=== PATIENT | female | born 1990 | race Caucasian/White ===

== ENCOUNTER 2020-01-03 16:03 | Inpatient (IN) ==
[2020-01-03] MEDS ORDERED: SODIUM CHLORIDE 0.9% 1000ML 2,000 ML IV SCH (16:15)
[2020-01-03] MEDS ORDERED: VANCOMYCIN HCL 1,500 MG in SODIUM CHLORIDE 0.9% 500 ML IV ONE (16:24)
[2020-01-03] MEDS ORDERED: KETOROLAC 30 MG/ML VIAL IV STA (16:24)
[2020-01-03] MEDS ORDERED: VANCOMYCIN CONSULT ACTIVE PRN ×3 (16:24→21:36)
[2020-01-03] MEDS ORDERED: ONDANSETRON INJ 2 MG/ML 2 ML VIAL IV STA (16:24)
[2020-01-03] MEDS ORDERED: CEFEPIME 2,000 MG/20 ML VIAL IV STA (16:24)
--- NOTE | 2020-01-03 16:40 | Emergency Department Note ---
Impression & Plan Atypical pneumonia, Drug abuse, IV, Thrombocytopenia, Hypocalcemia, Hypokalemia ED Provider Note NAME: ARMINDA ANGELES AGE: 29 SEX: F : 1990 ARRIVES VIA: Walk-In INFORMANT: Patient, ED PROVIDER(S): Valente Dawson MD Chief Complaint: Generalized pain, easy bruising HPI: Patient does complain of some generalized pain. The patient states that she had similar symptoms approximate 30 days prior had presented to [facility] had a negative cover test at that time. Patient does admit to IV drug abuse primarily using heroin which she injects in her arms and hands. The patient states that she was struggling today and was thinking of using again but had some over lysed body pain and did notice some easy bruising which she was concerned about. Patient only localizes this to several small areas over the huston nds and feet. The patient denies any trauma. The patient's pain is diffuse nonradiating sharp. The patient has not take anything for it at home. Palpation does make it worse. Patient does complain of some weakness and mild dyspnea. Patient does use tobacco. The patient has had nausea but no vomiting. Patient does not have menstrual periods as the patient has an implant. Patient does have a son. ROS: See HPI for pertinent positives and negatives. A total of 10 systems were reviewed and otherwise negative. Past medical history: See below Surgical history: See below Social history: See below Physical Exam: GENERAL: Ill in appearance, moderate distress. EYE EXAM: Normal conjunctiva. PERRL, no anisocoria and EOM's grossly intact w/o pain. [OROPHARYNX: Moist mucus membranes. Grossly normal dentition. [No exudate, posterior pharynx is clear, no tonsillar/uvular deviation or swelling. No cervical adenopathy, no submental, submandibular, or sublingual swelling.]] NECK: Supple, no nuchal rigidity, no adenopathy, non-tender. No signs of meningismus. LUNGS: Clear to auscultation. Normal chest wall mechanics. HEART: Tachycardic and regular, no MRG. ABDOMEN: Abdomen soft, non-tender, normo-active bowel sounds, no masses, no rebound or guarding. BACK: No CVA TTP. SKIN: No rashes and no bruising. UPPER EXTREMITIES: Small areas of bruising over the dorsal aspect of the bilateral hands, no obvious erythema or fluctuance or drainage. Possible Janeway lesions over the palm. LOWER EXTREMITIES: Grossly normal, no edema. NEURO EXAM: A&O x3, cranial nerves II-XII grossly intact, normal speech, moves all 4 extremities on command w/o issue. Differential diagnoses: Reactive airway disease, pneumonia, pneumothorax, COPD, CHF, infections, cardiac ischemia, pulmonary embolism, musculoskeletal, gastrointestinal, as well as other pathologies. Course: Patient was seen and evaluated the bedside. Full history physical exam was performed. EKG: Indication: Shortness of breath Sinus tachycardia, rate 120, normal intervals, normal axis, no ST changes or T WI. Imaging Studies: Radiology results as stated below per my review in the radiologist's interpretation: XR chest 1V portable CLINICAL HISTORY: weakness RESPIRATORY DIFFICULTY COMPARISON STUDY: No previous studies for comparison. FINDINGS: The heart is normal in size. There are patchy airspace opacities within the left lower lung zone. There is an equivocal opacity within the axillary portion of the right chest. There is no failure. There are no pleural effusions. There is no pneumothorax. IMPRESSION: Left basilar airspace opacities which may represent a pneumonia. Clinical correlation is advocated. Films subsequent to treatment are recommended in follow-up ACT 112: Negative or not required by law. Electronically signed by: Edi Elizondo M.D. 01/03/2020 5:03 PM Dictated: 01/03/201700 Transcribed: 01/03/201700 CT ANGIOGRAM OF THE CHEST CLINICAL HISTORY: Atypical chest pain, cough, shortness of breath. Possible pulmonary embolism COMPARISON STUDY: Chest x-ray dated 01/03/2020 TECHNIQUE: Following the IV administration of 118 mL of Optiray-320, CT angiogram of the thorax was performed from the thoracic inlet to the lung bases utilizing the pulmonary embolus protocol. Images are reviewed in the axial, sagittal, and coronal planes. IV contrast was administered without complication. MIP imaging was performed. A dose lowering technique was utilized adhering to the principles of ALARA. CT DOSE: 235.31 mGy.cm FINDINGS: Images to the upper abdomen reveal hepatic steatosis and probable splenomegaly. Mediastinal and hilar lymph nodes are the upper limits of normal in size, likely reactive. There was no evidence of thoracic aortic dilatation. There were no pulmonary artery filling defects to indicate acute pulmonary embolism. No pleural effusions are visualized. There are multifocal nodular peripheral airspace opacities some which demonstrate potential early cavitation. An infectious/inflammatory etiology including atypical pneumonia is favored over neoplasm. Septic emboli should be considered within the differential. IMPRESSION: 1. No evidence of acute pulmonary embolism 2. Multifocal nodular peripheral airspace opacities some of which appear to demonstrate early cavitation. An infectious/inflammatory etiology is favored over neoplasm. Septic emboli should be considered within the differential 3. Hepatic steatosis and probable splenomegaly ACT 112: Negative or not required by law. Electronically signed by: Edi Elizondo M.D. 01/03/2020 5:47 PM Dictated: 01/03/201738 Transcribed: 01/03/201738 Cardiac monitoring: An order was placed for continuous cardiac monitoring. The monitor shows a rate of 125 with sinus tachycardia rhythm. Procedures: Limited Point of Care Cardiac Ultrasound performed by me: Indication: Tachycardia, shortness of breath Findings: Limited echocardiography revealed trace pericardial fluid. No eviden ce of tamponade. Wall motion appeared grossly normal but with possible enlargement of the RV. HR 120s. Additional findings: IVC is flat with respiration, negative for B-lines bilateral lung lafleur. Impression: Tachycardia with trace pericardial effusion and possible RV enlargement. MDM: Patient does present with concern for IV drug abuse generalized pain. The patient does have some sinus tachycardia. I did perform a bedside [id number] ultrasound which showed may be trace pericardial effusion but no tamponade, and slight enlarged RV. Given this with the patient's known history of IV drug abuse while this could be withdrawal symptoms from her not using heroin the patient does have a flat IVC and is certainly volume depleted. Blood work was obtained along with blood cultures, lactate, empiric antibiotics were ordered. I did use several areas on the patient's hands they are not specifically on the fingertips. The patient may have evidence of some Janeway lesions. Patient does have a normal white count and hemoglobin. Mild thrombocytopenia noted. The patient does have some mild changes in her coagulation studies and associated hypokalemia. Patient did receive additional IV fluids and calcium. The patient does have mild changes in her LFTs and is seen to have hepatic steatosis on her CT angiography of the chest. No evidence of any PE but likely atypical pneumonia versus septic emboli. Patient was admitted to the medicine service by Dr. Henry. Past Med/Surg History Medical History Heroin use Surgical History No pertinent past surgical history Social History Smoking Status: Current every day smoker Hx Substance Use: Yes Non-Prescribed Medications: Heroin Last Used Substance Other:: 3 days prior Feels Safe at Home: Yes Allergies Allergies Allergy/AdvReac Type Severity Reaction Status Date / Time No Known Allergies Allergy Unverified 01/03/20 17:16 Home Meds Home Medications Medication Instructions Recorded Confirmed No Known Home Medications 01/03/20 01/03/20 Results & Data (ED) Vital Signs Vital Signs - 24 hr 01/03/20 16:07 01/03/20 16:11 01/03/20 16:22 Temperature 37.3 C Temperature Source Oral Pulse Rate 116 H 124 H Pulse Rate [Bilateral Apical] Pulse Rate from SpO2 Sensor Respiratory Rate 16 28 H Respiratory Depth Normal Blood Pressure 74/54 L 94/59 L Blood Pressure [Right Arm] Blood Pressure Mean 60 66 Blood Pressure Mean [Right Arm] Pulse Oximetry 99 Oxygen Delivery Method Room Air Room Air Sepsis Recent Fever Within 48 Hours No Sepsis New/Unexplained Change in Mental Status No Sepsis Action Taken by Nursing No Action Required 01/03/20 16:30 01/03/20 16:54 01/03/20 17:00 Temperature Temperature Source Pulse Rate 128 H 129 H 123 H Pulse Rate [Bilateral Apical] Pulse Rate from SpO2 Sensor 129 H 123 H Respiratory Rate 17 22 39 H Respiratory Depth Blood Pressure 90/67 L 84/55 L 86/55 L Blood Pressure [Right Arm] Blood Pressure Mean 73 61 64 Blood Pressure Mean [Right Arm] Pulse Oximetry 94 94 Oxygen Delivery Method Room Air Room Air Sepsis Recent Fever Within 48 Hours Sepsis New/Unexplained Change in Mental Status Sepsis Action Taken by Nursing 01/03/20 17:12 01/03/20 17:15 01/03/20 17:35 Temperature Temperature Source Pulse Rate 112 H 107 H Pulse Rate [Bilateral Apical] Pulse Rate from SpO2 Sensor 113 H 107 H 105 H Respiratory Rate 36 H 30 H Respiratory Depth Blood Pressure 84/52 L 88/50 L 77/40 L Blood Pressure [Right Arm] Blood Pressure Mean 58 63 52 Blood Pressure Mean [Right Arm] Pulse Oximetry 95 94 94 Oxygen Delivery Method Room Air Room Air Room Air Sepsis Recent Fever Within 48 Hours Sepsis New/Unexplained Change in Mental Status Sepsis Action Taken by Nursing 01/03/20 17:41 01/03/20 17:45 01/03/20 17:47 Temperature Temperature Source Pulse Rate 99 H 99 H 102 H Pulse Rate [Bilateral Apical] Pulse Rate from SpO2 Sensor 100 H 99 H 102 H Respiratory Rate 30 H 27 H 21 Respiratory Depth Blood Pressure 80/42 L 77/39 L 80/47 L Blood Pressure [Right Arm] Blood Pressure Mean 57 53 58 Blood Pressure Mean [Right Arm] Pulse Oximetry 94 93 95 Oxygen Delivery Method Room Air Room Air Room Air Sepsis Recent Fever Within 48 Hours Sepsis New/Unexplained Change in Mental Status Sepsis Action Taken by Nursing 01/03/20 17:53 01/03/20 18:00 01/03/20 18:15 Temperature Temperature Source Pulse Rate 107 H 100 H 103 H Pulse Rate [Bilateral Apical] Pulse Rate from SpO2 Sensor 107 H 229 H 102 H Respiratory Rate 27 H 30 H 25 H Respiratory Depth Blood Pressure 81/46 L 79/46 L 71/47 L Blood Pressure [Right Arm] Blood Pressure Mean 59 55 57 Blood Pressure Mean [Right Arm] Pulse Oximetry 98 93 96 Oxygen Delivery Method Room Air Room Air Room Air Sepsis Recent Fever Within 48 Hours Sepsis New/Unexplained Change in Mental Status Sepsis Action Taken by Nursing 01/03/20 18:19 01/03/20 18:30 01/03/20 18:59 Temperature Temperature Source Pulse Rate 102 H 92 H Pulse Rate [Bilateral Apical] 98 H Pulse Rate from SpO2 Sensor 103 H 92 H Respiratory Rate 33 H 30 H 20 Respiratory Depth Blood Pressure 75/45 L 83/53 L Blood Pressure [Right Arm] 78/55 L Blood Pressure Mean 55 58 Blood Pressure Mean [Right Arm] 62 Pulse Oximetry 93 99 97 Oxygen Delivery Method Room Air Room Air Room Air Sepsis Recent Fever Within 48 Hours Sepsis New/Unexplained Change in Mental Status Sepsis Action Taken by Nursing 01/03/20 19:39 01/03/20 19:50 01/03/20 20:17 Temperature Temperature Source Pulse Rate Pulse Rate [Bilateral Apical] 96 H 91 H 91 H Pulse Rate from SpO2 Sensor Respiratory Rate 20 20 20 Respiratory Depth Blood Pressure Blood Pressure [Right Arm] 86/57 L 93/62 L 88/58 L Blood Pressure Mean Blood Pressure Mean [Right Arm] 66 72 68 Pulse Oximetry 98 98 98 Oxygen Delivery Method Room Air Room Air Room Air Sepsis Recent Fever Within 48 Hours Sepsis New/Unexplained Change in Mental Status Sepsis Action Taken by [facility] Medications Current Medication List: was personally reviewed by me Laboratory Data Attestation: I reviewed the patient's lab results. Result diagrams: 01/03/20 16:35 01/03/20 16:35 Lab Results 01/03/20 01/03/20 01/03/20 Range/Units 16:35 16:35 16:35 WBC 8.65 (4.8-10.8) K/uL RBC 4.62 (4.2-5.4) M/uL Hgb 12.7 (12.0-16.0) g/dL Hct 36.1 L (37-47) % MCV 78.1 L (80-100) fL MCH 27.5 (25-34) pg MCHC 35.2 (32-36) g/dL RDW Std Deviation 44.8 (36.4-46.3) fL RDW Coeff of Liliya 15.7 H (11.5-14.5) % Plt Count 107 L (130-400) K/uL Immature Gran % (Auto) 0.8 % Neut % (Auto) 92.8 % Lymph % (Auto) 4.2 % Oliver % (Auto) 2.0 % Eos % (Auto) 0.1 % Baso % (Auto) 0.1 % Neut # (Auto) 8.03 H (1.4-6.5) K/uL Lymph # (Auto) 0.36 L (1.2-3.4) K/uL Oliver # (Auto) 0.17 (0.11-0.59) K/uL Eos # (Auto) 0.01 (0-0.5) K/uL Baso # (Auto) 0.01 (0-0.2) K/uL Immature Gran # (Auto) 0.07 H (0.00-0.02) K/uL Toxic Granulation 1+ Toxic Vacuolation 1+ Dohle Bodies 1+ Platelet Estimate Decreased L (Normal) Echinocytes 1+ ESR (0-21) mm/hr PT (9.0-12.0) Seconds INR (0.9-1.1) APTT (21.0-31.0) Seconds PTT Ratio Sodium 131 L (136-145) mmol/L Potassium 3.2 L (3.5-5.1) mmol/L Chloride 94 L (98-107) mmol/L Carbon Dioxide 27 (21-32) mmol/L Anion Gap 10.0 (3-11) BUN 19 H (7-18) mg/dl Creatinine 1.12 (0.6-1.2) mg/dl Est Cr Clr Drug Dosing 67.9 ml/min Est GFR ( Amer) 78.0 Est GFR (Non-Af Amer) 67.3 BUN/Creatinine Ratio 16.6 (10-20) Glucose 95 (70-99) mg/dl Lactate 3.4 H* (0.4-2.0) mmol/L Calcium 8.3 L (8.5-10.1) mg/dl Magnesium 2.0 (1.8-2.4) mg/dl Total Bilirubin 1.4 H (0.2-1) mg/dl AST 63 H (15-37) U/L ALT 58 (12-78) U/L Alkaline Phosphatase 220 H (45-117) U/L Troponin I < 0.015 (0-0.045) ng/ml C-Reactive Protein 21.30 H (0-0.29) mg/dl Total Protein 7.5 (6.4-8.2) gm/dl Albumin 2.3 L (3.4-5.0) gm/dl Globulin 5.2 H (2.5-4.0) gm/dl Albumin/Globulin Ratio 0.4 L (0.9-2) Procalcitonin (0-0.5) ng/ml TSH 1.640 (0.300-4.500) uIu/ml HCG, Qual (Negative) 01/03/20 01/03/20 01/03/20 Range/Units 16:35 16:35 16:35 WBC (4.8-10.8) K/uL RBC (4.2-5.4) M/uL Hgb (12.0-16.0) g/dL Hct (37-47) % MCV (80-100) fL MCH (25-34) pg MCHC (32-36) g/dL RDW Std Deviation (36.4-46.3) fL RDW Coeff of Liliya (11.5-14.5) % Plt Count (130-400) K/uL Immature Gran % (Auto) % Neut % (Auto) % Lymph % (Auto) % Oliver % (Auto) % Eos % (Auto) % Baso % (Auto) % Neut # (Auto) (1.4-6.5) K/uL Lymph # (Auto) (1.2-3.4) K/uL Oliver # (Auto) (0.11-0.59) K/uL Eos # (Auto) (0-0.5) K/uL Baso # (Auto) (0-0.2) K/uL Immature Gran # (Auto) (0.00-0.02) K/uL Toxic Granulation Toxic Vacuolation Dohle Bodies Platelet Estimate (Normal) Echinocytes ESR 73 H (0-21) mm/hr PT 14.6 H (9.0-12.0) Seconds INR 1.4 H (0.9-1.1) APTT 33.6 H (21.0-31.0) Seconds PTT Ratio 1.2 Sodium (136-145) mmol/L Potassium (3.5-5.1) mmol/L Chloride (98-107) mmol/L Carbon Dioxide (21-32) mmol/L Anion Gap (3-11) BUN (7-18) mg/dl Creatinine (0.6-1.2) mg/dl Est Cr Clr Drug Dosing ml/min Est GFR ( Amer) Est GFR (Non-Af Amer) BUN/Creatinine Ratio (10-20) Glucose (70-99) mg/dl Lactate (0.4-2.0) mmol/L Calcium (8.5-10.1) mg/dl Magnesium (1.8-2.4) mg/dl Total Bilirubin (0.2-1) mg/dl AST (15-37) U/L ALT (12-78) U/L Alkaline Phosphatase (45-117) U/L Troponin I (0-0.045) ng/ml C-Reactive Protein (0-0.29) mg/dl Total Protein (6.4-8.2) gm/dl Albumin (3.4-5.0) gm/dl Globulin (2.5-4.0) gm/dl Albumin/Globulin Ratio (0.9-2) Procalcitonin (0-0.5) ng/ml TSH (0.300-4.500) uIu/ml HCG, Qual Negative (Negative) 01/03/20 Range/Units 16:35 WBC (4.8-10.8) K/uL RBC (4.2-5.4) M/uL Hgb (12.0-16.0) g/dL Hct (37-47) % MCV (80-100) fL MCH (25-34) pg MCHC (32-36) g/dL RDW Std Deviation (36.4-46.3) fL RDW Coeff of Liliya (11.5-14.5) % Plt Count (130-400) K/uL Immature Gran % (Auto) % Neut % (Auto) % Lymph % (Auto) % Oliver % (Auto) % Eos % (Auto) % Baso % (Auto) % Neut # (Auto) (1.4-6.5) K/uL Lymph # (Auto) (1.2-3.4) K/uL Oliver # (Auto) (0.11-0.59) K/uL Eos # (Auto) (0-0.5) K/uL Baso # (Auto) (0-0.2) K/uL Immature Gran # (Auto) (0.00-0.02) K/uL Toxic Granulation Toxic Vacuolation Dohle Bodies Platelet Estimate (Normal) Echinocytes ESR (0-21) mm/hr PT (9.0-12.0) Seconds INR (0.9-1.1) APTT (21.0-31.0) Seconds PTT Ratio Sodium (136-145) mmol/L Potassium (3.5-5.1) mmol/L Chloride (98-107) mmol/L Carbon Dioxide (21-32) mmol/L Anion Gap (3-11) BUN (7-18) mg/dl Creatinine (0.6-1.2) mg/dl Est Cr Clr Drug Dosing ml/min Est GFR ( Amer) Est GFR (Non-Af Amer) BUN/Creatinine Ratio (10-20) Glucose (70-99) mg/dl Lactate (0.4-2.0) mmol/L Calcium (8.5-10.1) mg/dl Magnesium (1.8-2.4) mg/dl Total Bilirubin (0.2-1) mg/dl AST (15-37) U/L ALT (12-78) U/L Alkaline Phosphatase (45-117) U/L Troponin I (0-0.045) ng/ml C-Reactive Protein (0-0.29) mg/dl Total Protein (6.4-8.2) gm/dl Albumin (3.4-5.0) gm/dl Globulin (2.5-4.0) gm/dl Albumin/Globulin Ratio (0.9-2) Procalcitonin 2.38 H (0-0.5) ng/ml TSH (0.300-4.500) uIu/ml HCG, Qual (Negative) Administered Medications Doxycycline Hyclate 100 mg/ (Dextrose) 110 mls @ 50 mls/hr IV NOW STA Stop: 01/03/20 20:55 Last Admin: 01/03/20 19:34 Dose: 50 mls/hr Documented by: [id number] Norepinephrine Bitartrate 8 mg (/ Dextrose) 508 mls @ 11.735 mls/hr IV .Q24H [place]; Protocol Stop: 02/02/20 19:14 Last Admin: 01/03/20 19:37 Dose: 0.05 mcg/kg/min, 11.7 mls/hr Documented by: [id number] Cosigned by: [id number] Discontinued Medications Fentanyl Citrate (Fentanyl Citrate 100 Mcg/2 Ml Vial) 50 mcg IV NOW STA Stop: 01/03/20 17:07 Last Admin: 01/03/20 17:10 Dose: 50 mcg Documented by: [id number] Sodium Chloride (Nss 1000ml) 2,000 mls @ 999 mls/hr IV .Q2H1M [place] Stop: 01/03/20 18:15 Last Infusion: 01/03/20 19:01 Dose: 0 mls/hr Documented by: [id number] Admin: 01/03/20 16:44 Dose: 999 mls/hr Documented by: [id number] Vancomycin HCl 1,500 mg/ (Sodium Chloride) 530 mls @ 200 mls/hr IV NOW ONE Stop: 01/03/20 19:02 Last Admin: 01/03/20 18:01 Dose: 200 mls/hr Documented by: [id number] Cefepime HCl (Maxipime) 2,000 mg in 20 mls @ 5 mls/min IV NOW STA; Protocol Stop: 01/03/20 16:27 Last Admin: 01/03/20 17:14 Dose: 5 mls/min Documented by: [id number] Sodium Chloride (Nss 1000ml) 1,000 mls @ 999 mls/hr IV .Q1H1M ONE Stop: 01/03/20 18:48 Last Infusion: 01/03/20 19:46 Dose: 0 mls/hr Documented by: [id number] Admin: 01/03/20 18:30 Dose: 999 mls/hr Documented by: [id number] Lorazepam (Ativan) 1 mg in 2 mls @ 2 mls/min IV NOW STA Stop: 01/03/20 18:13 Last Admin: 01/03/20 19:41 Dose: Not Given Documented by: [id number] Ioversol (Optiray 320 125ml) 118 ml IV ONCE ONE Stop: 01/03/20 17:27 Last Admin: 01/03/20 17:27 Dose: 118 ml Documented by: [id number] Ketorolac Tromethamine (Ketorolac 30 Mg/Ml Vial) 30 mg IV NOW STA Stop: 01/03/20 16:25 Last Admin: 01/03/20 16:44 Dose: 30 mg Documented by: [id number] Ondansetron HCl (Ondansetron Inj 2 Mg/Ml 2 Ml Vial) 4 mg IV NOW STA Stop: 01/03/20 16:25 Last Admin: 01/03/20 16:44 Dose: 4 mg Documented by: [id number] Discharge Plan Visit Data Chief Complaint: Pain (Generalized) Stated Complaint: GENERALIZED PAIN, DYSPNEA ED Provider: Valente Dawson Discharge Problem: Atypical pneumonia, Drug abuse, IV, Thrombocytopenia, Hypocalcemia, Hypokalemia Forms Stand Alone Forms: [facility] Prescriptions Prescriptions: No Action No Known Home Medications RF: 0
[2020-01-03 16:51] LABS: Mean Corpuscular Hgb Conc 35.2 g/dL (32-36)
[2020-01-03 17:00] LABS: Hematocrit (blood only) 36.1 % (37-47); Hemoglobin 12.7 g/dL (12.0-16.0); Mean Corpuscular Hemoglobin 27.5 pg (25-34); Mean Corpuscular Volume 78.1 fL (80-100); RDW Coefficient of Variation 15.7 % (11.5-14.5); RDW Standard Deviation 44.8 fL (36.4-46.3); Red Blood Count 4.62 M/uL (4.2-5.4); White Blood Count 8.65 K/uL (4.8-10.8)
[2020-01-03 17:01] LABS: Albumin Level 2.3 gm/dl (3.4-5.0); Blood Urea Nitrogen 19 mg/dl (7-18); Carbon Dioxide 27 mmol/L (21-32); Chloride 94 mmol/L (98-107); Glucose 95 mg/dl (70-99); INR 1.4 (0.9-1.1); Partial Thromboplastin Ratio 1.2; Partial Thromboplastin Time 33.6 Seconds (21.0-31.0); Potassium 3.2 mmol/L (3.5-5.1); Prothrombin Time 14.6 Seconds (9.0-12.0); Sodium 131 mmol/L (136-145)
[2020-01-03 17:04] LABS: Alanine Aminotransferase 58 U/L (12-78); Aspartate Aminotransferase 63 U/L (15-37)
--- NOTE | 2020-01-03 17:04 | XRay Report ---
XR chest 1V portable CLINICAL HISTORY: weakness RESPIRATORY DIFFICULTY COMPARISON STUDY: No previous studies for comparison. FINDINGS: The heart is normal in size. There are patchy airspace opacities within the left lower lung zone. There is an equivocal opacity within the axillary portion of the right chest. There is no fail ure. There are no pleural effusions. There is no pneumothorax.[ IMPRESSION: Left basilar airspace opacities which may represent a pneumonia. Clinical correlation is advocated. Films subsequent to treatment are recommended in follow-up ACT 112: Negative or not required by law. Electronically signed by: Edi Elizondo M.D. 01/03/2020 5:03 PM
[2020-01-03] MEDS ORDERED: fentaNYL citrate 100 MCG/2 ML VIAL IV STA ×2 (17:06→22:11)
[2020-01-03 17:14] LABS: BUN Creatinine Ratio 16.6 (10-20); Calcium 8.3 mg/dl (8.5-10.1); Creatinine Clr Calc Pharmacy 67.9 ml/min; Est GFR (Non-African American) 67.3
[2020-01-03 17:24] LABS: Albumin Globulin Ratio 0.4 (0.9-2); Alkaline Phosphatase 220 U/L (45-117); Basophils # (auto) 0.01 K/uL (0-0.2); Basophils % (auto) 0.1 %; Bilirubin,Total 1.4 mg/dl (0.2-1); Dohle Bodies 1+; Echinocytes 1+; Eosinophils # (auto) 0.01 K/uL (0-0.5); Eosinophils % (auto) 0.1 %; Globulin 5.2 gm/dl (2.5-4.0); Immature Granulocytes # (auto) 0.07 K/uL (0.00-0.02); Immature Granulocytes % (auto) 0.8 %; Lymphocytes # (auto) 0.36 K/uL (1.2-3.4); Lymphocytes % (auto) 4.2 %; Monocytes # (auto) 0.17 K/uL (0.11-0.59); Neutrophils # (auto) 8.03 K/uL (1.4-6.5); Neutrophils % (auto) 92.8 %; Platelet Count 107 K/uL (130-400); Platelet Estimate Decreased (Normal); Pregnancy Test, Serum Negative (Negative); Total Protein 7.5 gm/dl (6.4-8.2); Toxic Granulation 1+; Toxic Vacuolation 1+; Troponin I < 0.015 ng/ml (0-0.045)
[2020-01-03] MEDS ORDERED: OPTIRAY 320 125ml IV ONE (17:26)
[2020-01-03] MEDS ORDERED: SODIUM CHLORIDE 0.9% 1000ML 1,000 ML IV ONE (17:48)
--- NOTE | 2020-01-03 17:48 | CT Scan Report ---
CT ANGIOGRAM OF THE CHEST CLINICAL HISTORY: Atypical chest pain, cough, shortness of breath. Possible pulmonary embolism COMPARISON STUDY: Chest x-ray dated 01/03/2020 TECHNIQUE: Following the IV administration of 118 mL of Optiray-320, CT angiogram of the thorax was p erformed from the thoracic inlet to the lung bases utilizing the pulmonary embolus protocol. Images a re reviewed in the axial, sagittal, and coronal planes. IV contrast was administered without complica tion. MIP imaging was performed. A dose lowering technique was utilized adhering to the principles o f ALARA. CT DOSE: 235.31 mGy.cm FINDINGS: Images to the upper abdomen reveal hepatic steatosis and probable splenomegaly. Mediastinal and hilar lymph nodes are the upper limits of normal in size, likely reactive. There was no evidence of thoracic aortic dilatation. There were no pulmonary artery filling defects to indicate acute pulmonary embolism. No pleural effusions are visualized. There are multifocal nodular peripheral airspace opacities some which demonstrate potential early cav itation. An infectious/inflammatory etiology including atypical pneumonia is favored over neoplasm. S eptic emboli should be considered within the differential. IMPRESSION: 1. No evidence of acute pulmonary embolism 2. Multifocal nodular peripheral airspace opacities some of which appear to demonstrate early cavitat ion. An infectious/inflammatory etiology is favored over neoplasm. Septic emboli should be considered within the differential 3. Hepatic steatosis and probable splenomegaly ACT 112: Negative or not required by law. Electronically signed by: Edi Elizondo M.D. 01/03/2020 5:47 PM
[2020-01-03] MEDS ORDERED: LORazepam 1 MG/2 ML VIAL IV STA (18:12)
[2020-01-03] MEDS ORDERED: DOXYCYCLINE HYCLATE 100 MG in DEXTROSE 5% 100 ML IV STA (18:44)
--- NOTE | 2020-01-03 18:45 | History & Physical Report ---
Date of Service January 03, 2020 Assessment & Plan (1) Septic shock: s/p 3+ liters of crystalloid in the ED with refractory hypotension. Thus, levophed initiated in ED and will need ICU admission. ED attending gave cefepime/vancomycin; due to b/l nature of lung findings added doxy for atypical coverage. The painful lesions on her hands/feet are highly suspicious for Osler's nodes from acute infectious endocarditis. CTA chest also concerning for septic emboli. Will need echocardiogram. Blood cultures have been dispatched. Continue NS hydration. IV antibiotics - zosyn, vancomycin, doxycycline. COVID-19 test ordered to be complete. I am not aware that COVID-19 typically causes cavitary lesions in the lungs, however. Recheck lactate NOW. (2) Drug abuse, IV: Patient very honest with her use of IV drugs. Verbal consent given for HIV testing - this was ordered. Check HepB and HepC serologies. Blood cultures for concern of endocarditis. Will need social work assistance, psych services, drug/alcohol rehab, etc following this admission. Tox screen ordered. (3) Coagulopathy: Uncertain, given the low platelets, if she has early DIC from septic shock. Alternatively she could have liver dysfunction from underling infectious hepatitis. Would check fibrinogen, d-dimer, and FDP. Check HepB, HepC serologies. (4) Abnormal LFTs: Uncertain of chronicity. Check HepB, HepC serologies. Could be due to sepsis/bacteremia itself. Check COVID-19 PCR. See above re: other w/u and management. (5) Hypokalemia: Give KCL in IVF. Mag level noted to be normal. (6) Hyponatremia: Likely due to volume depletion in setting of septic shock. NS hydration. Serial labs. (7) Thrombocytopenia: Differential - DIC / sepsis vs endocarditis vs liver dysfunction/hypersplenism vs nutritional deficiency vs combination of factors. Daily CBC. (8) Hepatosplenomegaly: Could be due to primary liver disease vs endocarditis vs other. See above. (9) DVT prophylaxis: SCDs for now. Patient is critically ill requiring ICU services. 70 minutes of critical care time -- including shock management, coordinating care with ICU team, etc. History of Present Illness Chief Complaint: fevers, chills, pleuritic chest pain Primary Care Provider: RUDDY PCP 29yo female with h/o prior suboxone use and recent IV drug abuse (heroin) presents with 2+ weeks of fevers to 104 degrees, chills, diffuse myalgias, severe foot and hand pain starting 2 days ago, "bruises" on her hands/feet also starting 2 days ago, headache, pleuritic chest pain for several days, very poor appetite, dizziness/lightheadedness, and simply feeling unwell. She openly admits to IV drug abuse starting in the last couple of months. She states that she had run out of her suboxone and thus turned to street drugs. She admits to using IV heroin, typically injecting in the arms. She denies sick contacts or travel. Sometime about 2 weeks ago she was tested for COVID-19 in [place] and her test was negative. Denies loss of taste or smell; denies ear pain, sore throat, nasal congestion, abdominal pain, vomiting or diarrhea. She verbally consents to have HIV testing as well as hepatitis testing. Allergies Allergy/AdvReac Type Severity Reaction Status Date / Time No Known Allergies Allergy Unverified 01/03/20 17:16 Home Medications Home Medications Medication Instructions Recorded Confirmed Type No Known Home Medications 01/03/20 01/03/20 History Past Med/Surg History Medical History Heroin use Surgical History No pertinent past surgical history Family History Other Adopted Social History (Updated 01/03/20 @ 20:26 by Laz Henry) Smoking Status: Current every day smoker Tobacco Type: Cigarettes Hx Alcohol Use: No Hx Substance Use: Yes Non-Prescribed Medications: Heroin Last Used Substance Other:: 3 days prior Substance Use Type Other:: previously took suboxone marital status: Single Current Living Situation: Other current occupational status: unemployed How many Children do You have: 2 How many Children do You have Comment: ages 7 and 8; 6yo stays with father; 7yo stays with grandmother Feels Safe at Home: Yes Review of Systems Constitutional: + fever, + chills, + body aches, + fatigue, + weakness, + anorexia and + weight loss Eyes: no worsening vision Ear, Nose, Mouth, Throat: no nasal discharge, no sore throat and no dysphagia Respiratory: + cough, + dyspnea, + dyspnea on exertion and + pain on inspiration Cardiovascular: as per Subjective / HPI and + chest pain; no orthopnea, no paroxysmal nocturnal dyspnea and no edema Gastrointestinal: no abdominal pain, no nausea, no vomiting and no diarrhea/loose stools Genitourinary: no dysuria Musculoskeletal: + myalgia; no back pain and no neck pain Integumentary: + lesions (hands/feet - PAINFUL ) Neurologic: + headache(s); no localized weakness and no loss of sensation Psychiatric: + hopelessness Endocrine: no diabetes Hematologic / Lymphatic: no easy bleeding Physical Exam Constitutional: + acute distress (in body-wide pain ), + ill appearing and + frail appearing; no altered mental status Eyes: + anicteric sclerae and PERRL ENMT: Mouth: + tongue abnormality (thick residue - thrush? ) and + dry oral mucous membranes Neck: trachea midline, no thyromegaly Respiratory: + tachypneic Auscultation: + crackles (b/l bases ) Cardiovascular: Rate/Rhythm: regular rhythm and + tachycardic Heart Sounds: normal S1 and normal S2; no murmur Vessels: posterior tibial pulses present and dorsalis pedis pulses present; no JVD Extremities: no edema Gastrointestinal (Abdomen): Inspection/Auscultation: normal bowel sounds Percussion/Palpation: + abdomen tender (RUQ), abdomen soft and + hepatosplenomegaly; no guarding Musculoskeletal: Extremities: + clubbing Skin: suspected Osler's nodes and [place] lesions on soles of feet b/l, palms of hands, and in between first/2nd toes of left foot Psychiatric: Orientation: alert and oriented x 3 Lymphatic: no cervical lymphadenopathy Results & Data Results & Data ([facility]) Vital Signs (Past 12 Hours) Vital Signs Temp Pulse Resp BP Pulse Ox 01/03/20 18:30 92 H 30 H 83/53 L 99 01/03/20 18:19 102 H 33 H 75/45 L 93 01/03/20 18:15 103 H 25 H 71/47 L 96 01/03/20 18:00 100 H 30 H 79/46 L 93 01/03/20 17:53 107 H 27 H 81/46 L 98 01/03/20 17:47 102 H 21 80/47 L 95 01/03/20 17:45 99 H 27 H 77/39 L 93 01/03/20 17:41 99 H 30 H 80/42 L 94 01/03/20 17:35 77/40 L 94 01/03/20 17:15 107 H 30 H 88/50 L 94 01/03/20 17:12 112 H 36 H 84/52 L 95 01/03/20 17:00 123 H 39 H 86/55 L 94 01/03/20 16:54 129 H 22 84/55 L 94 01/03/20 16:30 128 H 17 90/67 L 01/03/20 16:22 124 H 28 H 94/59 L 01/03/20 16:07 37.3 C 116 H 16 74/54 L 99 Laboratory Results Laboratory Results - last 24 hr 01/03/20 01/03/20 01/03/20 16:35 16:35 16:35 WBC 8.65 RBC 4.62 Hgb 12.7 Hct 36.1 L MCV 78.1 L MCH 27.5 MCHC 35.2 RDW Std Deviation 44.8 RDW Coeff of Liliya 15.7 H Plt Count 107 L Immature Gran % (Auto) 0.8 Neut % (Auto) 92.8 Lymph % (Auto) 4.2 Motley % (Auto) 2.0 Eos % (Auto) 0.1 Baso % (Auto) 0.1 Neut # (Auto) 8.03 H Lymph # (Auto) 0.36 L Motley # (Auto) 0.17 Eos # (Auto) 0.01 Baso # (Auto) 0.01 Immature Gran # (Auto) 0.07 H Toxic Granulation 1+ Toxic Vacuolation 1+ Dohle Bodies 1+ Platelet Estimate Decreased L Echinocytes 1+ ESR PT INR APTT PTT Ratio Sodium 131 L Potassium 3.2 L Chloride 94 L Carbon Dioxide 27 Anion Gap 10.0 BUN 19 H Creatinine 1.12 Est Cr Clr Drug Dosing 67.9 Est GFR ( Amer) 78.0 Est GFR (Non-Af Amer) 67.3 BUN/Creatinine Ratio 16.6 Glucose 95 Lactate 3.4 H* Calcium 8.3 L Magnesium 2.0 Total Bilirubin 1.4 H AST 63 H ALT 58 Alkaline Phosphatase 220 H Troponin I < 0.015 C-Reactive Protein 21.30 H Total Protein 7.5 Albumin 2.3 L Globulin 5.2 H Albumin/Globulin Ratio 0.4 L Procalcitonin TSH 1.640 HCG, Qual Random Cortisol Urine Color Urine Appearance Urine pH Ur Specific [place] Urine Protein Urine Glucose (UA) Urine Ketones Urine Blood Urine Nitrite Urine Bilirubin Urine Urobilinogen Ur Leukocyte Esterase Urine RBC Urine WBC Ur Epithelial Cells Urine Bacteria Salicylates Urine Opiates Screen Ur Methadone, Qual Acetaminophen Urine Barbiturates Ur Phencyclidine (PCP) U Amphetamin/Meth Scrn MDMA (Ecstasy) Screen U Benzodiazepines Scrn Ur Cocaine Metabolite U Marijuana (THC) Screen Hepatitis A IgM Ab Hep Bs Antigen Hep B Core IgM Ab Hepatitis C Antibody 01/03/20 01/03/20 01/03/20 16:35 16:35 16:35 WBC RBC Hgb Hct MCV MCH MCHC RDW Std Deviation RDW Coeff of Liliya Plt Count Immature Gran % (Auto) Neut % (Auto) Lymph % (Auto) Motley % (Auto) Eos % (Auto) Baso % (Auto) Neut # (Auto) Lymph # (Auto) Motley # (Auto) Eos # (Auto) Baso # (Auto) Immature Gran # (Auto) Toxic Granulation Toxic Vacuolation Dohle Bodies Platelet Estimate Echinocytes ESR 73 H PT 14.6 H INR 1.4 H APTT 33.6 H PTT Ratio 1.2 Sodium Potassium Chloride Carbon Dioxide Anion Gap BUN Creatinine Est Cr Clr Drug Dosing Est GFR ( Amer) Est GFR (Non-Af Amer) BUN/Creatinine Ratio Glucose Lactate Calcium Magnesium Total Bilirubin AST ALT Alkaline Phosphatase Troponin I C-Reactive Protein Total Protein Albumin Globulin Albumin/Globulin Ratio Procalcitonin TSH HCG, Qual Negative Random Cortisol Urine Color Urine Appearance Urine pH Ur Specific [place] Urine Protein Urine Glucose (UA) Urine Ketones Urine Blood Urine Nitrite Urine Bilirubin Urine Urobilinogen Ur Leukocyte Esterase Urine RBC Urine WBC Ur Epithelial Cells Urine Bacteria Salicylates Urine Opiates Screen Ur Methadone, Qual Acetaminophen Urine Barbiturates Ur Phencyclidine (PCP) U Amphetamin/Meth Scrn MDMA (Ecstasy) Screen U Benzodiazepines Scrn Ur Cocaine Metabolite U Marijuana (THC) Screen Hepatitis A IgM Ab Hep Bs Antigen Hep B Core IgM Ab Hepatitis C Antibody 01/03/20 01/03/20 01/03/20 16:35 19:41 19:41 WBC RBC Hgb Hct MCV MCH MCHC RDW Std Deviation RDW Coeff of Liliya Plt Count Immature Gran % (Auto) Neut % (Auto) Lymph % (Auto) Motley % (Auto) Eos % (Auto) Baso % (Auto) Neut # (Auto) Lymph # (Auto) Motley # (Auto) Eos # (Auto) Baso # (Auto) Immature Gran # (Auto) Toxic Granulation Toxic Vacuolation Dohle Bodies Platelet Estimate Echinocytes ESR PT INR APTT PTT Ratio Sodium Potassium Chloride Carbon Dioxide Anion Gap BUN Creatinine Est Cr Clr Drug Dosing Est GFR ( Amer) Est GFR (Non-Af Amer) BUN/Creatinine Ratio Glucose Lactate Calcium Magnesium Total Bilirubin AST ALT Alkaline Phosphatase Troponin I C-Reactive Protein Total Protein Albumin Globulin Albumin/Globulin Ratio Procalcitonin 2.38 H TSH HCG, Qual Random Cortisol Urine Color Urine Appearance Urine pH Ur Specific [place] Urine Protein Urine Glucose (UA) Urine Ketones Urine Blood Urine Nitrite Urine Bilirubin Urine Urobilinogen Ur Leukocyte Esterase Urine RBC Urine WBC Ur Epithelial Cells Urine Bacteria Salicylates < 1.7 L Urine Opiates Screen Ur Methadone, Qual Acetaminophen 6 L Urine Barbiturates Ur Phencyclidine (PCP) U Amphetamin/Meth Scrn MDMA (Ecstasy) Screen U Benzodiazepines Scrn Ur Cocaine Metabolite U Marijuana (THC) Screen Hepatitis A IgM Ab Hep Bs Antigen Pending Hep B Core IgM Ab Hepatitis C Antibody Pending 01/03/20 01/03/20 01/03/20 19:41 19:41 20:15 WBC RBC Hgb Hct MCV MCH MCHC RDW Std Deviation RDW Coeff of Liliya Plt Count Immature Gran % (Auto) Neut % (Auto) Lymph % (Auto) Motley % (Auto) Eos % (Auto) Baso % (Auto) Neut # (Auto) Lymph # (Auto) Motley # (Auto) Eos # (Auto) Baso # (Auto) Immature Gran # (Auto) Toxic Granulation Toxic Vacuolation Dohle Bodies Platelet Estimate Echinocytes ESR PT INR APTT PTT Ratio Sodium Potassium Chloride Carbon Dioxide Anion Gap BUN Creatinine Est Cr Clr Drug Dosing Est GFR ( Amer) Est GFR (Non-Af Amer) BUN/Creatinine Ratio Glucose Lactate Calcium Magnesium Total Bilirubin AST ALT Alkaline Phosphatase Troponin I C-Reactive Protein Total Protein Albumin Globulin Albumin/Globulin Ratio Procalcitonin TSH HCG, Qual Random Cortisol Pending Urine Color Yellow Urine Appearance Slightly Cloudy Urine pH 6.5 Ur Specific [place] <= 1.005 Urine Protein Negative Urine Glucose (UA) Negative Urine Ketones Negative Urine Blood Trace H Urine Nitrite Negative Urine Bilirubin Negative Urine Urobilinogen Negative Ur Leukocyte Esterase 2+ H Urine RBC Pending Urine WBC Pending Ur Epithelial Cells Pending Urine Bacteria Pending Salicylates Urine Opiates Screen Ur Methadone, Qual Acetaminophen Urine Barbiturates Ur Phencyclidine (PCP) U Amphetamin/Meth Scrn MDMA (Ecstasy) Screen U Benzodiazepines Scrn Ur Cocaine Metabolite U Marijuana (THC) Screen Hepatitis A IgM Ab Pending Hep Bs Antigen Hep B Core IgM Ab Pending Hepatitis C Antibody 01/03/20 20:15 WBC RBC Hgb Hct MCV MCH MCHC RDW Std Deviation RDW Coeff of Liliya Plt Count Immature Gran % (Auto) Neut % (Auto) Lymph % (Auto) Motley % (Auto) Eos % (Auto) Baso % (Auto) Neut # (Auto) Lymph # (Auto) Motley # (Auto) Eos # (Auto) Baso # (Auto) Immature Gran # (Auto) Toxic Granulation Toxic Vacuolation Dohle Bodies Platelet Estimate Echinocytes ESR PT INR APTT PTT Ratio Sodium Potassium Chloride Carbon Dioxide Anion Gap BUN Creatinine Est Cr Clr Drug Dosing Est GFR ( Amer) Est GFR (Non-Af Amer) BUN/Creatinine Ratio Glucose Lactate Calcium Magnesium Total Bilirubin AST ALT Alkaline Phosphatase Troponin I C-Reactive Protein Total Protein Albumin Globulin Albumin/Globulin Ratio Procalcitonin TSH HCG, Qual Random Cortisol Urine Color Urine Appearance Urine pH Ur Specific [place] Urine Protein Urine Glucose (UA) Urine Ketones Urine Blood Urine Nitrite Urine Bilirubin Urine Urobilinogen Ur Leukocyte Esterase Urine RBC Urine WBC Ur Epithelial Cells Urine Bacteria Salicylates Urine Opiates Screen Pending Ur Methadone, Qual Pending Acetaminophen Urine Barbiturates Pending Ur Phencyclidine (PCP) Pending U Amphetamin/Meth Scrn Pending MDMA (Ecstasy) Screen Pending U Benzodiazepines Scrn Pending Ur Cocaine Metabolite Pending U Marijuana (THC) Screen Pending Hepatitis A IgM Ab Hep Bs Antigen Hep B Core IgM Ab Hepatitis C Antibody Diagnostic Findings 1. CTA chest - IMPRESSION: 1. No evidence of acute pulmonary embolism 2. Multifocal nodular peripheral airspace opacities some of which appear to demonstrate early cavitation. An infectious/inflammatory etiology is favored over neoplasm. Septic emboli should be considered within the differential 3. Hepatic steatosis and probable splenomegaly 2. EKG - my reading - sinus tach, RSR' lead III Code Status & VTE Plan Code Status full code VTE Prophylaxis Plan VTE Prophylaxis will be ordered: Yes Critical Care Time Critical Care Time: Yes Total Critical Care Time: 70 PG Care Time/CCT Total # of Minutes Spent Total Time Spent with Patient: Total time spent is greater than 50% in coordination of care (as documented) at patient's floor/unit and/or counseling patient: Critical Care Time: Yes Total Critical Care Time: 70 Coding Level of Care Code None Diagnoses Septic shock A41.9; R65.21 Drug abuse, IV F19.10 Coagulopathy D68.9 Abnormal LFTs R94.5 Hypokalemia E87.6 Hyponatremia E87.1 Thrombocytopenia D69.6 Hepatosplenomegaly R16.2 DVT prophylaxis Z29.9 Additional Codes Critical Care Time - Critical Care Time: Yes ([id number])
[2020-01-03] MEDS ORDERED: STAT IV Infusion **Titration per Protocol STA (19:13)
[2020-01-03] MEDS: NOREPINEPHRINE BIT INJ 8 MG in DEXTROSE 5% 500 ML IV SCH (19:37)
[2020-01-03] MEDS ORDERED: VANCOMYCIN HCL 1,250 MG in SODIUM CHLORIDE 0.9% 250 ML IV SCH (19:45)
[2020-01-03 20:24] LABS: Appearance Urine Slightly Cloudy (Clear); Bilirubin Urine Negative (Negative); Blood Urine Trace (Negative); Color Urine Yellow; Glucose Urine UA Negative (Negative); Ketones Urine Negative (Negative); Leukocyte Esterase Urine 2+ (Negative); Nitrite Urine Negative (Negative); Protein Urine Negative (Negative); Specific Gravity Urine <= 1.005 (1.000-1.030); Urobilinogen Urine Negative (Negative); pH Urine 6.5 (4.5-7.5)
[2020-01-03 20:25] LABS: Acetaminophen 6 ug/ml (10-30); Salicylate < 1.7 mg/dl (2.8-20)
[2020-01-03 20:33] LABS: Trichomonas Urine Present (None Prsent)
[2020-01-03 20:42] LABS: Epithelial Cell Urine >30 /lpf (0-5)
[2020-01-03 20:43] LABS: Amphetamines+Metham, Urine Pos (Neg); Bacteria Urine 2+ (Negative); Barbiturates, Urine Neg (Neg); Benzodiazepine, Urine Neg (Neg); Cocaine, Urine Neg (Neg); MDMA (Ecstacy), Urine Neg (Neg); Methadone, Urine Neg (Neg); Opiate, Urine Pos (Neg); Phencyclidine, Urine Neg (Neg); RBC Urine 0-4 /hpf (0-4); WBC Urine >30 /hpf (0-5)
[2020-01-03 20:47] LABS: Hepatitis B Surface Antigen Neg (Neg)
[2020-01-03] MEDS ORDERED: SODIUM CHLORIDE 0.9% 1000ML 500 ML IV ONE (20:53)
[2020-01-03 21:15] LABS: Hepatitis C IgG 13Yrs+Old_Rflx Neg (Neg)
[2020-01-03] MEDS ORDERED: PIPERACILL/TAZOBAC CONSULT ACTIVE PRN (21:36)
[2020-01-03] MEDS ORDERED: ICU PROTOCOL FOR HYPERGLYCEMIA PRN (21:36)
[2020-01-03] MEDS ORDERED: NSS + 20MEQ KCL 20 MEQ/1,000 ML BAG IV SCH (22:00)
[2020-01-03] MEDS ORDERED: fentaNYL citrate 100 MCG/2 ML VIAL ONE (22:14)
--- NOTE | 2020-01-03 22:15 | Critical Care Consultation ---
Date of Consultation January 03, 2020 Assessment & Plan (1) Septic shock: Reason Critically Ill: 29-year-old female with history of IV drug abuse presents with septic shock presentation suspicious of endocarditis with showering emboli Neuro - [facility] ICU: Negative IV drug abusepatient claims to have been on Suboxone but ran out of medications and turned back to IV heroin -UDS positive for opioids and methamphetamine, final pending -HIV and hepatitis panel pending -Acetaminophen and salicylates negative -Consider psych evaluation once stable Cardiac - Shocklikely septic in origin, however cannot rule out cardiogenic shock especially with history of IV drug abuse and high probability for endocarditis -Initially resuscitated with 3 L crystalloid, levo fed drip -CVC inserted, titrate drip for maps greater than 65 -Random cortisol 45, no indication for hydrocortisone at this time -CT chest: Negative for PE, multifocal nodular peripheral airspace opacities several which appear to demonstrate early cavitation. Suspicious for septic emboli and infectious etiology -Likely patient has developed endocarditis and showering septic emboli -TTE pending -Continue broad-spectrum antibiotics as discussed below -Continue monitor on telemetry in ICU Respiratory - Currently maintaining sats on room air, no labored breathing or respiratory distress -CT as above, continue broad-spectrum antibiotic Continuous monitoring on pulse ox -Patient high risk for decompensation and need for intubation, monitor closely in ICU GI - Hepatosplenomegalynoted on CT and palpable liver on exam -Hepatitis panel pending -Mildly elevated LFTs, INR elevated -Patient may have shock liver in the setting of hypotension, trend LFTs -Consider ultrasound if not improving RENAL/LYTES - Creatinine within normal limits, monitor electrolytes with routine BMPs and replete as indicated Continue IV fluid resuscitation - Foleystrict I's and O's ENDO - No history of diabetes thyroid disease ICU hyperglycemic protocol HEME - Thrombocytopeniamultiple potential etiologies including sepsis, liver dysfunction, splenomegaly,ect -No signs of bleeding, monitor for now with routine CBCs ID - Sepsispatient presents with fevers, elevated lactate, and elevated procalcitonin in the setting of hypotension -CTA chest consistent with infectious process suspicious for septic emboli, presentation consistent with endocarditis considering IV drug abuse -COVID-19 PCR negative -MRSA positive -UA positive -Urine culture and blood cultures pending -Continue high-dose vancomycin, doxycycline, and cefepime; wean with culture results LINES/IV ACCESS - CVC right IJ, PIV's DVT PROPHYLAXIS - SCDs I have personally spent 60 minutes of critical care time in the direct management of this patient. This is a life/limb threatening event. This includes time spent evaluating patient, direct bedside care, chart review, placing orders, interpretation of diagnostic studies, discussion with consultants, patient, and family members, as well as other required patient management activities. This time is exclusive of all separately billable procedures, and teaching time and separate from and in addition to any other critical care service time. Thank you for allowing us to participate in the care of this patient. Please refer to my attending physician's documentation for any further recommendations. (2) Hepatosplenomegaly: (3) Thrombocytopenia: (4) Abnormal LFTs: (5) Atypical pneumonia: (6) Drug abuse, IV: History of Present Illness Attending Physician: Laz Henry History of Present Illness Patient is a 29-year-old female with history of IV drug abuse and current IV heroin user with last use this morning. She presented to the emergency department this afternoon with complaints of generalized pain, weakness, and shortness of breath, nausea, and fevers. She has had fevers for 2+ weeks and had a negative COVID test in [place] 2 weeks ago. She complains of severe foot and hand pain that started 2 days ago with associated bruising. She is also had headaches and pleuritic chest pain for several days. Patient was found to be hypotensive, febrile, and elevated lactate. A CTA of the chest was concerning for septic emboli, and painful lesions on her hands and feet were suspicious for ulcers nodes. Overall presentation highly suspicious for endocarditis with septic emboli. She was initially bolused with 3 L crystalloid but remained hypotensive and was started on vasopressors and central line inserted. Patient was started on cefepime and vancomycin in the emergency department. She is now transferred to the ICU for further management at this time. Allergies Allergy/AdvReac Type Severity Reaction Status Date / Time No Known Allergies Allergy Unverified 01/03/20 17:16 Home Medications Home Medications Medication Instructions Recorded Confirmed Type No Known Home Medications 01/03/20 01/03/20 History Patient History Medical History Heroin use Surgical History No pertinent past surgical history Family History Other Adopted Social History (Updated 01/03/20 @ 20:26 by Laz Henry) Smoking Status: Current every day smoker Tobacco Type: Cigarettes Second Hand Exposure: Yes; Do You Dip or Chew Tobacco: No; Tobacco Cessation Education Requested by Patient: No Hx Alcohol Use: No Hx Substance Use: Yes Non-Prescribed Medications: Heroin Last Used Substance: Hours (ago) Last Used Substance Other:: 01/03/2020 AM Substance Use Type Other:: previously took suboxone Preferred Language: Georgian Communication Ability: Effective Beliefs That Will Affect Care: None marital status: Single Current Living Situation: Alone current occupational status: unemployed How many Children do You have: 2 How many Children do You have Comment: ages 7 and 8; 6yo stays with father; 5yo stays with grandmother Other Information That Helps Us Care for You: No Feels Safe at Home: Yes Safety Concerns: Feels Safe At This Time Review of Systems Review of Systems: All systems reviewed & are unremarkable except as noted in HPI & below Physical Exam Constitutional: + thin, + frail appearing, cooperative and + in distress Eyes: PERRL, conjunctivae normal, anicteric sclerae ENMT: external ear and nose normal, oropharynx normal Neck: trachea midline, no thyromegaly Respiratory: normal respiratory effort, lungs clear to auscultation no labored breathing Auscultation: no crackles and no wheezes Cardiovascular: RRR, no murmur, no edema Heart Sounds: normal S1 and normal S2 Vessels: no JVD Extremities: normal capillary refill; no edema Gastrointestinal (Abdomen): Inspection/Auscultation: abdomen normal to inspection and normal bowel sounds Percussion/Palpation: abdomen soft and + hepatomegaly Skin: Bruising and petechia to the hands and feet Neurologic: PERRL, EOMI, accommodation nl, no face palsy, no dysarthria Psychiatric: Orientation: alert and oriented x 3 Genitourinary: Indwelling [place]os catheter Results & Data Results & Data ([facility]) Vital Signs (Past 12 Hours) Vital Signs Temp Pulse Pulse Resp BP BP Pulse Ox 01/03/20 21:05 89 20 96/59 L 96 01/03/20 20:49 91 H 20 79/49 L 96 01/03/20 20:17 91 H 20 88/58 L 98 01/03/20 19:50 91 H 20 93/62 L 98 01/03/20 19:39 96 H 20 86/57 L 98 01/03/20 18:59 98 H 20 78/55 L 97 01/03/20 18:30 92 H 30 H 83/53 L 99 01/03/20 18:19 102 H 33 H 75/45 L 93 01/03/20 18:15 103 H 25 H 71/47 L 96 01/03/20 18:00 100 H 30 H 79/46 L 93 01/03/20 17:53 107 H 27 H 81/46 L 98 01/03/20 17:47 102 H 21 80/47 L 95 01/03/20 17:45 99 H 27 H 77/39 L 93 01/03/20 17:41 99 H 30 H 80/42 L 94 01/03/20 17:35 77/40 L 94 01/03/20 17:15 107 H 30 H 88/50 L 94 01/03/20 17:12 112 H 36 H 84/52 L 95 01/03/20 17:00 123 H 39 H 86/55 L 94 01/03/20 16:54 129 H 22 84/55 L 94 01/03/20 16:30 128 H 17 90/67 L 01/03/20 16:22 124 H 28 H 94/59 L 01/03/20 16:07 37.3 C 116 H 16 74/54 L 99 Coding Level of Care Code Critical Care 1st 30-74 mins Diagnoses Septic shock A41.9; R65.21 Hepatosplenomegaly R16.2 Thrombocytopenia D69.6 Abnormal LFTs R94.5 Atypical pneumonia J18.9 Drug abuse, IV F19.10
--- NOTE | 2020-01-03 22:15 | Procedure Note ---
Procedure Note Date of Service January 03, 2020 Note INTERNAL JUGULAR CENTRAL LINE PROCEDURE NOTE: Procedure: Internal Jugular Central Line Placement Attending: Dr. Aquiles Flores Provider: MAIDA Bennett Indication: Central Drug Administration Anesthesia: Lidocaine 1% Line placed emergently in the setting of septic shock/endocarditis with showering emboli, currently requiring vasopressors A time-out was completed verifying correct patient, procedure, site, positioning, and implants(s) or special equipment if applicable. Patients right neck was cleansed and draped in the typical sterile fashion using Chloraprep. The Internal Jugular Vein and Carotid Artery were identified using ultrasound. The superficial tissue was anesthetized using 3 mL of 1% lidocaine without epinephrine under direct visualization with the ultrasound. After adequate anesthetization was achieved, the Internal Jugular vein was cannulated under direct ultrasound guidance using an introducer needle on a syringe. Good venous blood return was maintained prior to removal of syringe from introducer needle. Using Seldinger Technique, a guide wire was advanced through the introducer needle without resistance. The introducer needle was removed and ultrasound images were obtained of the guide wire within the Internal Jugular Vein and saved to the patients medical record. A small incision was made in penetrating fashion at the guide wire insertion site utilizing an 11 blade scalpel. The dilator was advanced to the vessel without resistance. The dilator was exchanged for the triple lumen catheter which was advanced into the vessel without resistance. The guide wire was removed intact from the catheter without issue. Claves were placed on each catheter tip with confirmation of good blood flow from each lumen. Each port was easily flushed with sterile saline. The catheter was placed at 15 cm and sutured in place. BioPatch was applied to the catheter and a sterile Tegaderm dressing was applied over the catheter with careful attention to sterility. Patient tolerated procedure well. No immediate complications were met. Post procedure x-ray was completed, placement was appropriate and no pneumothorax was noted. Images obtained are saved for permanent record Procedural Ultrasound Guidance: Procedure Date: 01/03/2020 Indication: Central line insertion Attending: Dr. Aquiles Flores Provider: MAIDA Bennett Artery AND Vein visualized: Yes Compressible Vein: Yes Guidewire or Short Catheter seen in vein prior to dilation: Yes Line confirmed in Vein with ultrasound: Yes Images obtained are saved for permanent record. Coding CPT Codes Tubes, Drains, and Vasc Access - Tubes, Drains, and Vasc Access: [id number] Place catheter in vein superior or inferior vena cava ([id number]) Tubes, Drains, and Vasc Access - Tubes, Drains, and Vasc Access: [id number] Ultrasound Guidance For Vascular ([id number]) [facility] [place] Procedure Codes (Charges) Tubes, Drains, and Vasc Access Procedure 1: Tubes, Drains, and Vasc Access: [id number] Place catheter in vein superior or inferior vena cava Procedure 2: Tubes, Drains, and Vasc Access: [id number] Ultrasound Guidance For Vascular
[2020-01-03] MEDS: NYSTATIN SUSP 500,000 U/5 ML UDC PO SCH (22:17)
[2020-01-03] MEDS: PIPERACILLIN/TAZOBACTAM 3.375 GM in DEXTROSE 5% 100 ML IV SCH (22:18)
[2020-01-03 23:27] LABS: Fibrinogen 434 mg/dl (184-400)
[2020-01-03 23:40] LABS: D Dimer 3110 ug/L FEU (0-500)
[2020-01-03] MEDS ORDERED: KETOROLAC TROMETHAMINE 15 MG/ML VIAL IV PRN (23:50)
[2020-01-04] MEDS: fentaNYL citrate 100 MCG/2 ML VIAL IV PRN ×2 (03:10→05:16)
[2020-01-04] MEDS ORDERED: DOXYCYCLINE HYCLATE 100 MG in DEXTROSE 5% 100 ML IV SCH (04:00)
--- NOTE | 2020-01-04 04:39 | Pharmacy Report ---
Pharmacy Abx Dose Short Note - Date of Service January 04, 2020 - Assessment & Plan Assessment * Ms Linares is a 29 year old F receiving Vanc/Zosyn/Doxy for treatment of septic shock, suspicious for endocarditis w/ showering septic emboli * PMH is significant for IV drug abuse (last use 01/03/20). * Pt presents with fever, elevated lactic acid and procalcitonin, hypotension. Chest CT is consistent w/ infectious process suspicious for septic emboli/endocarditis. Painful lesions on hands/feet present on admission and highly suspicious for Osler's nodes. Plan Vancomycin * Vancomycin 1500mg (~25mg/kg) IV x1 dose, then * Vancomycin 1250mg (~20mg/kg) IV q12h * dosed aggressively d/t severity of presentation * Patient's estimated p'kinetic parameters (based on CrCl ~ 68mL/min): * Ke ~ 0.061/hr t1/2 ~ 11.4hr Vd ~ 0.7L/kg * Goal trough level for endocarditis: ~18 to 22 mcg/mL * Trough level ordered for 01/04 prior to the 3rd maintenance dose. * This is prior to steady-state, but want to evaluate level early to ensure safety/efficacy of dosing regimen. Zosyn 3.375gm IV q8h, extended infusion Doxycycline 100mg IV q12h Pharmacy will continue to follow and will adjust dose/frequency as necessary. Thank you.
[2020-01-04 04:43] LABS: Mean Corpuscular Hgb Conc 34.6 g/dL (32-36)
[2020-01-04] MEDS: NICOTINE 7 MG/24 HR TDSY TD SCH (04:51)
[2020-01-04 04:54] LABS: INR 1.4 (0.9-1.1); Prothrombin Time 14.6 Seconds (9.0-12.0)
[2020-01-04] MEDS ORDERED: ONDANSETRON INJ 2 MG/ML 2 ML VIAL IV PRN (04:56)
[2020-01-04 05:11] LABS: Hematocrit (blood only) 31.8 % (37-47); Mean Corpuscular Volume 77.9 fL (80-100); RDW Coefficient of Variation 15.7 % (11.5-14.5); RDW Standard Deviation 44.9 fL (36.4-46.3); Red Blood Count 4.08 M/uL (4.2-5.4); White Blood Count 17.05 K/uL (4.8-10.8)
[2020-01-04 05:12] LABS: Albumin Globulin Ratio 0.4 (0.9-2); Albumin Level 1.6 gm/dl (3.4-5.0); Basophils # (auto) 0.01 K/uL (0-0.2); Basophils % (auto) 0.1 %; Bilirubin Direct 0.3 mg/dl (0-0.2); Bilirubin,Total 0.7 mg/dl (0.2-1); Calcium 6.7 mg/dl (8.5-10.1); Creatinine Clr Calc Pharmacy 110.2 ml/min; Dohle Bodies 1+; Echinocytes 1+; Eosinophils # (auto) 0.02 K/uL (0-0.5); Eosinophils % (auto) 0.1 %; Est GFR (African American) 138.3; Est GFR (Non-African American) 119.3; Globulin 3.9 gm/dl (2.5-4.0); Immature Granulocytes # (auto) 0.14 K/uL (0.00-0.02); Immature Granulocytes % (auto) 0.8 %; Lymphocytes # (auto) 1.25 K/uL (1.2-3.4); Lymphocytes % (auto) 7.3 %; Magnesium 2.1 mg/dl (1.8-2.4); Monocytes # (auto) 1.37 K/uL (0.11-0.59); Neutrophils # (auto) 14.26 K/uL (1.4-6.5); Neutrophils % (auto) 83.7 %; Phosphorus 3.1 mg/dl (2.5-4.9); Platelet Count 121 K/uL (130-400); Platelet Estimate Decreased (Normal); Potassium 3.4 mmol/L (3.5-5.1); Total Protein 5.5 gm/dl (6.4-8.2)
[2020-01-04] MEDS ORDERED: VANCOMYCIN HCL 1,000 MG in SODIUM CHLORIDE 0.9% 250 ML IV SCH (06:00)
[2020-01-04] MEDS: POTASSIUM CHLORIDE / WTR 20 MEQ/100 ML PLCT IV SCH ×2 (06:15→08:13)
[2020-01-04] MEDS: SODIUM CHLORIDE 0.9% 1000ML 1,000 ML IV SCH ×2 (06:15→14:33)
[2020-01-04] MEDS ORDERED: buprenorphine HCL 2 MG SUBL SL ONE (06:16)
[2020-01-04] MEDS: VANCOMYCIN HCL 1,250 MG in SODIUM CHLORIDE 0.9% 250 ML IV SCH ×2 (06:17→17:54)
[2020-01-04] MEDS: PIPERACILLIN/TAZOBACTAM 3.375 GM in DEXTROSE 5% 100 ML IV SCH ×3 (06:17→22:34)
[2020-01-04] MEDS ORDERED: LORazepam 1 MG/2 ML VIAL IV PRN (07:24)
[2020-01-04] MEDS ORDERED: DICYCLOMINE HCL 10 MG CAP PO PRN (07:24)
[2020-01-04] MEDS: NYSTATIN SUSP 500,000 U/5 ML UDC PO SCH ×4 (08:04→21:13)
--- NOTE | 2020-01-04 08:24 | XRay Report ---
XR chest 1V portable CLINICAL HISTORY: Central line insertion COMPARISON STUDY: 01/03/2020 FINDINGS: The cardiac and mediastinal contours remain stable. There is been interval insertion of a r ight internal jugular central venous catheter. The tip projects over the superior vena cava. There is no pneumothorax. There are patchy bilateral pulmonary airspace opacities.[ IMPRESSION: 1. Bilateral pulmonary airspace opacities, minimally progressive when compared the prior study 2. No evidence of pneumothorax status post central venous catheter insertion. ACT 112: Negative or not required by law. Electronically signed by: Edi Elizondo M.D. 01/04/2020 8:23 AM
[2020-01-04] MEDS: METHADONE HCL 10 MG TAB PO PRN ×2 (09:14→15:03)
--- NOTE | 2020-01-04 09:18 | Critical Care Progress Note ---
Date of Service January 04, 2020 Assessment & Plan (1) Septic shock: Reason Critically Ill: 29-year-old female with history of IV drug abuse presents with septic shock presentation suspicious of endocarditis with showering emboli CT chest personally reviewed 01/03/2020: Diffuse peripheral groundglass opacities most are circular in shape with central cavitation and some of them. This likely represents septic emboli. One on the left side is very close to the pleura with central cavitation. Possibility of bronchopleural fistula and pneumothorax is high on the left side. Neuro - [facility] ICU: Negative IV drug abusepatient claims to have been on Suboxone but ran out of medications and turned back to IV heroin -UDS positive for opioids and methamphetamine, final pending -HIV pending, hepatitis profile negative -Acetaminophen and salicylates negative -Consider psych evaluation once stable Cardiac - Shocklikely septic in origin, especially with history of IV drug abuse and high probability for endocarditis -Initially resuscitated with 3 L crystalloid, levo fed drip -CVC inserted, titrate drip for maps greater than 65 -Random cortisol 45, no indication for hydrocortisone at this time -CT chest: Negative for PE, multifocal nodular peripheral airspace opacities several which appear to demonstrate early cavitation. Suspicious for septic emboli and infectious etiology -Likely patient has developed endocarditis and showering septic emboli -TTE pending -Continue broad-spectrum antibiotics with MRSA coverage as discussed below -Continue monitor on telemetry in ICU Respiratory - Currently maintaining sats on room air, no labored breathing or respiratory distress -CT as above, continue broad-spectrum antibiotic Continuous monitoring on pulse ox -Patient high risk for decompensation and need for intubation, monitor closely in ICU GI - Hepatosplenomegalynoted on CT and palpable liver on exam -Hepatitis panel pending -Mildly elevated LFTs, INR elevated -Patient may have shock liver in the setting of hypotension, trend LFTs RENAL/LYTES - Creatinine within normal limits, monitor electrolytes with routine BMPs and replete as indicated Continue IV fluid resuscitation - Foleystrict I's and O's ENDO - No history of diabetes thyroid disease ICU hyperglycemic protocol HEME - Thrombocytopeniamultiple potential etiologies including sepsis, liver dysfunction, splenomegaly -No signs of bleeding, monitor for now with routine CBCs ID - Sepsispatient presents with fevers, elevated lactate, and elevated procalcitonin in the setting of hypotension -CTA chest consistent with infectious process suspicious for septic emboli, presentation consistent with endocarditis considering IV drug abuse -COVID-19 PCR negative -MRSA positive -UA positive -Blood cultures positive for gram-positive cocci in clusters, urine culture pending -Continue vancomycin and cefepime; wean with culture results LINES/IV ACCESS - CVC right IJ, PIV's DVT PROPHYLAXIS - SCDs Plan: In/out: Positive 4170, urine output 1250 Patient likely has bacteremia with endocarditis and septic emboli to the lung. Patient has no murmur on physical exam but highly suspicion for right-sided endocarditis given septic emboli in the lungs. Continue with antibiotics to cover for MRSA. Continue with Levophed to titrate map of 65. DC doxycycline. Patient also is high risk for spontaneous pneumothorax on the left side of 1 of the cavitary lesion opens into the pleura. Monitor very severe chest pain on the left side with desaturations. Patient is an active withdrawal from opioid. On asking she does 10 bags of heroin on a daily basis IV. We will start the patient on symptomatic therapy with dicyclomine, clonidine, lorazepam as needed. If she still complaining of severe pain we will start the patient on methadone 10 mg every 6 hours for pain. Patient's QTC was 416 Follow-up 2D echo I have personally spent 37 minutes of critical care time in the direct management of this patient. This is a life/limb threatening event. This includes time spent evaluating patient, direct bedside care, chart review, placing orders, interpretation of diagnostic studies, discussion with consultants, patient, and family members, as well as other required patient management activities. This time is exclusive of all separately billable procedures, and teaching time and separate from and in addition to any other critical care service time. Please note the above document was generated using voice recognition software. It may contain grammatical, syntax or spelling errors. (2) Hepatosplenomegaly: (3) Thrombocytopenia: (4) Abnormal LFTs: (5) Atypical pneumonia: (6) Drug abuse, IV: Admission and Anticipated Discharge Date Admission Date: January 03, 2020 Subjective Patient seen and examined at bedside. In distress complaining of pain. On asking what is the pain she says the pain is all over especially in her hand and legs. She has dilated pupil, complaining of dry mouth as well as abdominal cramps. Denies any dizziness, no headache, no nausea or vomiting. Afebrile since coming to the ICU On Levophed 0.05 Review of Systems Review of Systems: All systems reviewed & are unremarkable except as noted in Subjective Physical Exam Physical Exam: Constitutional: In distress complaining of pain HEENT: EOMI, PERRLA, dilated pupils Respiratory system: Good air entry bilaterally, no wheeze, no rhonchi, positive minimal crackles bilaterally CVS: S1-S2 positive, no murmurs or gallops Abdomen: Soft, nontender, nondistended, positive bowel sounds x4 Extremities: +1 pulses bilaterally radialis/ dorsalis pedis, no cyanosis, no edema, Osler nodes appreciated in bilateral palmar surfaces Neuro: Awake alert oriented x3 Psych: Normal mood and affect G/U: Positive [place] Skin: no rashes, warm and dry Lymphatic: no cervical or axillary lymphadenopathy Results & Data Results & Data ([facility]) Vital Signs (Past 12 Hours) Vital Signs Temp Pulse Pulse Resp BP BP Pulse Ox 01/04/20 08:30 37.3 C 104 H 13 95 01/04/20 08:00 37.2 C 75 17 95 01/04/20 07:51 37.2 C 74 17 105/75 92 01/04/20 07:36 37.1 C 96 H 19 97/54 L 97 01/04/20 07:30 37.1 C 76 25 H 98 01/04/20 07:00 36.4 C L 85 18 94 01/04/20 06:37 36.5 C 60 10 L 99 01/04/20 06:36 36.4 C L 72 14 89/56 L 96 01/04/20 05:35 36.7 C 64 21 104/69 99 01/04/20 04:36 36.4 C L 61 10 L 89/51 L 98 01/04/20 03:36 36.1 C L 69 16 93/48 L 100 01/04/20 02:43 36.0 C L 73 24 105/73 99 01/04/20 01:36 36.5 C 93 H 15 106/71 97 01/03/20 23:35 36.7 C 75 28 H 105/71 99 01/03/20 22:35 36.7 C 77 23 107/73 98 01/03/20 21:36 36.6 C 71 23 97/61 L 100 01/03/20 21:35 95 H 25 H 97/61 L 01/03/20 21:05 89 20 96/59 L 96 01/04/20 04:31 01/04/20 04:31 Microbiology 01/03/20 16:35 Blood Aerobic Blood Culture - Preliminary Gram positive cocci clusters 01/03/20 16:35 Blood Anaerobic Blood Culture - Preliminary Gram positive cocci clusters 01/03/20 16:57 Blood Aerobic Blood Culture - Preliminary Gram positive cocci clusters 01/03/20 16:57 Blood Anaerobic Blood Culture - Preliminary Gram positive cocci clusters Coding Level of Care Code 41155 Subseq Hosp Care Lvl 1 Diagnoses Septic shock A41.9; R65.21 Hepatosplenomegaly R16.2 Thrombocytopenia D69.6 Abnormal LFTs R94.5 Atypical pneumonia J18.9 Drug abuse, IV F19.10 Time Spent (min) 37
[2020-01-04] MEDS ORDERED: Nursing to Pharmacy Communication SCH ×2 (10:45→13:15)
[2020-01-04] MEDS ORDERED: GABAPENTIN 100 MG CAP PO ONE (11:00)
[2020-01-04] MEDS: PANTOprazole 40 MG in SYRINGE 0 ML IV SCH (11:10)
[2020-01-04] MEDS ORDERED: GABAPENTIN 100 MG CAP PO PRN (13:13)
[2020-01-04] MEDS: LORazepam 1 MG/2 ML VIAL IV PRN ×2 (14:33→20:42)
--- NOTE | 2020-01-04 16:53 | Hospitalist Progress Note ---
Date of Service January 04, 2020 Assessment & Plan (1) Drug abuse, IV: 29-year-old female with history of prior Suboxone use and IV drug use with heroin presents with 2 weeks of fevers, chills, myalgias, hand and foot pain found to be in septic shock likely secondary to endocarditis with showering emboli. Septic shock -pressures remain soft requiring nor-epi -IVF NSS@75 mls/hr -painful lesions on her hands/feet are highly suspicious for Osler's nodes from acute infectious endocarditis -CTA chest consistent with infectious process suspicious for septic emboli -Echocardiogram: There is a visualized small mobile vegetation 2-3 mm at the junction of the chordal structure and the anterior mitral valve leaflet. Focal thickening of the anterior leaflet tip may represent infectious process as well. The mitral valve is competent. There is no visualized perivalvular abscess. Trace mitral regurgitation. Tricuspid valve leaflet edges appear thickened in the apical four-chamber and subcostal views. Distinct vegetation not identified but not excluded by current study. There is mild to moderate tricuspid regurgitation. -Blood cultures growing gram-positive cocci in clusters preliminary -IV antibiotics - zosyn, vancomycin. Discontinue doxy -Nasal MRSA screen positive -COVID negative IV Drug abuse Patient states that she was on Suboxone previously but ran out and thus turned to IV heroin Methadone 10 mg every 6 hours as needed -HIV testing negative -Hep B antigen negative, hep B IgM pending . Hep C antibody negative -Blood cultures for concern of endocarditis -Tox screen : Positive for opioids and methamphetamine. Finalization pending -Will need social work assistance, psych services, drug/alcohol rehab, etc following this admission. Appreciate CM assistance Coagulopathy -Likely early DIC from septic shock - fibrinogen 434, d-dimer 3110, FDP 10-40 oh elevated Elevated liver enzymes-mild In setting of hypotension may have shock liver We will trend daily Thrombocytopenia -Differential - DIC / sepsis vs liver dysfunction/splenomegaly vs nutritional deficiency vs combination of factors -Trend Daily CBC FEN/GI: NSS@75 DVT prophylaxis: SCDs Full code Dispo: Remains in ICU Admission and Anticipated Discharge Date Admission Date: January 03, 2020 Supervising Physician Co-Signing Physician Notes I saw the patient with the resident physician and confirmed laura portions of the history and physical examination. I agree with the impression and plan as noted in the resident documentation. At this time the patient remains under primary care of the critical care team in the ICU. A transthoracic echocardiogram demonstrates vegetations on the mitral valve, and there are findings suggestive on the tricuspid valve (although distinct vegetation could not be excluded), and mild to moderate tricuspid regurgitation. These findings were not surprising in the presence of her clinical history, leukocytosis, positive blood culture MRSA PCR, marked ESR elevation, and physical exam findings of Osler nodes. We will continue to follow for continuity of care pending improvement and transfer out of the ICU. Subjective Patient found in bed this a.m. Notes ongoing pain everywhere felt most in lower extremities. Patient n.p.o.. Denies any nausea vomiting. Some abdominal cramping. Patient with no other acute concerns or complaints. Review of Systems Review of Systems: All systems reviewed & are unremarkable except as noted in HPI & below Physical Exam Constitutional: + acute distress Eyes: PERRL and + dilated pupils ENMT: external ear and nose normal, oropharynx normal Respiratory: normal respiratory effort; no respiratory distress Au scultation: + crackles (Bilateral bases) Cardiovascular: RRR, no murmur, no edema Gastrointestinal (Abdomen): normal bowel sounds, soft, nontender, no hepatosplenomegaly Skin: Osler nodes noted bilateral palms of hands and soles of feet right >left Psychiatric: A+Ox3, euthymic affect Genitourinary: [place] in place Results & Data Results & Data ([facility]) Vital Signs (Past 12 Hours) Vital Signs Temp Pulse Resp BP Pulse Ox 01/04/20 12:35 37.6 C H 83 22 97/64 L 100 01/04/20 12:30 37.6 C H 92 H 23 96 01/04/20 12:00 37.5 C 113 H 22 97 01/04/20 11:35 37.4 C 74 26 H 93/58 L 97 01/04/20 11:30 37.4 C 67 33 H 96 01/04/20 11:00 37.5 C 71 30 H 98 01/04/20 10:35 37.6 C H 108 H 12 84/66 L 96 01/04/20 10:30 37.6 C H 111 H 29 H 95 01/04/20 10:24 37.6 C H 83 21 105/65 96 01/04/20 10:00 37.4 C 87 22 95 01/04/20 09:30 37.4 C 114 H 18 08/16/20 09:00 37.4 C 124 H 15 95 01/04/20 08:30 37.3 C 104 H 13 95 01/04/20 08:00 37.2 C 75 17 95 01/04/20 07:51 37.2 C 74 17 105/75 92 01/04/20 07:36 37.1 C 96 H 19 97/54 L 97 01/04/20 07:30 37.1 C 76 25 H 98 01/04/20 07:00 36.4 C L 85 18 94 01/04/20 06:37 36.5 C 60 10 L 99 01/04/20 06:36 36.4 C L 72 14 89/56 L 96 01/04/20 05:35 36.7 C 64 21 104/69 99 Laboratory Results Laboratory Results - last 24 hr 01/03/20 01/03/20 01/03/20 16:35 16:35 16:35 WBC 8.65 RBC 4.62 Hgb 12.7 Hct 36.1 L MCV 78.1 L MCH 27.5 MCHC 35.2 RDW Std Deviation 44.8 RDW Coeff of Liliya 15.7 H Plt Count 107 L Immature Gran % (Auto) 0.8 Neut % (Auto) 92.8 Lymph % (Auto) 4.2 [place] % (Auto) 2.0 Eos % (Auto) 0.1 Baso % (Auto) 0.1 Neut # (Auto) 8.03 H Lymph # (Auto) 0.36 L [place] # (Auto) 0.17 Eos # (Auto) 0.01 Baso # (Auto) 0.01 Immature Gran # (Auto) 0.07 H Toxic Granulation 1+ Toxic Vacuolation 1+ Dohle Bodies 1+ Platelet Estimate Decreased L Echinocytes 1+ ESR PT INR APTT PTT Ratio Fibrinogen Fibrin Degrad Products D-Dimer Sodium 131 L Potassium 3.2 L Chloride 94 L Carbon Dioxide 27 Anion Gap 10.0 BUN 19 H Creatinine 1.12 Est Cr Clr Drug Dosing 67.9 Est GFR ( Amer) 78.0 Est GFR (Non-Af Amer) 67.3 BUN/Creatinine Ratio 16.6 Glucose 95 POC Glucose Lactate 3.4 H* Calcium 8.3 L Phosphorus Magnesium 2.0 Total Bilirubin 1.4 H Direct Bilirubin AST 63 H ALT 58 Alkaline Phosphatase 220 H Troponin I < 0.015 C-Reactive Protein 21.30 H Total Protein 7.5 Albumin 2.3 L Globulin 5.2 H Albumin/Globulin Ratio 0.4 L Procalcitonin TSH 1.640 HCG, Qual Random Cortisol Urine Color Urine Appearance Urine pH Ur Specific [place] Urine Protein Urine Glucose (UA) Urine Ketones Urine Blood Urine Nitrite Urine Bilirubin Urine Urobilinogen Ur Leukocyte Esterase Urine RBC Urine WBC Ur Epithelial Cells Urine Bacteria Urine Trichomonas Nasal Screen MRSA (PCR) Salicylates Urine Opiates Screen U Codeine Confrm GC/MS Ur Morphine (GC/MS) Ur Hydrocodone (GC/MS) Ur Norhydrocodone Ur Noroxycodone Urine Oxycodone (GC/MS) U Oxymorphone GC/MS Ur Methadone, Qual Ur Hydromorphone (GC/MS) Acetaminophen Urine Barbiturates Ur Phencyclidine (PCP) U Amphetamines Confirm U Amphetamin/Meth Scrn U Methamphetamin Confrm MDMA (Ecstasy) Screen U Benzodiazepines Scrn Ur Cocaine Metabolite U Marijuana (THC) Screen Drug Screen Comment COVID-19 Eval Order COVID-19 PCR Hepatitis A IgM Ab Hep Bs Antigen Hep B Core IgM Ab Hepatitis C Antibody HIV 1&2 Ab/P24 Ag 4thGn Bld Cult Staph aureus PCR Blood Culture MRSA PCR 01/03/20 01/03/20 01/03/20 16:35 16:35 16:35 WBC RBC Hgb Hct MCV MCH MCHC RDW Std Deviation RDW Coeff of Liliya Plt Count Immature Gran % (Auto) Neut % (Auto) Lymph % (Auto) [place] % (Auto) Eos % (Auto) Baso % (Auto) Neut # (Auto) Lymph # (Auto) [place] # (Auto) Eos # (Auto) Baso # (Auto) Immature Gran # (Auto) Toxic Granulation Toxic Vacuolation Dohle Bodies Platelet Estimate Echinocytes ESR 73 H PT 14.6 H INR 1.4 H APTT 33.6 H PTT Ratio 1.2 Fibrinogen Fibrin Degrad Products D-Dimer Sodium Potassium Chloride Carbon Dioxide Anion Gap BUN Creatinine Est Cr Clr Drug Dosing Est GFR ( Amer) Est GFR (Non-Af Amer) BUN/Creatinine Ratio Glucose POC Glucose Lactate Calcium Phosphorus Magnesium Total Bilirubin Direct Bilirubin AST ALT Alkaline Phosphatase Troponin I C-Reactive Protein Total Protein Albumin Globulin Albumin/Globulin Ratio Procalcitonin TSH HCG, Qual Negative Random Cortisol Urine Color Urine Appearance Urine pH Ur Specific [place] Urine Protein Urine Glucose (UA) Urine Ketones Urine Blood Urine Nitrite Urine Bilirubin Urine Urobilinogen Ur Leukocyte Esterase Urine RBC Urine WBC Ur Epithelial Cells Urine Bacteria Urine Trichomonas Nasal Screen MRSA (PCR) Salicylates Urine Opiates Screen U Codeine Confrm GC/MS Ur Morphine (GC/MS) Ur Hydrocodone (GC/MS) Ur Norhydrocodone Ur Noroxycodone Urine Oxycodone (GC/MS) U Oxymorphone GC/MS Ur Methadone, Qual Ur Hydromorphone (GC/MS) Acetaminophen Urine Barbiturates Ur Phencyclidine (PCP) U Amphetamines Confirm U Amphetamin/Meth Scrn U Methamphetamin Confrm MDMA (Ecstasy) Screen U Benzodiazepines Scrn Ur Cocaine Metabolite U Marijuana (THC) Screen Drug Screen Comment COVID-19 Eval Order COVID-19 PCR Hepatitis A IgM Ab Hep Bs Antigen Hep B Core IgM Ab Hepatitis C Antibody HIV 1&2 Ab/P24 Ag 4thGn Bld Cult Staph aureus PCR Blood Culture MRSA PCR 01/03/20 01/03/20 01/03/20 16:35 16:35 19:41 WBC RBC Hgb Hct MCV MCH MCHC RDW Std Deviation RDW Coeff of Liliya Plt Count Immature Gran % (Auto) Neut % (Auto) Lymph % (Auto) [place] % (Auto) Eos % (Auto) Baso % (Auto) Neut # (Auto) Lymph # (Auto) [place] # (Auto) Eos # (Auto) Baso # (Auto) Immature Gran # (Auto) Toxic Granulation Toxic Vacuolation Dohle Bodies Platelet Estimate Echinocytes ESR PT INR APTT PTT Ratio Fibrinogen Fibrin Degrad Products D-Dimer Sodium Potassium Chloride Carbon Dioxide Anion Gap BUN Creatinine Est Cr Clr Drug Dosing Est GFR ( Amer) Est GFR (Non-Af Amer) BUN/Creatinine Ratio Glucose POC Glucose Lactate Calcium Phosphorus Magnesium Total Bilirubin Direct Bilirubin AST ALT Alkaline Phosphatase Troponin I C-Reactive Protein Total Protein Albumin Globulin Albumin/Globulin Ratio Procalcitonin 2.38 H TSH HCG, Qual Random Cortisol Urine Color Urine Appearance Urine pH Ur Specific [place] Urine Protein Urine Glucose (UA) Urine Ketones Urine Blood Urine Nitrite Urine Bilirubin Urine Urobilinogen Ur Leukocyte Esterase Urine RBC Urine WBC Ur Epithelial Cells Urine Bacteria Urine Trichomonas Nasal Screen MRSA (PCR) Salicylates < 1.7 L Urine Opiates Screen U Codeine Confrm GC/MS Ur Morphine (GC/MS) Ur Hydrocodone (GC/MS) Ur Norhydrocodone Ur Noroxycodone Urine Oxycodone (GC/MS) U Oxymorphone GC/MS Ur Methadone, Qual Ur Hydromorphone (GC/MS) Acetaminophen 6 L Urine Barbiturates Ur Phencyclidine (PCP) U Amphetamines Confirm U Amphetamin/Meth Scrn U Methamphetamin Confrm MDMA (Ecstasy) Screen U Benzodiazepines Scrn Ur Cocaine Metabolite U Marijuana (THC) Screen Drug Screen Comment COVID-19 Eval Order COVID-19 PCR Hepatitis A IgM Ab Hep Bs Antigen Hep B Core IgM Ab Hepatitis C Antibody HIV 1&2 Ab/P24 Ag 4thGn Bld Cult Staph aureus PCR Positive A Blood Culture MRSA PCR Positive A* 01/03/20 01/03/20 01/03/20 19:41 19:41 19:41 WBC RBC Hgb Hct MCV MCH MCHC RDW Std Deviation RDW Coeff of Liliya Plt Count Immature Gran % (Auto) Neut % (Auto) Lymph % (Auto) [place] % (Auto) Eos % (Auto) Baso % (Auto) Neut # (Auto) Lymph # (Auto) [place] # (Auto) Eos # (Auto) Baso # (Auto) Immature Gran # (Auto) Toxic Granulation Toxic Vacuolation Dohle Bodies Platelet Estimate Echinocytes ESR PT INR APTT PTT Ratio Fibrinogen Fibrin Degrad Products D-Dimer Sodium Potassium Chloride Carbon Dioxide Anion Gap BUN Creatinine Est Cr Clr Drug Dosing Est GFR ( Amer) Est GFR (Non-Af Amer) BUN/Creatinine Ratio Glucose POC Glucose Lactate Calcium Phosphorus Magnesium Total Bilirubin Direct Bilirubin AST ALT Alkaline Phosphatase Troponin I C-Reactive Protein Total Protein Albumin Globulin Albumin/Globulin Ratio Procalcitonin TSH HCG, Qual Random Cortisol 41.64 Urine Color Urine Appearance Urine pH Ur Specific [place] Urine Protein Urine Glucose (UA) Urine Ketones Urine Blood Urine Nitrite Urine Bilirubin Urine Urobilinogen Ur Leukocyte Esterase Urine RBC Urine WBC Ur Epithelial Cells Urine Bacteria Urine Trichomonas Nasal Screen MRSA (PCR) Salicylates Urine Opiates Screen U Codeine Confrm GC/MS Ur Morphine (GC/MS) Ur Hydrocodone (GC/MS) Ur Norhydrocodone Ur Noroxycodone Urine Oxycodone (GC/MS) U Oxymorphone GC/MS Ur Methadone, Qual Ur Hydromorphone (GC/MS) Acetaminophen Urine Barbiturates Ur Phencyclidine (PCP) U Amphetamines Confirm U Amphetamin/Meth Scrn U Methamphetamin Confrm MDMA (Ecstasy) Screen U Benzodiazepines Scrn Ur Cocaine Metabolite U Marijuana (THC) Screen Drug Screen Comment COVID-19 Eval Order COVID-19 PCR Hepatitis A IgM Ab Pending Hep Bs Antigen Neg Hep B Core IgM Ab Pending Hepatitis C Antibody Neg HIV 1&2 Ab/P24 Ag 4thGn Bld Cult Staph aureus PCR Blood Culture MRSA PCR 01/03/20 01/03/20 01/03/20 20:15 20:15 20:15 WBC RBC Hgb Hct MCV MCH MCHC RDW Std Deviation RDW Coeff of Liliya Plt Count Immature Gran % (Auto) Neut % (Auto) Lymph % (Auto) [place] % (Auto) Eos % (Auto) Baso % (Auto) Neut # (Auto) Lymph # (Auto) [place] # (Auto) Eos # (Auto) Baso # (Auto) Immature Gran # (Auto) Toxic Granulation Toxic Vacuolation Dohle Bodies Platelet Estimate Echinocytes ESR PT INR APTT PTT Ratio Fibrinogen Fibrin Degrad Products D-Dimer Sodium Potassium Chloride Carbon Dioxide Anion Gap BUN Creatinine Est Cr Clr Drug Dosing Est GFR ( Amer) Est GFR (Non-Af Amer) BUN/Creatinine Ratio Glucose POC Glucose Lactate Calcium Phosphorus Magnesium Total Bilirubin Direct Bilirubin AST ALT Alkaline Phosphatase Troponin I C-Reactive Protein Total Protein Albumin Globulin Albumin/Globulin Ratio Procalcitonin TSH HCG, Qual Random Cortisol Urine Color Yellow Urine Appearance Slightly Cloudy Urine pH 6.5 Ur Specific [place] <= 1.005 Urine Protein Negative Urine Glucose (UA) Negative Urine Ketones Negative Urine Blood Trace H Urine Nitrite Negative Urine Bilirubin Negative Urine Urobilinogen Negative Ur Leukocyte Esterase 2+ H Urine RBC 0-4 Urine WBC >30 H Ur Epithelial Cells >30 H Urine Bacteria 2+ H Urine Trichomonas Present H Nasal Screen MRSA (PCR) Salicylates Urine Opiates Screen Pos H U Codeine Confrm GC/MS Pending Ur Morphine (GC/MS) Pending Ur Hydrocodone (GC/MS) Pending Ur Norhydrocodone Pending Ur Noroxycodone Pending Urine Oxycodone (GC/MS) Pending U Oxymorphone GC/MS Pending Ur Methadone, Qual Neg Ur Hydromorphone (GC/MS) Pending Acetaminophen Urine Barbiturates Neg Ur Phencyclidine (PCP) Neg U Amphetamines Confirm Pending U Amphetamin/Meth Scrn Pos H U Methamphetamin Confrm Pending MDMA (Ecstasy) Screen Neg U Benzodiazepines Scrn Neg Ur Cocaine Metabolite Neg U Marijuana (THC) Screen Neg Drug Screen Comment Pending COVID-19 Eval Order COVID-19 PCR Hepatitis A IgM Ab Hep Bs Antigen Hep B Core IgM Ab Hepatitis C Antibody HIV 1&2 Ab/P24 Ag 4thGn Bld Cult Staph aureus PCR Blood Culture MRSA PCR 01/03/20 01/03/20 01/03/20 21:01 22:00 22:00 WBC RBC Hgb Hct MCV MCH MCHC RDW Std Deviation RDW Coeff of Liliya Plt Count Immature Gran % (Auto) Neut % (Auto) Lymph % (Auto) [place] % (Auto) Eos % (Auto) Baso % (Auto) Neut # (Auto) Lymph # (Auto) [place] # (Auto) Eos # (Auto) Baso # (Auto) Immature Gran # (Auto) Toxic Granulation Toxic Vacuolation Dohle Bodies Platelet Estimate Echinocytes ESR PT INR APTT PTT Ratio Fibrinogen Fibrin Degrad Products D-Dimer Sodium Potassium Chloride Carbon Dioxide Anion Gap BUN Creatinine Est Cr Clr Drug Dosing Est GFR ( Amer) Est GFR (Non-Af Amer) BUN/Creatinine Ratio Glucose POC Glucose Lactate 1.5 Calcium Phosphorus Magnesium Total Bilirubin Direct Bilirubin AST ALT Alkaline Phosphatase Troponin I C-Reactive Protein Total Protein Albumin Globulin Albumin/Globulin Ratio Procalcitonin TSH HCG, Qual Random Cortisol Urine Color Urine Appearance Urine pH Ur Specific [place] Urine Protein Urine Glucose (UA) Urine Ketones Urine Blood Urine Nitrite Urine Bilirubin Urine Urobilinogen Ur Leukocyte Esterase Urine RBC Urine WBC Ur Epithelial Cells Urine Bacteria Urine Trichomonas Nasal Screen MRSA (PCR) Positive A Salicylates Urine Opiates Screen U Codeine Confrm GC/MS Ur Morphine (GC/MS) Ur Hydrocodone (GC/MS) Ur Norhydrocodone Ur Noroxycodone Urine Oxycodone (GC/MS) U Oxymorphone GC/MS Ur Methadone, Qual Ur Hydromorphone (GC/MS) Acetaminophen Urine Barbiturates Ur Phencyclidine (PCP) U Amphetamines Confirm U Amphetamin/Meth Scrn U Methamphetamin Confrm MDMA (Ecstasy) Screen U Benzodiazepines Scrn Ur Cocaine Metabolite U Marijuana (THC) Screen Drug Screen Comment COVID-19 Eval Order Covid19 Done at [facility] COVID-19 PCR Hepatitis A IgM Ab Hep Bs Antigen Hep B Core IgM Ab Hepatitis C Antibody HIV 1&2 Ab/P24 Ag 4thGn Bld Cult Staph aureus PCR Blood Culture MRSA PCR 01/03/20 01/03/20 01/03/20 22:00 22:59 22:59 WBC RBC Hgb Hct MCV MCH MCHC RDW Std Deviation RDW Coeff of Liliya Plt Count Immature Gran % (Auto) Neut % (Auto) Lymph % (Auto) [place] % (Auto) Eos % (Auto) Baso % (Auto) Neut # (Auto) Lymph # (Auto) [place] # (Auto) Eos # (Auto) Baso # (Auto) Immature Gran # (Auto) Toxic Granulation Toxic Vacuolation Dohle Bodies Platelet Estimate Echinocytes ESR PT INR APTT PTT Ratio Fibrinogen Cancelled Fibrin Degrad Products 10-40 H D-Dimer 3110 H* Sodium Potassium Chloride Carbon Dioxide Anion Gap BUN Creatinine Est Cr Clr Drug Dosing Est GFR ( Amer) Est GFR (Non-Af Amer) BUN/Creatinine Ratio Glucose POC Glucose Lactate Calcium Phosphorus Magnesium Total Bilirubin Direct Bilirubin AST ALT Alkaline Phosphatase Troponin I C-Reactive Protein Total Protein Albumin Globulin Albumin/Globulin Ratio Procalcitonin TSH HCG, Qual Random Cortisol Urine Color Urine Appearance Urine pH Ur Specific [place] Urine Protein Urine Glucose (UA) Urine Ketones Urine Blood Urine Nitrite Urine Bilirubin Urine Urobilinogen Ur Leukocyte Esterase Urine RBC Urine WBC Ur Epithelial Cells Urine Bacteria Urine Trichomonas Nasal Screen MRSA (PCR) Salicylates Urine Opiates Screen U Codeine Confrm GC/MS Ur Morphine (GC/MS) Ur Hydrocodone (GC/MS) Ur Norhydrocodone Ur Noroxycodone Urine Oxycodone (GC/MS) U Oxymorphone GC/MS Ur Methadone, Qual Ur Hydromorphone (GC/MS) Acetaminophen Urine Barbiturates Ur Phencyclidine (PCP) U Amphetamines Confirm U Amphetamin/Meth Scrn U Methamphetamin Confrm MDMA (Ecstasy) Screen U Benzodiazepines Scrn Ur Cocaine Metabolite U Marijuana (THC) Screen Drug Screen Comment COVID-19 Eval Order COVID-19 PCR NEGATIVE Hepatitis A IgM Ab Hep Bs Antigen Hep B Core IgM Ab Hepatitis C Antibody HIV 1&2 Ab/P24 Ag 4thGn Bld Cult Staph aureus PCR Blood Culture MRSA PCR 01/03/20 01/04/20 01/04/20 22:59 04:31 04:31 WBC 17.05 H RBC 4.08 L Hgb 11.0 L Hct 31.8 L MCV 77.9 L MCH 27.0 MCHC 34.6 RDW Std Deviation 44.9 RDW Coeff of Liliya 15.7 H Plt Count 121 L Immature Gran % (Auto) 0.8 Neut % (Auto) 83.7 Lymph % (Auto) 7.3 [place] % (Auto) 8.0 Eos % (Auto) 0.1 Baso % (Auto) 0.1 Neut # (Auto) 14.26 H Lymph # (Auto) 1.25 [place] # (Auto) 1.37 H Eos # (Auto) 0.02 Baso # (Auto) 0.01 Immature Gran # (Auto) 0.14 H Toxic Granulation Toxic Vacuolation Dohle Bodies 1+ Platelet Estimate Decreased L Echinocytes 1+ ESR PT 14.6 H INR 1.4 H APTT PTT Ratio Fibrinogen 434 H Fibrin Degrad Products D-Dimer Sodium Potassium Chloride Carbon Dioxide Anion Gap BUN Creatinine Est Cr Clr Drug Dosing Est GFR ( Amer) Est GFR (Non-Af Amer) BUN/Creatinine Ratio Glucose POC Glucose Lactate Calcium Phosphorus Magnesium Total Bilirubin Direct Bilirubin AST ALT Alkaline Phosphatase Troponin I C-Reactive Protein Total Protein Albumin Globulin Albumin/Globulin Ratio Procalcitonin TSH HCG, Qual Random Cortisol Urine Color Urine Appearance Urine pH Ur Specific [place] Urine Protein Urine Glucose (UA) Urine Ketones Urine Blood Urine Nitrite Urine Bilirubin Urine Urobilinogen Ur Leukocyte Esterase Urine RBC Urine WBC Ur Epithelial Cells Urine Bacteria Urine Trichomonas Nasal Screen MRSA (PCR) Salicylates Urine Opiates Screen U Codeine Confrm GC/MS Ur Morphine (GC/MS) Ur Hydrocodone (GC/MS) Ur Norhydrocodone Ur Noroxycodone Urine Oxycodone (GC/MS) U Oxymorphone GC/MS Ur Methadone, Qual Ur Hydromorphone (GC/MS) Acetaminophen Urine Barbiturates Ur Phencyclidine (PCP) U Amphetamines Confirm U Amphetamin/Meth Scrn U Methamphetamin Confrm MDMA (Ecstasy) Screen U Benzodiazepines Scrn Ur Cocaine Metabolite U Marijuana (THC) Screen Drug Screen Comment COVID-19 Eval Order COVID-19 PCR Hepatitis A IgM Ab Hep Bs Antigen Hep B Core IgM Ab Hepatitis C Antibody HIV 1&2 Ab/P24 Ag 4thGn Bld Cult Staph aureus PCR Blood Culture MRSA PCR 01/04/20 01/04/20 01/04/20 04:31 04:31 11:14 WBC RBC Hgb Hct MCV MCH MCHC RDW Std Deviation RDW Coeff of Liliya Plt Count Immature Gran % (Auto) Neut % (Auto) Lymph % (Auto) [place] % (Auto) Eos % (Auto) Baso % (Auto) Neut # (Auto) Lymph # (Auto) [place] # (Auto) Eos # (Auto) Baso # (Auto) Immature Gran # (Auto) Toxic Granulation Toxic Vacuolation Dohle Bodies Platelet Estimate Echinocytes ESR PT INR APTT PTT Ratio Fibrinogen Fibrin Degrad Products D-Dimer Sodium 143 D Potassium 3.4 L Chloride 115 H Carbon Dioxide 22 Anion Gap 6.0 BUN 18 Creatinine 0.69 D Est Cr Clr Drug Dosing 110.2 Est GFR ( Amer) 138.3 Est GFR (Non-Af Amer) 119.3 BUN/Creatinine Ratio 26.0 H Glucose 101 H POC Glucose 92 Lactate Calcium 6.7 L D Phosphorus 3.1 Magnesium 2.1 Total Bilirubin 0.7 D Direct Bilirubin 0.3 H AST 70 H ALT 55 Alkaline Phosphatase 111 Troponin I C-Reactive Protein Total Protein 5.5 L D Albumin 1.6 L Globulin 3.9 Albumin/Globulin Ratio 0.4 L Procalcitonin TSH HCG, Qual Random Cortisol Urine Color Urine Appearance Urine pH Ur Specific [place] Urine Protein Urine Glucose (UA) Urine Ketones Urine Blood Urine Nitrite Urine Bilirubin Urine Urobilinogen Ur Leukocyte Esterase Urine RBC Urine WBC Ur Epithelial Cells Urine Bacteria Urine Trichomonas Nasal Screen MRSA (PCR) Salicylates Urine Opiates Screen U Codeine Confrm GC/MS Ur Morphine (GC/MS) Ur Hydrocodone (GC/MS) Ur Norhydrocodone Ur Noroxycodone Urine Oxycodone (GC/MS) U Oxymorphone GC/MS Ur Methadone, Qual Ur Hydromorphone (GC/MS) Acetaminophen Urine Barbiturates Ur Phencyclidine (PCP) U Amphetamines Confirm U Amphetamin/Meth Scrn U Methamphetamin Confrm MDMA (Ecstasy) Screen U Benzodiazepines Scrn Ur Cocaine Metabolite U Marijuana (THC) Screen Drug Screen Comment COVID-19 Eval Order COVID-19 PCR Hepatitis A IgM Ab Hep Bs Antigen Hep B Core IgM Ab Hepatitis C Antibody HIV 1&2 Ab/P24 Ag 4thGn Neg Bld Cult Staph aureus PCR Blood Culture MRSA PCR Medications Administered Current Inpatient Medications Dicyclomine HCl (Dicyclomine Hcl 10 Mg Cap) 10 mg PO Q6H PRN PRN Reason: Cramps Stop: 02/03/20 07:23 Last Admin: 01/04/20 07:56 Dose: 10 mg Documented by: Gabapentin (Gabapentin 100 Mg Cap) 200 mg PO Q6H PRN PRN Reason: WITHDRAWAL SYMPTOMS Stop: 02/03/20 13:12 Norepinephrine Bitartrate 8 mg (/ Dextrose) 508 mls @ 7.041 mls/hr IV .Q24H [place]; Protocol Stop: 02/02/20 19:14 Last Titration: 01/04/20 16:03 Dose: 0.03 mcg/kg/min, 7 mls/hr Documented by: Pantoprazole Sodium 40 mg/ (Syringe) 10 mls @ 5 mls/min IV DAILY@1100 [place] Stop: 01/07/20 11:01 Last Admin: 01/04/20 11:10 Dose: 5 mls/min Documented by: Piperacillin Sod/Tazobactam (Sod 3.375 gm/ Dextrose) 115 mls @ 28.75 mls/hr IV Q8H [place]; Protocol Stop: 01/10/20 21:59 Last Admin: 01/04/20 13:45 Dose: 28.8 mls/hr Documented by: Vancomycin HCl 1,250 mg/ (Sodium Chloride) 275 mls @ 125 mls/hr IV Q12H [place]; Protocol Stop: 01/06/20 05:59 Last Infusion: 01/04/20 08:40 Dose: Infused Documented by: Sodium Chloride (Nss 1000ml) 1,000 mls @ 75 mls/hr IV .[id number] [place] Stop: 02/03/20 05:59 Last Admin: 01/04/20 14:33 Dose: 125 mls/hr Documented by: Lorazepam (Ativan) 1 mg in 2 mls @ 0.5 mls/min IV Q6H PRN PRN Reason: Agitation Stop: 02/03/20 07:23 Last Admin: 01/04/20 14:33 Dose: 0.5 mls/min Documented by: Methadone HCl (Methadone Hcl 10 Mg Tab) 10 mg PO Q6H PRN PRN Reason: Pain Stop: 01/18/20 08:15 Last Admin: 01/04/20 15:03 Dose: 10 mg Documented by: Miscellaneous (Icu Protocol For Hyperglycemia) 1 ea N/A PRN PRN; Protocol PRN Reason: Hyperglycemia Protocol Stop: 01/05/20 21:35 Miscellaneous (Remove Nicoderm Patch) 1 ea N/A DAILY@0859 [facility] Stop: 02/03/20 08:58 Last Admin: 01/04/20 08:19 Dose: 1 ea Documented by: Miscellaneous Information (Vancomycin Consult Active) 1 ea N/A UD PRN PRN Reason: Consult Stop: 02/02/20 19:39 Miscellaneous Information (Piperacill/Tazobac Consult Active) 1 ea N/A UD PRN PRN Reason: Consult Stop: 02/02/20 21:35 Nicotine (Nicotine 7 Mg/24 Hr Tdsy) 7 mg TD QAM [facility] Stop: 02/03/20 08:59 Last Admin: 01/04/20 04:51 Dose: 7 mg Documented by: Nystatin (Nystatin Susp 500,000 U/5 Ml Udc) 5 ml PO QID [facility] Stop: 01/13/20 20:59 Last Admin: 01/04/20 13:46 Dose: 5 ml Documented by: Ondansetron HCl (Ondansetron Inj 2 Mg/Ml 2 Ml Vial) 4 mg IV Q6H PRN PRN Reason: Nausea Stop: 02/03/20 07:23 Resident Activity Tracking Resident Involvement: Resident Care Provided Care Provided: Adult Hospital Medicine
[2020-01-04] MEDS: ACETAMINOPHEN 325 MG TAB PO PRN (21:42)
--- NOTE | 2020-01-04 22:52 | Electrocardiogram Report ---
Test Reason : Blood Pressure : / mmHG Vent. Rate : 120 BPM Atrial Rate : 120 BPM P-R Int : 142 ms QRS Dur : 090 ms QT Int : 292 ms P-R-T Axes : 062 061 050 degrees QTc Int : 412 ms Sinus tachycardia Otherwise normal ECG No previous ECGs available Confirmed by Wilmer Zelaya ([id number]) on 01/04/2020 10:52:31 PM Referred By: REFERRED SELF Confirmed By:Wilmer Zelaya
[2020-01-05] MEDS: LORazepam 1 MG/2 ML VIAL IV PRN ×3 (04:11→21:49)
[2020-01-05] MEDS: ACETAMINOPHEN 325 MG TAB PO PRN ×3 (04:59→22:18)
[2020-01-05] MEDS: SODIUM CHLORIDE 0.9% 1000ML 1,000 ML IV SCH (05:19)
[2020-01-05] MEDS ORDERED: VANCOMYCIN TROUGH ONE (05:30)
[2020-01-05 05:44] LABS: Mean Corpuscular Hgb Conc 34.7 g/dL (32-36)
[2020-01-05] MEDS: VANCOMYCIN HCL 1,250 MG in SODIUM CHLORIDE 0.9% 250 ML IV SCH (05:48)
[2020-01-05] MEDS: PIPERACILLIN/TAZOBACTAM 3.375 GM in DEXTROSE 5% 100 ML IV SCH (05:49)
[2020-01-05 05:53] LABS: INR 1.2 (0.9-1.1)
[2020-01-05 05:54] LABS: Hematocrit (blood only) 27.7 % (37-47); Hemoglobin 9.6 g/dL (12.0-16.0); RDW Coefficient of Variation 15.9 % (11.5-14.5); Red Blood Count 3.55 M/uL (4.2-5.4)
[2020-01-05] MEDS: ONDANSETRON INJ 2 MG/ML 2 ML VIAL IV PRN (05:59)
[2020-01-05 06:07] LABS: Mean Platelet Volume 10.9 fL (7.4-10.4); Platelet Count 124 K/uL (130-400)
[2020-01-05 06:08] LABS: Basophils # (auto) 0.01 K/uL (0-0.2); Basophils % (auto) 0.1 %; Dohle Bodies 1+; Echinocytes 1+; Eosinophils # (auto) 0.08 K/uL (0-0.5); Eosinophils % (auto) 0.9 %; Immature Granulocytes # (auto) 0.06 K/uL (0.00-0.02); Immature Granulocytes % (auto) 0.7 %; Lymphocytes # (auto) 1.38 K/uL (1.2-3.4); Lymphocytes % (auto) 15.5 %; Monocytes # (auto) 0.73 K/uL (0.11-0.59); Monocytes % (auto) 8.2 %; Neutrophils # (auto) 6.64 K/uL (1.4-6.5); Neutrophils % (auto) 74.6 %; Platelet Estimate Decreased (Normal); Toxic Granulation 1+
[2020-01-05 06:13] LABS: Alanine Aminotransferase 43 U/L (12-78); Albumin Globulin Ratio 0.4 (0.9-2); Albumin Level 1.4 gm/dl (3.4-5.0); Alkaline Phosphatase 83 U/L (45-117); Aspartate Aminotransferase 53 U/L (15-37); BUN Creatinine Ratio 20.2 (10-20); Bilirubin Direct 0.2 mg/dl (0-0.2); Bilirubin,Total 0.6 mg/dl (0.2-1); Blood Urea Nitrogen 9 mg/dl (7-18); Calcium 6.9 mg/dl (8.5-10.1); Carbon Dioxide 25 mmol/L (21-32); Chloride 113 mmol/L (98-107); Creatinine Clr Calc Pharmacy 165.3 ml/min; Est GFR (African American) > 150.0; Est GFR (Non-African American) 136.3; Globulin 3.5 gm/dl (2.5-4.0); Glucose 70 mg/dl (70-99); Magnesium 1.7 mg/dl (1.8-2.4); Phosphorus 2.8 mg/dl (2.5-4.9); Potassium 3.2 mmol/L (3.5-5.1); Sodium 141 mmol/L (136-145); Total Protein 4.9 gm/dl (6.4-8.2)
[2020-01-05] MEDS ORDERED: POTASSIUM CHLORIDE 20 MEQ TABCR PO STA (06:44)
[2020-01-05] MEDS: NICOTINE 7 MG/24 HR TDSY TD SCH (07:55)
[2020-01-05] MEDS: NYSTATIN SUSP 500,000 U/5 ML UDC PO SCH ×4 (07:55→20:29)
[2020-01-05] MEDS: POTASSIUM CHLORIDE / WTR 20 MEQ/100 ML PLCT IV SCH ×2 (07:57→09:55)
[2020-01-05] MEDS: MAGNESIUM SULFATE / D5W 1 GM/100 ML BAG IV SCH ×2 (08:05→09:54)
[2020-01-05] MEDS: NOREPINEPHRINE BIT INJ 8 MG in DEXTROSE 5% 500 ML IV SCH (09:58)
[2020-01-05] MEDS ORDERED: VANCOMYCIN HCL 1,250 MG in SODIUM CHLORIDE 0.9% 250 ML IV SCH (10:00)
[2020-01-05] MEDS: METHADONE HCL 10 MG TAB PO PRN ×2 (10:04→20:28)
--- NOTE | 2020-01-05 10:12 | Hospitalist Progress Note ---
Date of Service January 05, 2020 Assessment & Plan (1) Drug abuse, IV: 29-year-old female with history of prior Suboxone use and IV drug use with heroin presents with 2 weeks of fevers, chills, myalgias, hand and foot pain found to be in septic shock likely secondary to endocarditis with showering emboli. Septic shock -off pressors -IVF NSS@75 mls/hr -painful lesions on her hands/feet are highly suspicious for Osler's nodes from acute infectious endocarditis -CTA chest consistent with infectious process suspicious for septic emboli -Echocardiogram: There is a visualized small mobile vegetation 2-3 mm at the junction of the chordal structure and the anterior mitral valve leaflet. Focal thickening of the anterior leaflet tip may represent infectious process as well. The mitral valve is competent. There is no visualized perivalvular abscess. Trace mitral regurgitation. Tricuspid valve leaflet edges appear thickened in the apical four-chamber and subcostal views. Distinct vegetation not identified but not excluded by current study. There is mild to moderate tricuspid regurgitation. -Blood cultures growing gram-positive cocci in clusters preliminary -IV antibiotics - zosyn, vancomycin. Discontinue doxy -Nasal MRSA screen positive -COVID negative IV Drug abuse Patient states that she was on Suboxone previously but ran out and thus turned to IV heroin Methadone 10 mg every 6 hours as needed -HIV testing negative -Hep B antigen negative, hep B IgM pending . Hep C antibody negative -Blood cultures for concern of endocarditis -Tox screen : Positive for opioids and methamphetamine. Finalization pending -Will need social work assistance, psych services, drug/alcohol rehab, etc following this admission. Appreciate CM assistance Coagulopathy -Likely early DIC from septic shock - fibrinogen 434, d-dimer 3110, FDP 10-40 oh elevated Elevated liver enzymes-mild In setting of hypotension may have shock liver We will trend daily Thrombocytopenia -Differential - DIC / sepsis vs liver dysfunction/splenomegaly vs nutritional deficiency vs combination of factors -Trend Daily CBC Defer management decisions to ICU team. FEN/GI: NSS@75 DVT prophylaxis: SCDs Full code Dispo: Remains in ICU Admission and Anticipated Discharge Date Admission Date: January 03, 2020 Supervising Physician Co-Signing Physician Notes I personally examined the patient and verified all laura points of history and exam, discussed case, and agree with decision making with Dr Han aching all over but chest the worst. breathing feels tight. meds help a little. vitals noted nad heent nc at mmm breathing unlabored. L ribs inhalation dysfunction (mildly) - respiratory assist - mild improvmeent in tissue texture endocarditis - anticipate MRSA most likely vs MSSA - continue current abx and supportive care pending ongoing improvement and ID&S on cultures add lidocaine patch to chest wall Subjective continuing to have withdrawal pains throughout body. Review of Systems Constitutional: + malaise and + weakness; no fever, no chills, no body aches and no fatigue Respiratory: no cough and no dyspnea Cardiovascular: no chest pain, no dyspnea and no edema Gastrointestinal: no abdominal pain, no nausea, no vomiting, no constipation and no diarrhea/loose stools Genitourinary: no dysuria Physical Exam Constitutional: + thin and cooperative Neck: normal visual inspection Respiratory: normal respiratory effort and able to speak in complete sentences; no respiratory distress, no labored breathing, no retractions, no cough and no audible wheezes Auscultation: lungs clear to auscultation bilaterally; no crackles, no rales, no rhonchi and no wheezes Cardiovascular: Rate/Rhythm: regular rate and regular rhythm Heart Sounds: normal S1 and normal S2; no gallop, no murmur and no cardiac rub Vessels: posterior tibial pulses present Extremities: no pedal edema and no edema Gastrointestinal (Abdomen): Inspection/Auscultation: abdomen normal to inspection and normal bowel sounds; abdomen not distended P ercussion/Palpation: abdomen soft; abdomen nontender, no guarding, abdomen not rigid and no abdominal mass Skin: +janeway lesions Results & Data Results & Data ([facility]) Vital Signs (Past 12 Hours) Vital Signs Temp Pulse Resp BP Pulse Ox 01/05/20 08:30 37.3 C 72 26 H 93 01/05/20 08:02 37.4 C 80 18 116/01/05/20 08:00 37.4 C 73 28 H 01/05/20 07:32 37.5 C 74 26 H 116/68 01/05/20 07:30 37.5 C 81 25 H 01/05/20 07:02 37.7 C H 60 25 H 98/65 L 01/05/20 07:00 37.8 C H 58 L 27 H 01/05/20 06:33 37.9 C H 70 33 H 95 01/05/20 06:32 37.9 C H 96 H 34 H 96/74 L 95 01/05/20 06:31 37.9 C H 86 35 H 95 01/05/20 06:02 37.9 C H 105 H 24 126/62 94 01/05/20 06:01 38.3 C H 83 22 92 01/05/20 05:33 38.3 C H 82 30 H 99/62 L 94 01/05/20 05:31 38.2 C H 110 H 19 89 L 01/05/20 05:02 38.2 C H 112 H 18 113/75 96 01/05/20 05:01 38.3 C H 94 H 41 H 92 01/05/20 04:32 38.2 C H 84 29 H 109/66 95 01/05/20 04:31 38.1 C H 26 H 94 01/05/20 04:02 37.9 C H 87 21 107/79 97 01/05/20 04:00 38.1 C H 28 H 96 01/05/20 03:32 38.0 C H 85 24 113/67 93 01/05/20 03:30 38.0 C H 76 32 H 95 01/05/20 03:02 37.9 C H 94 H 19 131/118 H 01/05/20 03:00 37.9 C H 71 28 H 96 01/05/20 02:32 37.8 C H 77 28 H 116/68 94 01/05/20 02:30 37.8 C H 82 33 H 93 01/05/20 02:03 37.7 C H 71 23 92/72 L 01/05/20 02:00 37.7 C H 67 26 H 01/05/20 01:33 37.6 C H 90 26 H 106/62 87 L 01/05/20 01:30 37.6 C H 101 H 21 98 01/05/20 01:02 37.7 C H 69 25 H 96/53 L 92 01/05/20 01:00 37.7 C H 63 27 H 98 01/05/20 00:32 37.7 C H 99 H 27 H 115/72 96 01/05/20 00:30 37.8 C H 81 30 H 94 01/05/20 00:02 38.0 C H 86 32 H 105/56 L 93 08/17/20 00:00 38.0 C H 85 35 H 93 01/04/20 23:32 38.2 C H 78 32 H 111/60 94 01/04/20 23:30 38.2 C H 89 29 H 94 01/04/20 23:02 38.5 C H 98 H 35 H 103/58 L 94 01/04/20 23:00 38.5 C H 98 H 32 H 94 01/04/20 22:32 38.6 C H 69 32 H 105/51 L 96 01/04/20 22:31 38.6 C H 86 36 H 92 Laboratory Results WBC 8.90 K/uL (4.8-10.8) 01/05/20 05:24 RBC 3.55 M/uL (4.2-5.4) L 01/05/20 05:24 Hgb 9.6 g/dL (12.0-16.0) L 01/05/20 05:24 Hct 27.7 % (37-47) L 01/05/20 05:24 MCV 78.0 fL (80-100) L 01/05/20 05:24 MCH 27.0 pg (25-34) 01/05/20 05:24 MCHC 34.7 g/dL (32-36) 01/05/20 05:24 RDW Std Deviation 46.0 fL (36.4-46.3) 01/05/20 05:24 RDW Coeff of Liliya 15.9 % (11.5-14.5) H 01/05/20 05:24 Plt Count 124 K/uL (130-400) L 01/05/20 05:24 MPV 10.9 fL (7.4-10.4) H 01/05/20 05:24 Immature Gran % (Auto) 0.7 % 01/05/20 05:24 Neut % (Auto) 74.6 % 01/05/20 05:24 Lymph % (Auto) 15.5 % 01/05/20 05:24 [place] % (Auto) 8.2 % 01/05/20 05:24 Eos % (Auto) 0.9 % 01/05/20 05:24 Baso % (Auto) 0.1 % 01/05/20 05:24 Neut # (Auto) 6.64 K/uL (1.4-6.5) H 01/05/20 05:24 Lymph # (Auto) 1.38 K/uL (1.2-3.4) 01/05/20 05:24 [place] # (Auto) 0.73 K/uL (0.11-0.59) H 01/05/20 05:24 Eos # (Auto) 0.08 K/uL (0-0.5) 01/05/20 05:24 Baso # (Auto) 0.01 K/uL (0-0.2) 01/05/20 05:24 Immature Gran # (Auto) 0.06 K/uL (0.00-0.02) H 01/05/20 05:24 Toxic Granulation 1+ 01/05/20 05:24 Toxic Vacuolation 1+ 01/03/20 16:35 Dohle Bodies 1+ 01/05/20 05:24 Platelet Estimate Decreased (Normal) L 01/05/20 05:24 Echinocytes 1+ 01/05/20 05:24 ESR 73 mm/hr (0-21) H 01/03/20 16:35 PT 13.0 Seconds (9.0-12.0) H 01/05/20 05:24 INR 1.2 (0.9-1.1) H 01/05/20 05:24 APTT 33.6 Seconds (21.0-31.0) H 01/03/20 16:35 PTT Ratio 1.2 01/03/20 16:35 Fibrinogen 434 mg/dl (184-400) H 01/03/20 22:59 Fibrinogen Cancelled 01/03/20 22:59 Fibrin Degrad Products 10-40 mcg/ml (<10) H 01/03/20 22:59 D-Dimer 3110 ug/L FEU (0-500) H* 01/03/20 22:59 Sodium 141 mmol/L (136-145) 01/05/20 05:24 Potassium 3.2 mmol/L (3.5-5.1) L 01/05/20 05:24 Chloride 113 mmol/L (98-107) H 01/05/20 05:24 Carbon Dioxide 25 mmol/L (21-32) 01/05/20 05:24 Anion Gap 3.0 (3-11) 01/05/20 05:24 BUN 9 mg/dl (7-18) D 01/05/20 05:24 Creatinine 0.46 mg/dl (0.6-1.2) L 01/05/20 05:24 Est Cr Clr Drug Dosing 165.3 ml/min 01/05/20 05:24 Est GFR ( Amer) > 150.0 01/05/20 05:24 Est GFR (Non-Af Amer) 136.3 01/05/20 05:24 BUN/Creatinine Ratio 20.2 (10-20) H 01/05/20 05:24 Glucose 70 mg/dl (70-99) 01/05/20 05:24 POC Glucose 159 mg/dl (70-99) H 01/05/20 17:41 Lactate 1.5 mmol/L (0.4-2.0) 01/03/20 21:01 Calcium 6.9 mg/dl (8.5-10.1) L 01/05/20 05:24 Phosphorus 2.8 mg/dl (2.5-4.9) 01/05/20 05:24 Magnesium 1.7 mg/dl (1.8-2.4) L 01/05/20 05:24 Total Bilirubin 0.6 mg/dl (0.2-1) 01/05/20 05:24 Direct Bilirubin 0.2 mg/dl (0-0.2) 01/05/20 05:24 AST 53 U/L (15-37) H 01/05/20 05:24 ALT 43 U/L (12-78) 01/05/20 05:24 Alkaline Phosphatase 83 U/L (45-117) 01/05/20 05:24 Troponin I < 0.015 ng/ml (0-0.045) 01/03/20 16:35 C-Reactive Protein 21.30 mg/dl (0-0.29) H 01/03/20 16:35 Total Protein 4.9 gm/dl (6.4-8.2) L 01/05/20 05:24 Albumin 1.4 gm/dl (3.4-5.0) L 01/05/20 05:24 Globulin 3.5 gm/dl (2.5-4.0) 01/05/20 05:24 Albumin/Globulin Ratio 0.4 (0.9-2) L 01/05/20 05:24 Procalcitonin 2.38 ng/ml (0-0.5) H 01/03/20 16:35 TSH 1.640 uIu/ml (0.300-4.500) 01/03/20 16:35 HCG, Qual Negative (Negative) 01/03/20 16:35 Random Cortisol 41.64 mcg/dl 01/03/20 19:41 Urine Color Yellow 01/03/20 20:15 Urine Appearance Slightly Cloudy (Clear) 01/03/20 20:15 Urine pH 6.5 (4.5-7.5) 01/03/20 20:15 Ur Specific [place] <= 1.005 (1.000-1.030) 01/03/20 20:15 Urine Protein Negative (Negative) 01/03/20 20:15 Urine Glucose (UA) Negative (Negative) 01/03/20 20:15 Urine Ketones Negative (Negative) 01/03/20 20:15 Urine Blood Trace (Negative) H 01/03/20 20:15 Urine Nitrite Negative (Negative) 01/03/20 20:15 Urine Bilirubin Negative (Negative) 01/03/20 20:15 Urine Urobilinogen Negative (Negative) 01/03/20 20:15 Ur Leukocyte Esterase 2+ (Negative) H 01/03/20 20:15 Urine RBC 0-4 /hpf (0-4) 01/03/20 20:15 Urine WBC >30 /hpf (0-5) H 01/03/20 20:15 Ur Epithelial Cells >30 /lpf (0-5) H 01/03/20 20:15 Urine Bacteria 2+ (Negative) H 01/03/20 20:15 Urine Trichomonas Present (None Prsent) H 01/03/20 20:15 Nasal Screen MRSA (PCR) Positive (Negative) A 01/03/20 22:00 Stl C. diff Tox B Gene Negative Cdiff Gene (Neg) 01/05/20 14:34 Vancomycin Trough 6.5 mcg/ml (See Comment) 01/05/20 05:24 Salicylates < 1.7 mg/dl (2.8-20) L 01/03/20 19:41 Urine Opiates Screen Pos (Neg) H 01/03/20 20:15 Ur Methadone, Qual Neg (Neg) 01/03/20 20:15 Acetaminophen 6 ug/ml (10-30) L 01/03/20 19:41 Urine Barbiturates Neg (Neg) 01/03/20 20:15 Ur Phencyclidine (PCP) Neg (Neg) 01/03/20 20:15 U Amphetamin/Meth Scrn Pos (Neg) H 01/03/20 20:15 MDMA (Ecstasy) Screen Neg (Neg) 01/03/20 20:15 U Benzodiazepines Scrn Neg (Neg) 01/03/20 20:15 Ur Cocaine Metabolite Neg (Neg) 01/03/20 20:15 U Marijuana (THC) Screen Neg (Neg) 01/03/20 20:15 COVID-19 Eval Order Covid19 Done at [facility] 01/03/20 22:00 COVID-19 PCR NEGATIVE (Negative) 01/03/20 22:00 Hep Bs Antigen Neg (Neg) 01/03/20 19:41 Hepatitis C Antibody Neg (Neg) 01/03/20 19:41 HIV 1&2 Ab/P24 Ag 4thGn Neg (Neg) 01/04/20 04:31 Bld Cult Staph aureus PCR Positive (Negative) A 01/03/20 16:35 Blood Culture MRSA PCR Positive (Negative) A* 01/03/20 16:35 Resident Activity Tracking Resident Involvement: Resident Care Provided Care Provided: Adult Hospital Medicine
--- NOTE | 2020-01-05 11:05 | Critical Care Progress Note ---
Date of Service January 05, 2020 Assessment & Plan (1) Endocarditis: 29-year-old female with a past medical history of IV heroin abuse, past history of possible cervical cancer now presenting with endocarditis and bacteremia. Patient is off Levophed since early this morning. She is saturating well on room air. She is actively withdrawing from opiates. She appears very uncomfortable. Echocardiogram reviewed which demonstrates mild to moderate tricuspid valve regurgitation. We are going to consult cardiology for possible KILEY. No overt indication for cardiothoracic intervention at this time, but I would like cardiology's input. We are switching her vancomycin to ceftaroline as the vancomycin trough levels are very low. Repeating blood cultures today. Consulting psychiatry to assist with withdrawal symptoms. She was previously on Suboxone. N.p.o. for now. Hold DVT prophylaxis for now until cardiology sees her. Replace electrolytes per protocol. We are starting her on half-normal saline with D5 and 20 mEq of potassium at 80 mL an hour. (2) Drug abuse, IV: (3) Bacteremia due to Gram-positive bacteria: (4) Septic embolism: (5) Opiate withdrawal: Admission and Anticipated Discharge Date Admission Date: January 03, 2020 Subjective Patient seen and examined at bedside. She is complaining of diffuse pain. She is crying at times. No significant fevers overnight. She is a little tachypneic. She appears cold. Review of Systems Review of Systems: All systems reviewed & are unremarkable except as noted in HPI & below Physical Exam Constitutional: Thin appearing female. Emotional at times. Appears uncomfortable. No significant distress. Eyes: PERRL, conjunctivae normal, anicteric sclerae ENMT: external ear and nose normal, oropharynx normal Neck: normal visual inspection Respiratory: normal respiratory effort, lungs clear to auscultation Cardiovascular: Tachycardic. Regular rhythm. I can appreciate a 3 out of 6 systolic flow murmur noted in the right upper sternal border. Gastrointestinal (Abdomen): normal bowel sounds, soft, nontender, no hepatosplenomegaly Musculoskeletal: no cyanosis or clubbing, extremities motor strength 5/5 Skin: There do appear to be some Janeway lesions on her feet. Possible splinter hemorrhage monitor pinky. Neurologic: PERRL, EOMI, accommodation nl, no face palsy, no dysarthria Results & Data Results & Data ([facility]) Vital Signs (Past 12 Hours) Vital Signs Temp Pulse Resp BP Pulse Ox 01/05/20 08:30 99.1 F 72 26 H 93 01/05/20 08:02 99.3 F 80 18 116/68 01/05/20 08:00 99.3 F 73 28 H 01/05/20 07:32 99.5 F 74 26 H 116/68 01/05/20 07:30 99.5 F 81 25 H 01/05/20 07:02 99.9 F H 60 25 H 98/65 L 01/05/20 07:00 100.0 F H 58 L 27 H 01/05/20 06:33 100.2 F H 70 33 H 95 01/05/20 06:32 100.2 F H 96 H 34 H 96/74 L 95 01/05/20 06:31 100.2 F H 86 35 H 95 01/05/20 06:02 100.2 F H 105 H 24 126/62 94 01/05/20 06:01 100.9 F H 83 22 92 01/05/20 05:33 100.9 F H 82 30 H 99/62 L 94 01/05/20 05:31 100.8 F H 110 H 19 89 L 01/05/20 05:02 100.8 F H 112 H 18 113/75 96 01/05/20 05:01 100.9 F H 94 H 41 H 92 01/05/20 04:32 100.8 F H 84 29 H 109/66 95 01/05/20 04:31 100.6 F H 26 H 94 01/05/20 04:02 100.2 F H 87 21 107/79 97 01/05/20 04:00 100.6 F H 28 H 96 01/05/20 03:32 100.4 F H 85 24 113/67 93 01/05/20 03:30 100.4 F H 76 32 H 95 01/05/20 03:02 100.2 F H 94 H 19 131/118 H 01/05/20 03:00 100.2 F H 71 28 H 96 01/05/20 02:32 100.0 F H 77 28 H 116/68 94 01/05/20 02:30 100.0 F H 82 33 H 93 01/05/20 02:03 99.9 F H 71 23 92/72 L 01/05/20 02:00 99.9 F H 67 26 H 01/05/20 01:33 99.7 F H 90 26 H 106/62 87 L 01/05/20 01:30 99.7 F H 101 H 21 98 01/05/20 01:02 99.9 F H 69 25 H 96/53 L 92 01/05/20 01:00 99.9 F H 63 27 H 98 01/05/20 00:32 99.9 F H 99 H 27 H 115/72 96 01/05/20 00:30 100.0 F H 81 30 H 94 01/05/20 00:02 100.4 F H 86 32 H 105/56 L 93 01/05/20 00:00 100.4 F H 85 35 H 93 01/04/20 23:32 100.8 F H 78 32 H 111/60 94 01/04/20 23:30 100.8 F H 89 29 H 94 01/04/20 23:02 101.3 F H 98 H 35 H 103/58 L 94 01/04/20 23:00 101.3 F H 98 H 32 H 94 I personally reviewed vital signs, labs and chest imaging. Coding Level of Care Code 55826 Subseq Hosp Care Lvl 3 Diagnoses Endocarditis I38 Drug abuse, IV F19.10 Bacteremia due to Gram-positive bacteria R78.81 Septic embolism I76 Opiate withdrawal F11.23
[2020-01-05] MEDS: CEFTAROLINE FOSAMIL ACETATE 600 MG in SODIUM CHLORIDE 0.9% 250 ML IV SCH ×2 (11:43→17:24)
[2020-01-05] MEDS: D5W AND 1/2NSS + 20MEQ KCL 20 MEQ/1,000 ML BAG IV SCH (11:47)
[2020-01-05] MEDS: PANTOprazole 40 MG TAB PO SCH (11:48)
[2020-01-05] MEDS ORDERED: LACTATED RINGER'S 500 ML IV ONE (14:33)
--- NOTE | 2020-01-05 14:35 | Cardiology Consultation ---
Date of Consultation January 05, 2020 Assessment & Plan (1) Endocarditis: -vegetation easily seen on the anterior mitral leaflet and also suspected on the tricuspid valve. -no need for KILEY at this time. -continue broad-spectrum intravenous antibiotics. (2) Septic embolism: -Janeway lesion noted on the right palm. -pain in fingers and toes may represent Osler nodes. -suspect septic pulmonary emboli. (3) Drug abuse, IV: -obvious risk factors for endocarditis. History of Present Illness Attending Physician: Michael Parikh DO History of Present Illness Ms. Linares is a 29-year-old female admitted on January 02 with sepsis from subacute bacterial endocarditis. This consultation was ordered to equity sales assistant her cardiac management. The majority of her history is obtained from the chart as she is not particularly cooperative today. The patient presented with over 2 weeks of fevers, chills, myalgias, and painful hands and feet. The patient ran out of her Suboxone and began using intravenous heroin several months ago. Her workup has revealed 4/4 blood cultures positive for Staphylococcus species, probable septic pulmonary emboli, and vegetations on her mitral and tricuspid valves. Fortunately, she has improved clinically, as has her blood pressure with intravenous antibiotics and hydration. Currently, patient is resting in bed and quite somnolent. She complains of pain with any motion of her extremities. Past medical and surgical history 1. Intravenous drug abuse 2. No past surgeries Social history Single, lives alone Smokes 1 pack of cigarettes daily No alcohol Intravenous heroin use Family history Unknown, patient adopted. Review of systems Refused Allergies Allergy/AdvReac Type Severity Reaction Status Date / Time No Known Allergies Allergy Unverified 01/03/20 17:16 Home Medications Home Medications Medication Instructions Recorded Confirmed Type No Known Home Medications 01/03/20 01/03/20 History Patient History Medical History (Updated 01/05/20 @ 11:01 by Alejo Savage MD) Bacteremia due to Gram-positive bacteria Endocarditis Heroin use Opiate withdrawal Septic embolism Surgical History No pertinent past surgical history Family History Other Adopted Social History (Updated 01/03/20 @ 20:26 by Laz Henry) Smoking Status: Current every day smoker Tobacco Type: Cigarettes Second Hand Exposure: Yes; Do You Dip or Chew Tobacco: No; Tobacco Cessation Education Requested by Patient: No Hx Alcohol Use: No Hx Substance Use: Yes Non-Prescribed Medications: Heroin Last Used Substance: Hours (ago) Last Used Substance Other:: 01/03/2020 AM Substance Use Type Other:: previously took suboxone Preferred Language: Yemeni Communication Ability: Effective Beliefs That Will Affect Care: None marital status: Single Current Living Situation: Alone current occupational status: unemployed How many Children do You have: 2 How many Children do You have Comment: ages 5 and 6; 6yo stays with father; 5yo stays with grandmother Other Information That Helps Us Care for You: No Feels Safe at Home: Yes Safety Concerns: Feels Safe At This Time Physical Exam Physical Exam: In general is well-developed well-nourished white female lying supine in bed. HEENT exam is negative. Neck is supple with full carotid upstrokes. No carotid bruits. Jugular venous pressure difficult to assess as the patient remains supine. Cardiovascular exam reveals a regular rhythm with a normal S1-S2. No obvious murmurs. No S3 or S4. Lungs are clear without rales, rhonchi or wheezes. Abdomen is soft and nontender. Extremities note a Janeway lesion on the right palm. She complains of discomfort in the hands and feet with any movement by the examiner. Results & Data ([facility]) Vital Signs (Past 12 Hours) Vital Signs Temp Pulse Resp BP Pulse Ox 01/05/20 14:01 38.4 C H 112 H 38 H 94 01/05/20 13:31 38.2 C H 101 H 40 H 95 01/05/20 13:22 38.2 C H 92 H 30 H 115/65 01/05/20 13:01 38.3 C H 93 H 43 H 93 01/05/20 12:31 38.1 C H 88 40 H 93 01/05/20 12:22 38.1 C H 85 39 H 115/64 01/05/20 12:01 37.9 C H 89 45 H 95 01/05/20 11:30 38.0 C H 97 H 30 H 93 01/05/20 11:22 38.0 C H 87 35 H 119/77 92 01/05/20 11:00 37.9 C H 84 27 H 94 01/05/20 10:30 37.7 C H 75 34 H 95 01/05/20 10:22 37.7 C H 100 H 29 H 109/71 93 01/05/20 10:00 37.6 C H 110 H 27 H 92 01/05/20 09:30 37.5 C 71 15 96 01/05/20 09:22 37.5 C 68 28 H 101/65 95 01/05/20 09:00 37.4 C 71 28 H 94 01/05/20 08:30 37.3 C 72 26 H 93 01/05/20 08:02 37.4 C 80 18 116/68 01/05/20 08:00 37.4 C 73 28 H 01/05/20 07:32 37.5 C 74 26 H 116/68 01/05/20 07:30 37.5 C 81 25 H 01/05/20 07:02 37.7 C H 60 25 H 98/65 L 01/05/20 07:00 37.8 C H 58 L 27 H 01/05/20 06:33 37.9 C H 70 33 H 95 01/05/20 06:32 37.9 C H 96 H 34 H 96/74 L 95 01/05/20 06:31 37.9 C H 86 35 H 95 01/05/20 06:02 37.9 C H 105 H 24 126/62 94 01/05/20 06:01 38.3 C H 83 22 92 01/05/20 05:33 38.3 C H 82 30 H 99/62 L 94 01/05/20 05:31 38.2 C H 110 H 19 89 L 01/05/20 05:02 38.2 C H 112 H 18 113/75 96 01/05/20 05:01 38.3 C H 94 H 41 H 92 01/05/20 04:32 38.2 C H 84 29 H 109/66 95 01/05/20 04:31 38.1 C H 26 H 94 01/05/20 04:02 37.9 C H 87 21 107/79 97 01/05/20 04:00 38.1 C H 28 H 96 01/05/20 03:32 38.0 C H 85 24 113/67 93 01/05/20 03:30 38.0 C H 76 32 H 95 01/05/20 03:02 37.9 C H 94 H 19 131/118 H 01/05/20 03:00 37.9 C H 71 28 H 96 01/05/20 02:32 37.8 C H 77 28 H 116/68 94 01/05/20 02:30 37.8 C H 82 33 H 93 Laboratory Results CBC notes hemoglobin 9.6, hematocrit 27.7, white count 8.9, platelet count 124 1000. Electrolytes note a sodium of 141, potassium 3.2, chloride 113, bicarb 25, BUN 9, creatinine 0.46, glucose of 70. 4/4 blood cultures note a staphylococcus species. Diagnostic Findings EKG notes sinus tachycardia without abnormalities. Echocardiogram personally reviewed and noted a lesion with independent motion on the anterior mitral leaflet. Independent motion also noted with a lesion on the tricuspid valve. Ejection fraction is normal at 55 to 60%. There is mild tricuspid regurgitation. Chest x-ray notes bilateral airspace opacities. CT scan of the chest noted multiple nodular airspace opacities with early cavitation several suggesting septic emboli. PG Care Time/CCT Total # of Minutes Spent Total Time Spent with Patient: Total time spent is greater than 50% in coordination of care (as documented) at patient's floor/unit and/or counseling patient: Coding Level of Care Code 78645 Inpt Consult Level 4 Diagnoses Endocarditis I38 Septic embolism I76 Drug abuse, IV F19.10
--- NOTE | 2020-01-05 15:54 | Electrocardiogram Report ---
Test Reason : Blood Pressure : / mmHG Vent. Rate : 107 BPM Atrial Rate : 107 BPM P-R Int : 140 ms QRS Dur : 090 ms QT Int : 332 ms P-R-T Axes : 044 036 049 degrees QTc Int : 443 ms Sinus tachycardia Low voltage QRS Borderline ECG When compared with ECG of 03-JAN-2020 16:20, No significant change was found Confirmed by Paul Koehler ([id number]) on 01/05/2020 3:54:29 PM Referred By: REFERRED SELF Confirmed By:Paul Koehler
--- NOTE | 2020-01-05 17:46 | Billing Data ---
Date of Service January 05, 2020 Coding Level of Care Code 85800 Subseq Hosp Care Lvl 2
[2020-01-05] MEDS: LIDOCAINE 5% 1 PATCH TD SCH (20:28)
[2020-01-06] MEDS: CEFTAROLINE FOSAMIL ACETATE 600 MG in SODIUM CHLORIDE 0.9% 250 ML IV SCH ×3 (02:17→17:26)
[2020-01-06] MEDS: D5W AND 1/2NSS + 20MEQ KCL 20 MEQ/1,000 ML BAG IV SCH ×2 (02:17→13:53)
[2020-01-06 03:48] LABS: Hepatitis A Antibody IgM NON-REACTIVE (NON-REACTIVE); Hepatitis B Core Antibody IgM NON-REACTIVE (NON-REACTIVE)
[2020-01-06] MEDS: METHADONE HCL 10 MG TAB PO PRN (04:07)
[2020-01-06] MEDS: LORazepam 1 MG/2 ML VIAL IV PRN (04:08)
[2020-01-06 04:43] LABS: Hematocrit (blood only) 30.1 % (37-47); Hemoglobin 10.5 g/dL (12.0-16.0); INR 1.2 (0.9-1.1); Mean Corpuscular Hemoglobin 27.3 pg (25-34); Mean Corpuscular Hgb Conc 34.9 g/dL (32-36); Mean Corpuscular Volume 78.2 fL (80-100); Mean Platelet Volume 10.9 fL (7.4-10.4); Platelet Count 196 K/uL (130-400); Prothrombin Time 12.5 Seconds (9.0-12.0); RDW Coefficient of Variation 15.9 % (11.5-14.5); RDW Standard Deviation 45.7 fL (36.4-46.3); Red Blood Count 3.85 M/uL (4.2-5.4); White Blood Count 9.08 K/uL (4.8-10.8)
[2020-01-06 04:53] LABS: Albumin Globulin Ratio 0.4 (0.9-2); Albumin Level 1.5 gm/dl (3.4-5.0); BUN Creatinine Ratio 5.2 (10-20); Bilirubin Direct 0.2 mg/dl (0-0.2); Bilirubin,Total 0.5 mg/dl (0.2-1); Calcium 6.7 mg/dl (8.5-10.1); Creatinine Clr Calc Pharmacy 135.8 ml/min; Est GFR (African American) 148.1; Est GFR (Non-African American) 127.8; Globulin 3.7 gm/dl (2.5-4.0); Magnesium 1.4 mg/dl (1.8-2.4); Phosphorus 2.6 mg/dl (2.5-4.9); Potassium 3.6 mmol/L (3.5-5.1); Total Protein 5.2 gm/dl (6.4-8.2)
[2020-01-06 05:01] LABS: Basophils # (auto) 0.02 K/uL (0-0.2); Basophils % (auto) 0.2 %; Echinocytes 1+; Eosinophils # (auto) 0.13 K/uL (0-0.5); Eosinophils % (auto) 1.4 %; Immature Granulocytes # (auto) 0.08 K/uL (0.00-0.02); Immature Granulocytes % (auto) 0.9 %; Lymphocytes # (auto) 2.06 K/uL (1.2-3.4); Lymphocytes % (auto) 22.7 %; Monocytes # (auto) 0.73 K/uL (0.11-0.59); Neutrophils # (auto) 6.06 K/uL (1.4-6.5); Neutrophils % (auto) 66.8 %; Toxic Granulation Occasional
[2020-01-06] MEDS ORDERED: POTASSIUM CHLORIDE 20 MEQ TABCR PO STA (05:03)
[2020-01-06] MEDS: ACETAMINOPHEN 325 MG TAB PO PRN (05:46)
[2020-01-06] MEDS: MAGNESIUM SULFATE / D5W 1 GM/100 ML BAG IV SCH ×3 (05:46→10:40)
--- NOTE | 2020-01-06 07:48 | Critical Care Progress Note ---
Date of Service January 06, 2020 Assessment & Plan (1) Endocarditis: 29-year-old female with a past medical history of IV heroin abuse, past history of possible cervical cancer now presenting with endocarditis and bacteremia that appears to be an MRSA. Patient is currently an active opiate withdrawal. Urine tox screen was positive for opiates and methamphetamines. She is having episodes of diarrhea intermittently. Pressure is low normal. She has remained off pressor support. Her blood cultures from yesterday persistently positive for bacteremia. We changed her antibiotics from vancomycin to ceftaroline yesterday. I suspect that her vancomycin was likely underdosed. She may benefit from a telehealth infectious disease consult with Shabana. We will remove her right internal jugular central line and Burgos catheter today. Repeat peripheral blood cultures today. Cardiology did not feel that there was a need for KILEY yesterday. If she is persistently bacteremic, she may need a cardiothoracic evaluation in the future. She also has evidence of septic pulmonary emboli. I am going to obtain a chest x-ray today to evaluate for effusion that she is having ongoing pleurisy. She is currently on methadone for opiate withdrawal. She is requesting more methadone. She is stable for transfer to the floor. (2) Drug abuse, IV: (3) Bacteremia due to Gram-positive bacteria: (4) Septic embolism: (5) Opiate withdrawal: Admission and Anticipated Discharge Date Admission Date: January 03, 2020 Subjective Patient seen and examined this morning. Patient was also discussed with bedside RN, donato. She is continued to have significant opiate withdrawal with frequent episodes of diarrhea. C. difficile was negative. Continues to be mildly tachycardic with heart rate of 108-110. She is complaining of some pleuritic chest pain. She has had low-grade fevers overnight with the most recent temperature of 100.4. C she is saturating 95% on room air. Review of Systems Review of Systems: Unobtainable due to cognitive status and Unobtainable due to endotracheal tube Physical Exam Constitutional: Thin appearing female. Emotional at times. Appears uncomfortable. No significant distress. Eyes: PERRL, conjunctivae normal, anicteric sclerae ENMT: external ear and nose normal, oropharynx normal Neck: normal visual inspection Respiratory: normal respiratory effort, lungs clear to auscultation Cardiovascular: Tachycardic. Regular rhythm. I can appreciate a 3 out of 6 systolic flow murmur noted in the right upper sternal border. Gastrointestinal (Abdomen): normal bowel sounds, soft, nontender, no hepatosplenomegaly Musculoskeletal: no cyanosis or clubbing, extremities motor strength 5/5 Skin: There do appear to be some Janeway lesions on her feet. Possible splinter hemorrhage monitor pinky. Neurologic: PERRL, EOMI, accommodation nl, no face palsy, no dysarthria Results & Data Results & Data ([facility]) Vital Signs (Past 12 Hours) Vital Signs Temp Pulse Resp BP Pulse Ox 01/06/20 04:31 100.4 F H 105 H 17 95 01/06/20 04:23 100.4 F H 108 H 25 H 95/55 L 95 01/06/20 04:01 100.8 F H 106 H 22 97 01/06/20 03:31 100.6 F H 102 H 34 H 95 01/06/20 03:22 100.6 F H 106 H 23 105/68 95 01/06/20 03:00 100.0 F H 114 H 14 97 01/06/20 02:30 100.6 F H 109 H 27 H 95 01/06/20 02:22 100.6 F H 105 H 41 H 104/69 95 01/06/20 02:00 100.6 F H 106 H 26 H 96 01/06/20 01:22 100.8 F H 112 H 40 H 113/62 95 01/06/20 00:22 100.9 F H 110 H 34 H 109/59 L 96 01/05/20 23:22 101.3 F H 114 H 34 H 120/65 96 01/05/20 22:22 101.3 F H 118 H 44 H 102/62 97 01/05/20 21:22 100.8 F H 107 H 25 H 105/74 98 01/05/20 20:23 100.8 F H 115 H 12 107/75 96 I personally reviewed vital signs, labs and previous chest imaging. Coding Level of Care Code 91592 Subseq Hosp Care Lvl 3 Diagnoses Endocarditis I38 Drug abuse, IV F19.10 Bacteremia due to Gram-positive bacteria R78.81 Septic embolism I76 Opiate withdrawal F11.23
--- NOTE | 2020-01-06 08:17 | XRay Report ---
XR chest 1V portable CLINICAL HISTORY: Evaluate for effusions. COMPARISON STUDY: Chest radiograph and chest CT January 03, 2020. FINDINGS: Right internal jugular central line is in place. There is no pneumothorax. There is a possi ble small left pleural effusion. Left basilar opacity has mildly increased. Additional multifocal air space opacities within lungs are noted. Cardiomediastinal silhouette is stable. IMPRESSION: 1. Slight increase in bilateral airspace opacities, most confluent within the left lower lobe. The fi ndings favor an infectious process. 2. Possible small left pleural effusion. ACT 112: Negative or not required by law. Electronically signed by: Del Guillen M.D. 01/06/2020 8:15 AM
[2020-01-06] MEDS: NICOTINE 7 MG/24 HR TDSY TD SCH (08:48)
[2020-01-06] MEDS: NYSTATIN SUSP 500,000 U/5 ML UDC PO SCH ×4 (08:48→22:06)
[2020-01-06] MEDS: PANTOprazole 40 MG TAB PO SCH (08:48)
[2020-01-06] MEDS ORDERED: PANTOprazole 40 MG TAB PO SCH (09:00)
[2020-01-06] MEDS ORDERED: GABAPENTIN 100 MG CAP PO PRN (10:38)
--- NOTE | 2020-01-06 10:40 | Hospitalist Progress Note ---
Date of Service January 06, 2020 Assessment & Plan (1) Drug abuse, IV: 29-year-old female with history of prior Suboxone use and IV drug use with heroin presents with 2 weeks of fevers, chills, myalgias, hand and foot pain found to be in septic shock likely secondary to endocarditis with showering emboli. Septic shock + Endocarditis -off pressors -IVF NSS@75 mls/hr -painful lesions on her feet are highly suspicious for Osler's nodes from acute infectious endocarditis vs. nontender janeway lesions on her hands -CTA chest consistent with infectious process suspicious for septic emboli, negative for PE -Echocardiogram: Mild to moderate tricuspid regurg with no visible vegetation but not ruled out. visible 2-3mm vegetation on mitral valve. -Blood cultures growing MRSA - on ceftaroline for coverage IV Drug abuse Patient states that she was on Suboxone previously but ran out and thus turned to IV heroin Methadone 15 mg every 6 hours as needed - Tylenol 1000 mg Q8H, Toradol 15 mg Q6H for pain control -HIV testing negative -Hep B antigen negative, hep B IgM pending . Hep C antibody negative -Tox screen : Positive for opioids and methamphetamine. -Will need social work assistance, psych services, drug/alcohol rehab, etc foll owing this admission. Appreciate CM assistance Coagulopathy -Likely early DIC from septic shock - fibrinogen 434, d-dimer 3110, FDP 10-40 oh elevated Elevated liver enzymes-mild In setting of hypotension may have shock liver We will trend daily Thrombocytopenia - likely secondary to sepsis FEN/GI: NSS@75 DVT prophylaxis: SCDs Full code Dispo: PCU Admission and Anticipated Discharge Date Admission Date: January 03, 2020 Supervising Physician Co-Signing Physician Notes I personally examined the patient and verified all laura points of history and exam, discussed case, and agree with decision making with Dr Han feeling pain still - about the same. methadone helps but then wears off. vitals noted nad heent nc at mmm breathing unlabored. L ribs inhalation dysf unction (mildly) - respiratory assist - mild improvmeent in tissue texture endocarditis - anticipate MRSA most likely vs MSSA - continue current abx although may switch to more MRSA specific to avoid additional gram neg from ceftalorine - will review literature and f/u cultures. adjust methadone stable for telemetryl Subjective Painful all over. methadone takes edge off but not well controlled. unable to eat today because of nausea from the pain. Review of Systems Respiratory: + dyspnea and + pain on inspiration; no cough Cardiovascular: + chest pain Gastrointestinal: + nausea; no abdominal pain and no vomiting Physical Exam Constitutional: Thin appearing female. uncomfortable, teary in bed. Eyes: PERRL, conjunctivae normal, anicteric sclerae ENMT: external ear and nose normal, oropharynx normal Neck: normal visual inspection Respiratory: normal respiratory effort, lungs clear to auscultation Cardiovascular: Tachycardic. Regular rhythm. Gastrointestinal (Abdomen): normal bowel sounds, soft, nontender, no hepatosplenomegaly Musculoskeletal: no cyanosis or clubbing, extremities motor strength 5/5 Skin: +janeway lesions Neurologic: PERRL, EOMI, accommodation nl, no face palsy, no dysarthria Results & Data Results & Data ([facility]) Vital Signs (Past 12 Hours) Vital Signs Temp Pulse Resp BP Pulse Ox 01/06/20 07:55 105 H 01/06/20 04:31 38.0 C H 105 H 17 95 01/06/20 04:23 38.0 C H 108 H 25 H 95/55 L 95 01/06/20 04:01 38.2 C H 106 H 22 97 01/06/20 03:31 38.1 C H 102 H 34 H 95 01/06/20 03:22 38.1 C H 106 H 23 105/68 95 01/06/20 03:00 37.8 C H 114 H 14 97 01/06/20 02:30 38.1 C H 109 H 27 H 95 01/06/20 02:22 38.1 C H 105 H 41 H 104/69 95 01/06/20 02:00 38.1 C H 106 H 26 H 96 01/06/20 01:22 38.2 C H 112 H 40 H 113/62 95 01/06/20 00:22 38.3 C H 110 H 34 H 109/59 L 96 01/05/20 23:22 38.5 C H 114 H 34 H 120/65 96 Laboratory Results WBC 9.08 K/uL (4.8-10.8) 01/06/20 04:22 RBC 3.85 M/uL (4.2-5.4) L 01/06/20 04:22 Hgb 10.5 g/dL (12.0-16.0) L 01/06/20 04:22 Hct 30.1 % (37-47) L 01/06/20 04:22 MCV 78.2 fL (80-100) L 01/06/20 04:22 MCH 27.3 pg (25-34) 01/06/20 04:22 MCHC 34.9 g/dL (32-36) 01/06/20 04:22 RDW Std Deviation 45.7 fL (36.4-46.3) 01/06/20 04:22 RDW Coeff of Liliya 15.9 % (11.5-14.5) H 01/06/20 04:22 Plt Count 196 K/uL (130-400) D 01/06/20 04:22 MPV 10.9 fL (7.4-10.4) H 01/06/20 04:22 Immature Gran % (Auto) 0.9 % 01/06/20 04:22 Neut % (Auto) 66.8 % 01/06/20 04:22 Lymph % (Auto) 22.7 % 01/06/20 04:22 [place] % (Auto) 8.0 % 01/06/20 04:22 Eos % (Auto) 1.4 % 01/06/20 04:22 Baso % (Auto) 0.2 % 01/06/20 04:22 Neut # (Auto) 6.06 K/uL (1.4-6.5) 01/06/20 04:22 Lymph # (Auto) 2.06 K/uL (1.2-3.4) 01/06/20 04:22 [place] # (Auto) 0.73 K/uL (0.11-0.59) H 01/06/20 04:22 Eos # (Auto) 0.13 K/uL (0-0.5) 01/06/20 04:22 Baso # (Auto) 0.02 K/uL (0-0.2) 01/06/20 04:22 Immature Gran # (Auto) 0.08 K/uL (0.00-0.02) H 01/06/20 04:22 Toxic Granulation Occasional 01/06/20 04:22 Toxic Vacuolation 1+ 01/03/20 16:35 Dohle Bodies 1+ 01/05/20 05:24 Platelet Estimate Decreased (Normal) L 01/05/20 05:24 Echinocytes 1+ 01/06/20 04:22 ESR 73 mm/hr (0-21) H 01/03/20 16:35 PT 12.5 Seconds (9.0-12.0) H 01/06/20 04:22 INR 1.2 (0.9-1.1) H 01/06/20 04:22 APTT 33.6 Seconds (21.0-31.0) H 01/03/20 16:35 PTT Ratio 1.2 01/03/20 16:35 Fibrinogen 434 mg/dl (184-400) H 01/03/20 22:59 Fibrinogen Cancelled 01/03/20 22:59 Fibrin Degrad Products 10-40 mcg/ml (<10) H 01/03/20 22:59 D-Dimer 3110 ug/L FEU (0-500) H* 01/03/20 22:59 Sodium 139 mmol/L (136-145) 01/06/20 04:22 Potassium 3.6 mmol/L (3.5-5.1) 01/06/20 04:22 Chloride 110 mmol/L (98-107) H 01/06/20 04:22 Carbon Dioxide 25 mmol/L (21-32) 01/06/20 04:22 Anion Gap 4.0 (3-11) 01/06/20 04:22 BUN 3 mg/dl (7-18) L D 01/06/20 04:22 Creatinine 0.56 mg/dl (0.6-1.2) L 01/06/20 04:22 Est Cr Clr Drug Dosing 135.8 ml/min 01/06/20 04:22 Est GFR ( Amer) 148.1 01/06/20 04:22 Est GFR (Non-Af Amer) 127.8 01/06/20 04:22 BUN/Creatinine Ratio 5.2 (10-20) L 01/06/20 04:22 Glucose 114 mg/dl (70-99) H 01/06/20 04:22 POC Glucose 159 mg/dl (70-99) H 01/05/20 17:41 Lactate 1.5 mmol/L (0.4-2.0) 01/03/20 21:01 Calcium 6.7 mg/dl (8.5-10.1) L 01/06/20 04:22 Phosphorus 2.6 mg/dl (2.5-4.9) 01/06/20 04:22 Magnesium 1.4 mg/dl (1.8-2.4) L 01/06/20 04:22 Total Bilirubin 0.5 mg/dl (0.2-1) 01/06/20 04:22 Direct Bilirubin 0.2 mg/dl (0-0.2) 01/06/20 04:22 AST 30 U/L (15-37) 01/06/20 04:22 ALT 36 U/L (12-78) 01/06/20 04:22 Alkaline Phosphatase 77 U/L (45-117) 01/06/20 04:22 Troponin I < 0.015 ng/ml (0-0.045) 01/03/20 16:35 C-Reactive Protein 21.30 mg/dl (0-0.29) H 01/03/20 16:35 Total Protein 5.2 gm/dl (6.4-8.2) L 01/06/20 04:22 Albumin 1.5 gm/dl (3.4-5.0) L 01/06/20 04:22 Globulin 3.7 gm/dl (2.5-4.0) 01/06/20 04:22 Albumin/Globulin Ratio 0.4 (0.9-2) L 01/06/20 04:22 Procalcitonin 2.38 ng/ml (0-0.5) H 01/03/20 16:35 TSH 1.640 uIu/ml (0.300-4.500) 01/03/20 16:35 HCG, Qual Negative (Negative) 01/03/20 16:35 Random Cortisol 41.64 mcg/dl 01/03/20 19:41 Urine Color Yellow 01/03/20 20:15 Urine Appearance Slightly Cloudy (Clear) 01/03/20 20:15 Urine pH 6.5 (4.5-7.5) 01/03/20 20:15 Ur Specific [place] <= 1.005 (1.000-1.030) 01/03/20 20:15 Urine Protein Negative (Negative) 01/03/20 20:15 Urine Glucose (UA) Negative (Negative) 01/03/20 20:15 Urine Ketones Negative (Negative) 01/03/20 20:15 Urine Blood Trace (Negative) H 01/03/20 20:15 Urine Nitrite Negative (Negative) 01/03/20 20:15 Urine Bilirubin Negative (Negative) 01/03/20 20:15 Urine Urobilinogen Negative (Negative) 01/03/20 20:15 Ur Leukocyte Esterase 2+ (Negative) H 01/03/20 20:15 Urine RBC 0-4 /hpf (0-4) 01/03/20 20:15 Urine WBC >30 /hpf (0-5) H 01/03/20 20:15 Ur Epithelial Cells >30 /lpf (0-5) H 01/03/20 20:15 Urine Bacteria 2+ (Negative) H 01/03/20 20:15 Urine Trichomonas Present (None Prsent) H 01/03/20 20:15 Nasal Screen MRSA (PCR) Positive (Negative) A 01/03/20 22:00 Stl C. diff Tox B Gene Negative Cdiff Gene (Neg) 01/05/20 14:34 Vancomycin Trough 6.5 mcg/ml (See Comment) 01/05/20 05:24 Salicylates < 1.7 mg/dl (2.8-20) L 01/03/20 19:41 Urine Opiates Screen Pos (Neg) H 01/03/20 20:15 Ur Methadone, Qual Neg (Neg) 01/03/20 20:15 Acetaminophen 6 ug/ml (10-30) L 01/03/20 19:41 Urine Barbiturates Neg (Neg) 01/03/20 20:15 Ur Phencyclidine (PCP) Neg (Neg) 01/03/20 20:15 U Amphetamin/Meth Scrn Pos (Neg) H 01/03/20 20:15 MDMA (Ecstasy) Screen Neg (Neg) 01/03/20 20:15 U Benzodiazepines Scrn Neg (Neg) 01/03/20 20:15 Ur Cocaine Metabolite Neg (Neg) 01/03/20 20:15 U Marijuana (THC) Screen Neg (Neg) 01/03/20 20:15 COVID-19 Eval Order Covid19 Done at [facility] 01/03/20 22:00 COVID-19 PCR NEGATIVE (Negative) 01/03/20 22:00 Hepatitis A IgM Ab NON-REACTIVE (NON-REACTIVE) 01/03/20 19:41 Hep Bs Antigen Neg (Neg) 01/03/20 19:41 Hep B Core IgM Ab NON-REACTIVE (NON-REACTIVE) 01/03/20 19:41 Hepatitis C Antibody Neg (Neg) 01/03/20 19:41 HIV 1&2 Ab/P24 Ag 4thGn Neg (Neg) 01/04/20 04:31 Bld Cult Staph aureus PCR Positive (Negative) A 01/03/20 16:35 Blood Culture MRSA PCR Positive (Negative) A* 01/03/20 16:35 Resident Activity Tracking Resident Involvement: Resident Care Provided Care Provided: Adult Hospital Medicine
[2020-01-06] MEDS ORDERED: SODIUM CHLORIDE 0.9% 500 ML IV SCH (11:00)
[2020-01-06] MEDS ORDERED: KETOROLAC TROMETHAMINE 15 MG/ML VIAL IV PRN (11:09)
[2020-01-06] MEDS ORDERED: METHADONE HCL 10 MG TAB PO SCH (11:30)
--- NOTE | 2020-01-06 13:06 | Electrocardiogram Report ---
Test Reason : Blood Pressure : / mmHG Vent. Rate : 110 BPM Atrial Rate : 110 BPM P-R Int : 140 ms QRS Dur : 090 ms QT Int : 342 ms P-R-T Axes : 037 027 052 degrees QTc Int : 462 ms Sinus tachycardia Otherwise normal ECG When compared with ECG of 05-JAN-2020 15:15, No significant change was found Confirmed by Paul Koehler ([id number]) on 01/06/2020 1:06:43 PM Referred By: REFERRED SELF Confirmed By:Paul Koehler
[2020-01-06] MEDS: METHADONE HCL 5 MG TAB PO SCH ×2 (13:11→17:26)
[2020-01-06] MEDS: ENOXAPARIN INJ 40 MG/0.4 ML SYR SQ SCH (13:53)
[2020-01-06] MEDS: ACETAMINOPHEN 500 MG TAB PO SCH ×2 (15:47→22:04)
[2020-01-06] MEDS: LIDOCAINE 5% 1 PATCH TD SCH (17:27)
[2020-01-06] MEDS ORDERED: MELATONIN 3 MG TAB PO PRN (18:26)
--- NOTE | 2020-01-06 19:18 | Billing Data ---
Date of Service January 06, 2020 Coding Level of Care Code 18958 Subseq Hosp Care Lvl 3
[2020-01-06 22:59] LABS: Amphetamine Urine, Confirm 318 ng/mL (<250); Codeine Urine NEGATIVE ng/mL (<50); Hydrocodone Urine NEGATIVE ng/mL (<50); Hydromor Urine NEGATIVE ng/mL (<50); Methamphetamine, Ur Confirm 892 ng/mL (<250); Morphine Urine 442 ng/mL (<50); Norhydrocodone Conf Ur NEGATIVE ng/mL (<50); Noroxycodone Urine NEGATIVE ng/mL (<50); Oxycodone Urine NEGATIVE ng/mL (<50); Oxymorph Urine NEGATIVE ng/mL (<50)
[2020-01-07] MEDS: METHADONE HCL 5 MG TAB PO SCH ×5 (00:31→23:49)
[2020-01-07] MEDS: CEFTAROLINE FOSAMIL ACETATE 600 MG in SODIUM CHLORIDE 0.9% 250 ML IV SCH ×2 (02:35→09:47)
[2020-01-07] MEDS: ACETAMINOPHEN 500 MG TAB PO SCH ×3 (04:27→20:35)
[2020-01-07] MEDS: D5W AND 1/2NSS + 20MEQ KCL 20 MEQ/1,000 ML BAG IV SCH (05:20)
[2020-01-07 06:42] LABS: Basophils # (auto) 0.01 K/uL (0-0.2); Basophils % (auto) 0.1 %; Eosinophils # (auto) 0.27 K/uL (0-0.5); Eosinophils % (auto) 3.8 %; Hematocrit (blood only) 29.5 % (37-47); Hemoglobin 9.9 g/dL (12.0-16.0); Immature Granulocytes % (auto) 1.4 %; Lymphocytes # (auto) 1.94 K/uL (1.2-3.4); Lymphocytes % (auto) 27.4 %; Mean Corpuscular Hemoglobin 26.6 pg (25-34); Mean Corpuscular Hgb Conc 33.6 g/dL (32-36); Mean Corpuscular Volume 79.3 fL (80-100); Monocytes # (auto) 0.59 K/uL (0.11-0.59); Monocytes % (auto) 8.3 %; Neutrophils # (auto) 4.18 K/uL (1.4-6.5); Platelet Count 225 K/uL (130-400); RDW Coefficient of Variation 16.1 % (11.5-14.5); RDW Standard Deviation 47.2 fL (36.4-46.3); Red Blood Count 3.72 M/uL (4.2-5.4); White Blood Count 7.09 K/uL (4.8-10.8)
[2020-01-07 07:12] LABS: Alanine Aminotransferase 26 U/L (12-78); Albumin Level 1.5 gm/dl (3.4-5.0); Aspartate Aminotransferase 19 U/L (15-37); BUN Creatinine Ratio 3.5 (10-20); Blood Urea Nitrogen 2 mg/dl (7-18); Calcium 6.6 mg/dl (8.5-10.1); Carbon Dioxide 24 mmol/L (21-32); Chloride 114 mmol/L (98-107); Creatinine Clr Calc Pharmacy 187.5 ml/min; Est GFR (African American) > 150.0; Est GFR (Non-African American) 137.3; Glucose 94 mg/dl (70-99); Magnesium 1.9 mg/dl (1.8-2.4); Potassium 3.9 mmol/L (3.5-5.1); Sodium 142 mmol/L (136-145)
[2020-01-07 07:14] LABS: Albumin Globulin Ratio 0.4 (0.9-2); Alkaline Phosphatase 68 U/L (45-117); Bilirubin,Total 0.4 mg/dl (0.2-1); Globulin 4.1 gm/dl (2.5-4.0); Total Protein 5.6 gm/dl (6.4-8.2)
[2020-01-07] MEDS: NSS + 20MEQ KCL 20 MEQ/1,000 ML BAG IV SCH ×2 (08:23→20:12)
[2020-01-07] MEDS: NYSTATIN SUSP 500,000 U/5 ML UDC PO SCH ×4 (08:26→20:33)
[2020-01-07] MEDS: NICOTINE 7 MG/24 HR TDSY TD SCH (08:27)
[2020-01-07] MEDS: PANTOprazole 40 MG TAB PO SCH (08:28)
[2020-01-07] MEDS: ONDANSETRON INJ 2 MG/ML 2 ML VIAL IV PRN (09:21)
[2020-01-07] MEDS: KETOROLAC TROMETHAMINE 15 MG/ML VIAL IV PRN ×3 (09:21→20:27)
[2020-01-07] MEDS: PANTOprazole 40 MG in SYRINGE 0 ML IV SCH (09:37)
--- NOTE | 2020-01-07 10:30 | Hospitalist Progress Note ---
Date of Service January 07, 2020 Assessment & Plan (1) Drug abuse, IV: 29-year-old female with history of prior Suboxone use and IV drug use with heroin presents with 2 weeks of fevers, chills, myalgias, hand and foot pain found to be in septic shock likely secondary to endocarditis with showering emboli. Sepsis + Endocarditis -off pressors -IVF NSS@75 mls/hr -painful lesions on her feet are highly suspicious for Osler's nodes from acute infectious endocarditis vs. nontender janeway lesions on her hands -CTA chest consistent with infectious process suspicious for septic emboli, negative for PE -Echocardiogram: Mild to moderate tricuspid regurg with no visible vegetation but not ruled out. visible 2-3mm vegetation on mitral valve. KILEY not likely to give additional information regarding vegetations at this time, and intervention with replacing valve if indicated not likely to happen prior to patient clearing endocarditis. Does not clinically paint picture of someone with florid tricuspid and mitral valve regurgitation given lack of pulmonary and peripheral edema. Would postpone KILEY until clearance of infection. -Blood cultures growing MRSA, switched from ceftaroline to daptomycin for once a day, targeted treatment - appreciate recommendations to switch from ceftaroline and investigate KILEY from [facility] ID IV Drug abuse Patient states that she was on Suboxone previously but ran out and thus turned to IV heroin. She is interested in continuing with methadone after hospital stay and getting off IV drugs. Methadone 15 mg every 6 hours as needed - Tylenol 1000 mg Q8H, Toradol 15 mg Q6H for pain control -HIV testing negative -Hep B antigen negative, hep B IgM pending . Hep C antibody negative -Tox screen : Positive for opioids and methamphetamine. -Will need social work assistance, psych services, drug/alcohol rehab, etc following this admission. Appreciate assistance - she will likely need to be discharged to get dalbavancin to finish out antibiotic coverage. Given her lack of PCP coverage or local ID follow up, will see Dr. Han from [facility] for continuity and close follow up Elevated liver enzymes-mild In setting of hypotension may have shock liver We will trend daily Thrombocytopenia - likely secondary to sepsis FEN/GI: NSS@75 DVT prophylaxis: lovenox Full code Dispo: medsurg Admission and Anticipated Discharge Date Admission Date: January 03, 2020 Supervising Physician Co-Signing Physician Notes I personally examined the patient and verified all laura points of history and exam, discussed case, and agree with decision making with Dr Han still wtih chest pain, although more conversive than before. relates wanting to be done w heroin, feels like methadone is helping. feels somewhat trapped discussed fci course of treatment for endocarditis. vitals noted nad heent nc at mmm breathing unlabored. no accessory muscles good effort skin no rashes no pallor or icterus endocarditis -MRSA - change to dapto for now, likely try to transition to dalvance for outpt treatment. continue methadone, adjust other prns to try to help w pain, also nonpharmacologic should help. stable for medical. Subjective continues to have body-wide pain. methadone takes off edge, but doesn't help resolve much. constantly nauseous, had 2 episodes of emesis this morning after breakfast. Review of Systems Constitutional: + sweats, + body aches and + weakness Respiratory: + pain on inspiration; no cough and no chest congestion Cardiovascular: + chest pain Gastrointestinal: + abdominal pain, + bloating, + nausea and + vomiting; no cramping, no constipation and no diarrhea/loose stools Neurologic: no tremor(s), no headache(s) and no confusion Physical Exam Constitutional: Thin appearing female. uncomfortable, teary in bed. Eyes: PERRL, conjunctivae normal, anicteric sclerae ENMT: external ear and nose normal, oropharynx normal Neck: normal visual inspection Respiratory: normal respiratory effort, lungs clear to auscultation Cardiovascular: Tachycardic. Regular rhythm. 3/6 murmur at sternal border Gastrointestinal (Abdomen): normal bowel sounds, soft, nontender, no hepatosplenomegaly Musculoskeletal: no cyanosis or clubbing, extremities motor strength 5/5 Skin: +janeway lesions on hands, osler nodes on elbow and soles of feet Neurologic: PERRL, EOMI, accommodation nl, no face palsy, no dysarthria Results & Data Results & Data ([facility]) Vital Signs (Past 12 Hours) Vital Signs Temp Pulse Resp BP Pulse Ox 01/07/20 08:03 37.0 C 87 18 111/73 94 01/07/20 05:01 36.9 C 98 H 20 96/60 L 91 01/06/20 23:51 36.7 C 126 H 20 104/66 95 Laboratory Results WBC 7.09 K/uL (4.8-10.8) 01/07/20 05:59 RBC 3.72 M/uL (4.2-5.4) L 01/07/20 05:59 Hgb 9.9 g/dL (12.0-16.0) L 01/07/20 05:59 Hct 29.5 % (37-47) L 01/07/20 05:59 MCV 79.3 fL (80-100) L 01/07/20 05:59 MCH 26.6 pg (25-34) 01/07/20 05:59 MCHC 33.6 g/dL (32-36) 01/07/20 05:59 RDW Std Deviation 47.2 fL (36.4-46.3) H 01/07/20 05:59 RDW Coeff of Liliya 16.1 % (11.5-14.5) H 01/07/20 05:59 Plt Count 225 K/uL (130-400) 01/07/20 05:59 MPV 10.0 fL (7.4-10.4) 01/07/20 05:59 Immature Gran % (Auto) 1.4 % 01/07/20 05:59 Neut % (Auto) 59.0 % 01/07/20 05:59 Lymph % (Auto) 27.4 % 01/07/20 05:59 [place] % (Auto) 8.3 % 01/07/20 05:59 Eos % (Auto) 3.8 % 01/07/20 05:59 Baso % (Auto) 0.1 % 01/07/20 05:59 Neut # (Auto) 4.18 K/uL (1.4-6.5) 01/07/20 05:59 Lymph # (Auto) 1.94 K/uL (1.2-3.4) 01/07/20 05:59 [place] # (Auto) 0.59 K/uL (0.11-0.59) 01/07/20 05:59 Eos # (Auto) 0.27 K/uL (0-0.5) 01/07/20 05:59 Baso # (Auto) 0.01 K/uL (0-0.2) 01/07/20 05:59 Immature Gran # (Auto) 0.10 K/uL (0.00-0.02) H 01/07/20 05:59 Toxic Granulation Occasional 01/06/20 04:22 Toxic Vacuolation 1+ 01/03/20 16:35 Dohle Bodies 1+ 01/05/20 05:24 Platelet Estimate Decreased (Normal) L 01/05/20 05:24 Echinocytes 1+ 01/06/20 04:22 ESR 73 mm/hr (0-21) H 01/03/20 16:35 PT 12.5 Seconds (9.0-12.0) H 01/06/20 04:22 INR 1.2 (0.9-1.1) H 01/06/20 04:22 APTT 33.6 Seconds (21.0-31.0) H 01/03/20 16:35 PTT Ratio 1.2 01/03/20 16:35 Fibrinogen 434 mg/dl (184-400) H 01/03/20 22:59 Fibrinogen Cancelled 01/03/20 22:59 Fibrin Degrad Products 10-40 mcg/ml (<10) H 01/03/20 22:59 D-Dimer 3110 ug/L FEU (0-500) H* 01/03/20 22:59 Sodium 142 mmol/L (136-145) 01/07/20 05:59 Potassium 3.9 mmol/L (3.5-5.1) 01/07/20 05:59 Chloride 114 mmol/L (98-107) H 01/07/20 05:59 Carbon Dioxide 24 mmol/L (21-32) 01/07/20 05:59 Anion Gap 4.0 (3-11) 01/07/20 05:59 BUN 2 mg/dl (7-18) L 01/07/20 05:59 Creatinine 0.45 mg/dl (0.6-1.2) L 01/07/20 05:59 Est Cr Clr Drug Dosing 187.5 ml/min 01/07/20 05:59 Est GFR ( Amer) > 150.0 01/07/20 05:59 Est GFR (Non-Af Amer) 137.3 01/07/20 05:59 BUN/Creatinine Ratio 3.5 (10-20) L 01/07/20 05:59 Glucose 94 mg/dl (70-99) 01/07/20 05:59 POC Glucose 159 mg/dl (70-99) H 01/05/20 17:41 Lactate 1.5 mmol/L (0.4-2.0) 01/03/20 21:01 Calcium 6.6 mg/dl (8.5-10.1) L 01/07/20 05:59 Phosphorus 3.0 mg/dl (2.5-4.9) 01/07/20 05:59 Magnesium 1.9 mg/dl (1.8-2.4) 01/07/20 05:59 Total Bilirubin 0.4 mg/dl (0.2-1) 01/07/20 05:59 Direct Bilirubin 0.2 mg/dl (0-0.2) 01/06/20 04:22 AST 19 U/L (15-37) 01/07/20 05:59 ALT 26 U/L (12-78) 01/07/20 05:59 Alkaline Phosphatase 68 U/L (45-117) 01/07/20 05:59 Troponin I < 0.015 ng/ml (0-0.045) 01/03/20 16:35 C-Reactive Protein 21.30 mg/dl (0-0.29) H 01/03/20 16:35 Total Protein 5.6 gm/dl (6.4-8.2) L 01/07/20 05:59 Albumin 1.5 gm/dl (3.4-5.0) L 01/07/20 05:59 Globulin 4.1 gm/dl (2.5-4.0) H 01/07/20 05:59 Albumin/Globulin Ratio 0.4 (0.9-2) L 01/07/20 05:59 Procalcitonin 2.38 ng/ml (0-0.5) H 01/03/20 16:35 TSH 1.640 uIu/ml (0.300-4.500) 01/03/20 16:35 HCG, Qual Negative (Negative) 01/03/20 16:35 Random Cortisol 41.64 mcg/dl 01/03/20 19:41 Urine Color Yellow 01/03/20 20:15 Urine Appearance Slightly Cloudy (Clear) 01/03/20 20:15 Urine pH 6.5 (4.5-7.5) 01/03/20 20:15 Ur Specific [place] <= 1.005 (1.000-1.030) 01/03/20 20:15 Urine Protein Negative (Negative) 01/03/20 20:15 Urine Glucose (UA) Negative (Negative) 01/03/20 20:15 Urine Ketones Negative (Negative) 01/03/20 20:15 Urine Blood Trace (Negative) H 01/03/20 20:15 Urine Nitrite Negative (Negative) 01/03/20 20:15 Urine Bilirubin Negative (Negative) 01/03/20 20:15 Urine Urobilinogen Negative (Negative) 01/03/20 20:15 Ur Leukocyte Esterase 2+ (Negative) H 01/03/20 20:15 Urine RBC 0-4 /hpf (0-4) 01/03/20 20:15 Urine WBC >30 /hpf (0-5) H 01/03/20 20:15 Ur Epithelial Cells >30 /lpf (0-5) H 01/03/20 20:15 Urine Bacteria 2+ (Negative) H 01/03/20 20:15 Urine Trichomonas Present (None Prsent) H 01/03/20 20:15 Nasal Screen MRSA (PCR) Positive (Negative) A 01/03/20 22:00 Stl C. diff Tox B Gene Negative Cdiff Gene (Neg) 01/05/20 14:34 Vancomycin Trough 6.5 mcg/ml (See Comment) 01/05/20 05:24 Salicylates < 1.7 mg/dl (2.8-20) L 01/03/20 19:41 Urine Opiates Screen Pos (Neg) H 01/03/20 20:15 U Codeine Confrm GC/MS NEGATIVE ng/mL (<50) 01/03/20 20:15 Ur Morphine (GC/MS) 442 ng/mL (<50) H 01/03/20 20:15 Ur Hydrocodone (GC/MS) NEGATIVE ng/mL (<50) 01/03/20 20:15 Ur Norhydrocodone NEGATIVE ng/mL (<50) 01/03/20 20:15 Ur Noroxycodone NEGATIVE ng/mL (<50) 01/03/20 20:15 Urine Oxycodone (GC/MS) NEGATIVE ng/mL (<50) 01/03/20 20:15 U Oxymorphone GC/MS NEGATIVE ng/mL (<50) 01/03/20 20:15 Ur Methadone, Qual Neg (Neg) 01/03/20 20:15 Ur Hydromorphone (GC/MS) NEGATIVE ng/mL (<50) 01/03/20 20:15 Acetaminophen 6 ug/ml (10-30) L 01/03/20 19:41 Urine Barbiturates Neg (Neg) 01/03/20 20:15 Ur Phencyclidine (PCP) Neg (Neg) 01/03/20 20:15 U Amphetamines Confirm 318 ng/mL (<250) H 01/03/20 20:15 U Amphetamin/Meth Scrn Pos (Neg) H 01/03/20 20:15 U Methamphetamin Confrm 892 ng/mL (<250) H 01/03/20 20:15 MDMA (Ecstasy) Screen Neg (Neg) 01/03/20 20:15 U Benzodiazepines Scrn Neg (Neg) 01/03/20 20:15 Ur Cocaine Metabolite Neg (Neg) 01/03/20 20:15 U Marijuana (THC) Screen Neg (Neg) 01/03/20 20:15 Drug Screen Comment SEE NOTE 01/03/20 20:15 COVID-19 Eval Order Covid19 Done at [facility] 01/03/20 22:00 COVID-19 PCR NEGATIVE (Negative) 01/03/20 22:00 Hepatitis A IgM Ab NON-REACTIVE (NON-REACTIVE) 01/03/20 19:41 Hep Bs Antigen Neg (Neg) 01/03/20 19:41 Hep B Core IgM Ab NON-REACTIVE (NON-REACTIVE) 01/03/20 19:41 Hepatitis C Antibody Neg (Neg) 01/03/20 19:41 HIV 1&2 Ab/P24 Ag 4thGn Neg (Neg) 01/04/20 04:31 Bld Cult Staph aureus PCR Positive (Negative) A 01/03/20 16:35 Blood Culture MRSA PCR Positive (Negative) A* 01/03/20 16:35 Resident Activity Tracking Resident Involvement: Resident Care Provided Care Provided: Adult Hospital Medicine
[2020-01-07] MEDS: ENOXAPARIN INJ 40 MG/0.4 ML SYR SQ SCH (12:02)
[2020-01-07] MEDS ORDERED: DAPTOMYCIN CONSULT ACTIVE PRN (14:04)
[2020-01-07] MEDS ORDERED: DAPTOmycin 475 MG in SYRINGE 0 ML IV SCH (14:30)
[2020-01-07] MEDS ORDERED: DAPTOmycin 100 MG in SYRINGE 0 ML IV ONE (15:00)
[2020-01-07] MEDS: ONDANSETRON INJ 2 MG/ML 2 ML VIAL IV SCH ×2 (15:23→20:27)
[2020-01-07] MEDS: LIDOCAINE 5% 1 PATCH TD SCH (17:12)
--- NOTE | 2020-01-07 18:51 | Billing Data ---
Date of Service January 07, 2020 Coding Level of Care Code 92961 Subseq Hosp Care Lvl 3
[2020-01-07] MEDS: GABAPENTIN 400 MG CAP PO SCH (21:21)
[2020-01-08] MEDS: NSS + 20MEQ KCL 20 MEQ/1,000 ML BAG IV SCH ×3 (01:13→19:35)
[2020-01-08] MEDS: ACETAMINOPHEN 500 MG TAB PO SCH ×3 (03:31→19:38)
[2020-01-08] MEDS: ONDANSETRON INJ 2 MG/ML 2 ML VIAL IV SCH ×4 (03:31→21:16)
[2020-01-08] MEDS: METHADONE HCL 5 MG TAB PO SCH ×4 (05:43→23:38)
--- NOTE | 2020-01-08 06:57 | XRay Report ---
XR chest 1V portable CLINICAL HISTORY: chest pain/sob COMPARISON STUDY: Chest CT January 03, 2020. Chest radiograph January 06, 2020. FINDINGS: Right internal jugular central line has been removed. There is no pneumothorax. Small left pleural effusion is noted. There may be a trace right pleural effusion. Left basilar opacity has slig htly improved. The persistent nodular airspace opacities within the lungs. There is no evidence for p ulmonary edema. Cardiac size is stable. Mediastinal contours are stable. IMPRESSION: 1. Persistent nodular bilateral airspace opacities which favor an infectious process. Slight improvem ent in left lower lobe airspace opacity. 2. Small left and trace right pleural effusions. ACT 112: Negative or not required by law. Electronically signed by: Del Guillen M.D. 01/08/2020 6:56 AM
[2020-01-08 07:39] LABS: Creatinine Clr Calc Pharmacy 122.6 ml/min; Est GFR (African American) 143.2; Est GFR (Non-African American) 123.6
[2020-01-08 08:22] LABS: Basophils # (auto) 0.01 K/uL (0-0.2); Basophils % (auto) 0.2 %; Eosinophils # (auto) 0.33 K/uL (0-0.5); Eosinophils % (auto) 5.4 %; Hematocrit (blood only) 27.6 % (37-47); Hemoglobin 9.1 g/dL (12.0-16.0); Immature Granulocytes # (auto) 0.07 K/uL (0.00-0.02); Immature Granulocytes % (auto) 1.1 %; Lymphocytes # (auto) 1.74 K/uL (1.2-3.4); Lymphocytes % (auto) 28.5 %; Mean Corpuscular Hemoglobin 27.2 pg (25-34); Mean Corpuscular Volume 82.6 fL (80-100); Mean Platelet Volume 10.2 fL (7.4-10.4); Monocytes # (auto) 0.44 K/uL (0.11-0.59); Monocytes % (auto) 7.2 %; Neutrophils # (auto) 3.52 K/uL (1.4-6.5); Neutrophils % (auto) 57.6 %; Platelet Count 247 K/uL (130-400); RDW Coefficient of Variation 16.6 % (11.5-14.5); RDW Standard Deviation 50.3 fL (36.4-46.3); Red Blood Count 3.34 M/uL (4.2-5.4); White Blood Count 6.11 K/uL (4.8-10.8)
[2020-01-08 08:29] LABS: Albumin Globulin Ratio 0.4 (0.9-2); Albumin Level 1.5 gm/dl (3.4-5.0); BUN Creatinine Ratio 5.3 (10-20); Bilirubin,Total 0.2 mg/dl (0.2-1); Calcium 7.6 mg/dl (8.5-10.1); Creatinine Clr Calc Pharmacy 122.6 ml/min; Est GFR (African American) 143.2; Est GFR (Non-African American) 123.6; Potassium 4.4 mmol/L (3.5-5.1); Total Protein 5.5 gm/dl (6.4-8.2)
[2020-01-08] MEDS: PANTOprazole 40 MG TAB PO SCH (09:00)
[2020-01-08] MEDS ORDERED: IBUPROFEN 800 MG TAB PO STA (09:48)
[2020-01-08] MEDS: NICOTINE 7 MG/24 HR TDSY TD SCH (10:00)
[2020-01-08] MEDS: NYSTATIN SUSP 500,000 U/5 ML UDC PO SCH ×4 (10:00→19:39)
--- NOTE | 2020-01-08 10:27 | Hospitalist Progress Note ---
Date of Service January 08, 2020 Assessment & Plan (1) Drug abuse, IV: 29-year-old female with history of prior Suboxone use and IV drug use with heroin presents with 2 weeks of fevers, chills, myalgias, hand and foot pain found to be in septic shock likely secondary to endocarditis with showering emboli. Endocarditis with MRSA Bacteremia -IVF NSS@75 mls/hr -painful lesions on her feet are highly suspicious for Osler's nodes from acute infectious endocarditis vs. nontender janeway lesions on her hands -CTA chest consistent with infectious process suspicious for septic emboli, negative for PE -Echocardiogram: Mild to moderate tricuspid regurg with no visible vegetation but not ruled out. visible 2-3mm vegetation on mitral valve. KILEY not likely to give additional information regarding vegetations at this time, and intervention with replacing valve if indicated not likely to happen prior to patient clearing endocarditis. Does not clinically paint picture of someone with florid tricuspid and mitral valve regurgitation given lack of pulmonary and peripheral edema. Would postpone KILEY until clearance of infection. -Blood cultures growing MRSA, daily daptomycin IV Drug abuse Patient states that she was on Suboxone previously but ran out and thus turned to IV heroin. She is interested in continuing with methadone after hospital stay and getting off IV drugs. Methadone 15 mg every 6 hours as needed - Tylenol 1000 mg Q8H, Toradol 15 mg Q6H for pain control, 400 mg Gabapentin QHS -HIV testing negative, Hepatitis panel negative -Tox screen : Positive for opioids and methamphetamine. -Will need social work assistance, psych services, drug/alcohol rehab, etc following this admission. Appreciate CM assistance - she will likely need to be discharged to get dalbavancin to finish out antibiotic coverage. Given her lack of PCP coverage or local ID follow up, will see Dr. Han from [facility] for continuity and close follow up - following up with local methadone clinic on discharge, appointment 01/15, Anxiety - extensive history of difficult family situations, foster care, abandonment etc. - started on lexapro 20 mg daily today - repeat EKG showing QTc of 429, low concern for QT prolongation FEN/GI: NSS@75, regular diet, zofran for nausea scheduled DVT prophylaxis: lovenox Full code Dispo: medsurg (2) Bacteremia due to Gram-positive bacteria: (3) Septic embolism: (4) Opiate withdrawal: (5) Endocarditis: (6) Abnormal LFTs: (7) Septic shock: (8) Coagulopathy: Admission and Anticipated Discharge Date Admission Date: January 03, 2020 Supervising Physician Co-Signing Physician Notes I personally examined the patient and verified all laura points of history and exam, discussed case, and agree with decision making with Dr Han still wtih chest pain, fairly severe, but seems objectively more tolerable. lots of anxiety today. called local methadone clinic - they have availability - encouraged pt to call to get scheduled. 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 extensive discussions on life circumstances - was foster care and really has no family. 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 does not want to stay in her current life, and does seem at least aware that things could change. vitals noted nad heent nc at mmm breathing unlabored. no accessory muscles good effort skin no rashes no pallor or icterus endocarditis -MRSA - continue dapto. case management working on dalvance; if this is unable to be set up, then dapto daily as backup plan. anxiety - offered support and empathy, as well as some visiting life goals/setting soemthing to strive for; she offered appreciation of this Subjective She continues to have body-wide pain, mostly focused in left upper chest now, worse with deep inspiration. improving overall function, appreciates being able to walk to bathroom and shower on her own. States that the pain in general is better but toradol isn't helping much. Review of Systems Constitutional: + body aches and + weakness; no fever and no chills Respiratory: + pain on inspiration; no cough and no dyspnea Cardiovascular: + chest pain; no dyspnea at rest, no palpitations and no edema Gastrointestinal: + abdominal pain and + nausea; no vomiting, no cramping and no diarrhea/loose stools Integumentary: + new lesions and + sores Physical Exam Constitutional: + thin and cooperative Eyes: PERRL, conjunctivae normal, anicteric sclerae ENMT: external ear and nose normal, oropharynx normal Neck: normal visual inspection Respiratory: normal respiratory effort, lungs clear to auscultation normal respiratory effort and able to speak in complete sentences; no respiratory distress, no labored breathing, no retractions, no cough and no audible wheezes Auscultation: lungs clear to auscultation bilaterally; no crackles, no rales, no rhonchi and no wheezes Cardiovascular: Rate/Rhythm: regular rate and regular rhythm Heart Sounds: normal S1 and normal S2; no gallop, no murmur and no cardiac rub Vessels: posterior tibial pulses present Extremities: no pedal edema and no edema Gastrointestinal (Abdomen): normal bowel sounds, soft, nontender, no hepatosplenomegaly Inspection/Auscultation: abdomen normal to inspection and normal bowel sounds; abdomen not distended Percussion/Palpation: + abdomen tender and abdomen soft; no guarding, abdomen not rigid and no abdominal mass Musculoskeletal: no cyanosis or clubbing, extremities motor strength 5/5 Skin: +Osler node on right elbow, painful lesions on base of foot, janeway lesions on arms Neurologic: PERRL, EOMI, accommodation nl, no face palsy, no dysarthria Results & Data Results & Data ([facility]) Vital Signs (Past 12 Hours) Vital Signs Temp Pulse Resp BP Pulse Ox 01/08/20 01:25 37.0 C 105 H 18 105/69 95 01/07/20 23:10 36.7 C 80 20 105/69 97 Laboratory Results WBC 6.11 K/uL (4.8-10.8) 01/08/20 06:48 RBC 3.34 M/uL (4.2-5.4) L 01/08/20 06:48 Hgb 9.1 g/dL (12.0-16.0) L 01/08/20 06:48 Hct 27.6 % (37-47) L 01/08/20 06:48 MCV 82.6 fL (80-100) 01/08/20 06:48 MCH 27.2 pg (25-34) 01/08/20 06:48 MCHC 33.0 g/dL (32-36) 01/08/20 06:48 RDW Std Deviation 50.3 fL (36.4-46.3) H 01/08/20 06:48 RDW Coeff of Liliya 16.6 % (11.5-14.5) H 01/08/20 06:48 Plt Count 247 K/uL (130-400) 01/08/20 06:48 MPV 10.2 fL (7.4-10.4) 01/08/20 06:48 Immature Gran % (Auto) 1.1 % 01/08/20 06:48 Neut % (Auto) 57.6 % 01/08/20 06:48 Lymph % (Auto) 28.5 % 01/08/20 06:48 [place] % (Auto) 7.2 % 01/08/20 06:48 Eos % (Auto) 5.4 % 01/08/20 06:48 Baso % (Auto) 0.2 % 01/08/20 06:48 Neut # (Auto) 3.52 K/uL (1.4-6.5) 01/08/20 06:48 Lymph # (Auto) 1.74 K/uL (1.2-3.4) 01/08/20 06:48 [place] # (Auto) 0.44 K/uL (0.11-0.59) 01/08/20 06:48 Eos # (Auto) 0.33 K/uL (0-0.5) 01/08/20 06:48 Baso # (Auto) 0.01 K/uL (0-0.2) 01/08/20 06:48 Immature Gran # (Auto) 0.07 K/uL (0.00-0.02) H 01/08/20 06:48 Toxic Granulation Occasional 01/06/20 04:22 Toxic Vacuolation 1+ 01/03/20 16:35 Dohle Bodies 1+ 01/05/20 05:24 Platelet Estimate Decreased (Normal) L 01/05/20 05:24 Echinocytes 1+ 01/06/20 04:22 ESR 73 mm/hr (0-21) H 01/03/20 16:35 PT 12.5 Seconds (9.0-12.0) H 01/06/20 04:22 INR 1.2 (0.9-1.1) H 01/06/20 04:22 APTT 33.6 Seconds (21.0-31.0) H 01/03/20 16:35 PTT Ratio 1.2 01/03/20 16:35 Fibrinogen 434 mg/dl (184-400) H 01/03/20 22:59 Fibrinogen Cancelled 01/03/20 22:59 Fibrin Degrad Products 10-40 mcg/ml (<10) H 01/03/20 22:59 D-Dimer 3110 ug/L FEU (0-500) H* 01/03/20 22:59 Sodium 141 mmol/L (136-145) 01/08/20 06:48 Potassium 4.4 mmol/L (3.5-5.1) 01/08/20 06:48 Chloride 113 mmol/L (98-107) H 01/08/20 06:48 Carbon Dioxide 23 mmol/L (21-32) 01/08/20 06:48 Anion Gap 5.0 (3-11) 01/08/20 06:48 BUN 3 mg/dl (7-18) L 01/08/20 06:48 Creatinine 0.62 mg/dl (0.6-1.2) 01/08/20 06:48 Est Cr Clr Drug Dosing 122.6 ml/min 01/08/20 06:48 Est GFR ( Amer) 143.2 01/08/20 06:48 Est GFR (Non-Af Amer) 123.6 01/08/20 06:48 BUN/Creatinine Ratio 5.3 (10-20) L 01/08/20 06:48 Glucose 92 mg/dl (70-99) 01/08/20 06:48 POC Glucose 159 mg/dl (70-99) H 01/05/20 17:41 Lactate 1.5 mmol/L (0.4-2.0) 01/03/20 21:01 Calcium 7.6 mg/dl (8.5-10.1) L D 01/08/20 06:48 Phosphorus 3.0 mg/dl (2.5-4.9) 01/07/20 05:59 Magnesium 1.9 mg/dl (1.8-2.4) 01/07/20 05:59 Total Bilirubin 0.2 mg/dl (0.2-1) 01/08/20 06:48 Direct Bilirubin 0.2 mg/dl (0-0.2) 01/06/20 04:22 AST 18 U/L (15-37) 01/08/20 06:48 ALT 24 U/L (12-78) 01/08/20 06:48 Alkaline Phosphatase 79 U/L (45-117) 01/08/20 06:48 Troponin I < 0.015 ng/ml (0-0.045) 01/03/20 16:35 C-Reactive Protein 21.30 mg/dl (0-0.29) H 01/03/20 16:35 Total Protein 5.5 gm/dl (6.4-8.2) L 01/08/20 06:48 Albumin 1.5 gm/dl (3.4-5.0) L 01/08/20 06:48 Globulin 4.0 gm/dl (2.5-4.0) 01/08/20 06:48 Albumin/Globulin Ratio 0.4 (0.9-2) L 01/08/20 06:48 Procalcitonin 2.38 ng/ml (0-0.5) H 01/03/20 16:35 TSH 1.640 uIu/ml (0.300-4.500) 01/03/20 16:35 HCG, Qual Negative (Negative) 01/03/20 16:35 Random Cortisol 41.64 mcg/dl 01/03/20 19:41 Urine Color Yellow 01/03/20 20:15 Urine Appearance Slightly Cloudy (Clear) 01/03/20 20:15 Urine pH 6.5 (4.5-7.5) 01/03/20 20:15 Ur Specific [place] <= 1.005 (1.000-1.030) 01/03/20 20:15 Urine Protein Negative (Negative) 01/03/20 20:15 Urine Glucose (UA) Negative (Negative) 01/03/20 20:15 Urine Ketones Negative (Negative) 01/03/20 20:15 Urine Blood Trace (Negative) H 01/03/20 20:15 Urine Nitrite Negative (Negative) 01/03/20 20:15 Urine Bilirubin Negative (Negative) 01/03/20 20:15 Urine Urobilinogen Negative (Negative) 01/03/20 20:15 Ur Leukocyte Esterase 2+ (Negative) H 01/03/20 20:15 Urine RBC 0-4 /hpf (0-4) 01/03/20 20:15 Urine WBC >30 /hpf (0-5) H 01/03/20 20:15 Ur Epithelial Cells >30 /lpf (0-5) H 01/03/20 20:15 Urine Bacteria 2+ (Negative) H 01/03/20 20:15 Urine Trichomonas Present (None Prsent) H 01/03/20 20:15 Nasal Screen MRSA (PCR) Positive (Negative) A 01/03/20 22:00 Stl C. diff Tox B Gene Negative Cdiff Gene (Neg) 01/05/20 14:34 Vancomycin Trough 6.5 mcg/ml (See Comment) 01/05/20 05:24 Salicylates < 1.7 mg/dl (2.8-20) L 01/03/20 19:41 Urine Opiates Screen Pos (Neg) H 01/03/20 20:15 U Codeine Confrm GC/MS NEGATIVE ng/mL (<50) 01/03/20 20:15 Ur Morphine (GC/MS) 442 ng/mL (<50) H 01/03/20 20:15 Ur Hydrocodone (GC/MS) NEGATIVE ng/mL (<50) 01/03/20 20:15 Ur Norhydrocodone NEGATIVE ng/mL (<50) 01/03/20 20:15 Ur Noroxycodone NEGATIVE ng/mL (<50) 01/03/20 20:15 Urine Oxycodone (GC/MS) NEGATIVE ng/mL (<50) 01/03/20 20:15 U Oxymorphone GC/MS NEGATIVE ng/mL (<50) 01/03/20 20:15 Ur Methadone, Qual Neg (Neg) 01/03/20 20:15 Ur Hydromorphone (GC/MS) NEGATIVE ng/mL (<50) 01/03/20 20:15 Acetaminophen 6 ug/ml (10-30) L 01/03/20 19:41 Urine Barbiturates Neg (Neg) 01/03/20 20:15 Ur Phencyclidine (PCP) Neg (Neg) 01/03/20 20:15 U Amphetamines Confirm 318 ng/mL (<250) H 01/03/20 20:15 U Amphetamin/Meth Scrn Pos (Neg) H 01/03/20 20:15 U Methamphetamin Confrm 892 ng/mL (<250) H 01/03/20 20:15 MDMA (Ecstasy) Screen Neg (Neg) 01/03/20 20:15 U Benzodiazepines Scrn Neg (Neg) 01/03/20 20:15 Ur Cocaine Metabolite Neg (Neg) 01/03/20 20:15 U Marijuana (THC) Screen Neg (Neg) 01/03/20 20:15 Drug Screen Comment SEE NOTE 01/03/20 20:15 COVID-19 Eval Order Covid[address] [facility] 01/03/20 22:00 COVID-19 PCR NEGATIVE (Negative) 01/03/20 22:00 Hepatitis A IgM Ab NON-REACTIVE (NON-REACTIVE) 01/03/20 19:41 Hep Bs Antigen Neg (Neg) 01/03/20 19:41 Hep B Core IgM Ab NON-REACTIVE (NON-REACTIVE) 01/03/20 19:41 Hepatitis C Antibody Neg (Neg) 01/03/20 19:41 HIV 1&2 Ab/P24 Ag 4thGn Neg (Neg) 01/04/20 04:31 Bld Cult Staph aureus PCR Positive (Negative) A 01/03/20 16:35 Blood Culture MRSA PCR Positive (Negative) A* 01/03/20 16:35 Resident Activity Tracking Resident Involvement: Resident Care Provided Care Provided: Adult Hospital Medicine
[2020-01-08] MEDS: KETOROLAC TROMETHAMINE 15 MG/ML VIAL IV PRN ×2 (10:28→23:39)
[2020-01-08] MEDS: ENOXAPARIN INJ 40 MG/0.4 ML SYR SQ SCH (10:35)
[2020-01-08] MEDS ORDERED: LIDOCAINE 5% 1 PATCH TD SCH (11:30)
[2020-01-08] MEDS: ESCITALOPRAM OXALATE 20 MG TAB PO SCH (12:15)
[2020-01-08] MEDS: DAPTOmycin 575 MG in SYRINGE 0 ML IV SCH (16:00)
--- NOTE | 2020-01-08 17:36 | Billing Data ---
Date of Service January 08, 2020 Coding Level of Care Code 82032 Subseq Hosp Care Lvl 3
[2020-01-08] MEDS: LIDOCAINE 5% 1 PATCH TD SCH (18:10)
[2020-01-08] MEDS: GABAPENTIN 400 MG CAP PO SCH (19:39)
[2020-01-09] MEDS: ACETAMINOPHEN 500 MG TAB PO SCH ×3 (04:07→19:36)
[2020-01-09] MEDS: NSS + 20MEQ KCL 20 MEQ/1,000 ML BAG IV SCH ×3 (04:07→21:52)
[2020-01-09] MEDS: ONDANSETRON INJ 2 MG/ML 2 ML VIAL IV SCH ×4 (04:08→21:52)
--- NOTE | 2020-01-09 05:43 | Electrocardiogram Report ---
Test Reason : Blood Pressure : / mmHG Vent. Rate : 095 BPM Atrial Rate : 095 BPM P-R Int : 146 ms QRS Dur : 084 ms QT Int : 342 ms P-R-T Axes : 031 030 039 degrees QTc Int : 429 ms Normal sinus rhythm Low voltage QRS Cannot rule out Anterior infarct , age undetermined Abnormal ECG When compared with ECG of 06-JAN-2020 08:30, No significant change was found Confirmed by Wilmer Zelaya ([id number]) on 01/09/2020 5:43:12 AM Referred By: REFERRED SELF Confirmed By:Wilmer Zelaya
[2020-01-09] MEDS: METHADONE HCL 5 MG TAB PO SCH ×4 (05:51→17:50)
[2020-01-09 07:15] LABS: Eosinophils # (auto) 0.23 K/uL (0-0.5); Hematocrit (blood only) 27.2 % (37-47); Hemoglobin 9.1 g/dL (12.0-16.0); Immature Granulocytes # (auto) 0.04 K/uL (0.00-0.02); Immature Granulocytes % (auto) 0.7 %; Lymphocytes # (auto) 1.75 K/uL (1.2-3.4); Lymphocytes % (auto) 30.3 %; Mean Corpuscular Hemoglobin 27.2 pg (25-34); Mean Corpuscular Hgb Conc 33.5 g/dL (32-36); Mean Corpuscular Volume 81.4 fL (80-100); Monocytes # (auto) 0.26 K/uL (0.11-0.59); Monocytes % (auto) 4.5 %; Neutrophils # (auto) 3.49 K/uL (1.4-6.5); Neutrophils % (auto) 60.5 %; Platelet Count 267 K/uL (130-400); RDW Coefficient of Variation 16.6 % (11.5-14.5); RDW Standard Deviation 48.8 fL (36.4-46.3); Red Blood Count 3.34 M/uL (4.2-5.4); White Blood Count 5.77 K/uL (4.8-10.8)
--- NOTE | 2020-01-09 07:39 | Hospitalist Progress Note ---
Date of Service January 09, 2020 Assessment & Plan (1) Drug abuse, IV: 29-year-old female with history of prior Suboxone use and IV drug use with heroin presents with 2 weeks of fevers, chills, myalgias, hand and foot pain found to be in septic shock likely secondary to endocarditis with showering emboli. Endocarditis with MRSA Bacteremia - Continues to improve with illness. Still feeling feverish/chilled with goose pumps. - Daptomycin IV daily. - new blood cultures drawn this morning with hopes of being negative as today is day 6 of antibiotics treatment (start on admission on 01/02) IV Drug abuse - methadone increased to 15 mg Q6 2 days ago. has not been overly lethargic/somnolent. - increased methadone to 15 mg Q12H, 20 mg Q12H [15 mg at 6 and 6, 20 mg at 12 and 12) to slowly titrate up without oversuppression of respiratory drive - Tylenol 1000 mg Q8H, Toradol 15 mg Q6H for pain control, 400 mg Gabapentin QHS + 200 mg daily -HIV testing negative, Hepatitis panel negative -Will need social work assistance, psych services, drug/alcohol rehab, etc following this admission. Appreciate CM assistance - she will likely need to be discharged to get dalbavancin to finish out antibiotic coverage. Given her lack of PCP coverage or local ID follow up, will see Dr. Han from [facility] for continuity and close follow up - following up with local methadone clinic on discharge, appointment 01/15, Anxiety - extensive history of difficult family situations, foster care, abandonment etc. - started on lexapro 20 mg daily - repeat EKG showing QTc of 429, low concern for QT prolongation FEN/GI: NSS@75, regular diet, zofran for nausea scheduled DVT prophylaxis: lovenox Full code Dispo: medsurg (2) Bacteremia due to Gram-positive bacteria: (3) Septic embolism: (4) Opiate withdrawal: (5) Endocarditis: (6) Abnormal LFTs: (7) Septic shock: (8) Coagulopathy: Admission and Anticipated Discharge Date Admission Date: January 03, 2020 Supervising Physician Co-Signing Physician Notes I personally examined the patient and verified all laura points of history and exam, discussed case, and agree with decision making with Dr Han similar problems w chest pain and life stressors. offered support. she also called methadone clinic as i was leaving the room vitals noted nad heent nc at mmm breathing unlabored. no accessory muscles good effort skin no rashes no pallor or icterus endocarditis -MRSA - continue dapto. case management working on raymond; if this is unable to be set up, then dapto daily as backup plan. f/u cultures sent today. no clinical evidence of valvulopathy that would require surgical repair anxiety - empathy/support/goal setting/lexapro IVDA/heroin addiction/withdrawal - methadone here, setting herself up w the clinic [facility] as above Subjective Visibly in better spirits today. Trying her best to stay positive despite getting phone calls that she and her son are being kicked out of their apartment. Pain continues to be an issue but she seems to have it under better baseline control. Review of Systems Constitutional: + body aches; no fever, no chills and no weakness Respiratory: + pain on inspiration; no cough and no dyspnea Cardiovascular: + chest pain; no dyspnea at rest, no palpitations and no edema Gastrointestinal: + abdominal pain; no nausea, no vomiting, no cramping and no diarrhea/loose stools Integumentary: + new lesions and + sores Physical Exam Constitutional: + thin and cooperative Eyes: PERRL, conjunctivae normal, anicteric sclerae Respiratory: normal respiratory effort, lungs clear to auscultation normal respiratory effort and able to speak in complete sentences; no respiratory distress, no labored breathing, no retractions, no cough and no audible wheezes Auscultation: lungs clear to auscultation bilaterally; no crackles, no rales, no rhonchi and no wheezes Cardiovascular: Rate/Rhythm: regular rate and regular rhythm Heart Sounds: normal S1 and normal S2; no gallop, no murmur and no cardiac rub Vessels: posterior tibial pulses present Extremities: no pedal edema and no edema Gastrointestinal (Abdomen): normal bowel sounds, soft, nontender, no hepatosplenomegaly Musculoskeletal: no cyanosis or clubbing, extremities motor strength 5/5 Skin: +Osler node on right elbow, painful lesions on base of foot, janeway lesions on arms Neurologic: PERRL, EOMI, accommodation nl, no face palsy, no dysarthria Results & Data Results & Data ([facility]) Vital Signs (Past 12 Hours) Vital Signs Temp Pulse Resp BP Pulse Ox 01/09/20 07:26 37.3 C 79 16 120/77 95 01/08/20 23:13 36.9 C 80 14 102/63 94 Laboratory Results WBC 5.77 K/uL (4.8-10.8) 01/09/20 06:54 RBC 3.34 M/uL (4.2-5.4) L 01/09/20 06:54 Hgb 9.1 g/dL (12.0-16.0) L 01/09/20 06:54 Hct 27.2 % (37-47) L 01/09/20 06:54 MCV 81.4 fL (80-100) 01/09/20 06:54 MCH 27.2 pg (25-34) 01/09/20 06:54 MCHC 33.5 g/dL (32-36) 01/09/20 06:54 RDW Std Deviation 48.8 fL (36.4-46.3) H 01/09/20 06:54 RDW Coeff of Liliya 16.6 % (11.5-14.5) H 01/09/20 06:54 Plt Count 267 K/uL (130-400) 01/09/20 06:54 MPV 10.0 fL (7.4-10.4) 01/09/20 06:54 Immature Gran % (Auto) 0.7 % 01/09/20 06:54 Neut % (Auto) 60.5 % 01/09/20 06:54 Lymph % (Auto) 30.3 % 01/09/20 06:54 Gaston % (Auto) 4.5 % 01/09/20 06:54 Eos % (Auto) 4.0 % 01/09/20 06:54 Baso % (Auto) 0.0 % 01/09/20 06:54 Neut # (Auto) 3.49 K/uL (1.4-6.5) 01/09/20 06:54 Lymph # (Auto) 1.75 K/uL (1.2-3.4) 01/09/20 06:54 Gaston # (Auto) 0.26 K/uL (0.11-0.59) 01/09/20 06:54 Eos # (Auto) 0.23 K/uL (0-0.5) 01/09/20 06:54 Baso # (Auto) 0.00 K/uL (0-0.2) 01/09/20 06:54 Immature Gran # (Auto) 0.04 K/uL (0.00-0.02) H 01/09/20 06:54 Toxic Granulation Occasional 01/06/20 04:22 Toxic Vacuolation 1+ 01/03/20 16:35 Dohle Bodies 1+ 01/05/20 05:24 Platelet Estimate Decreased (Normal) L 01/05/20 05:24 Echinocytes 1+ 01/06/20 04:22 ESR 73 mm/hr (0-21) H 01/03/20 16:35 PT 12.5 Seconds (9.0-12.0) H 01/06/20 04:22 INR 1.2 (0.9-1.1) H 01/06/20 04:22 APTT 33.6 Seconds (21.0-31.0) H 01/03/20 16:35 PTT Ratio 1.2 01/03/20 16:35 Fibrinogen 434 mg/dl (184-400) H 01/03/20 22:59 Fibrinogen Cancelled 01/03/20 22:59 Fibrin Degrad Products 10-40 mcg/ml (<10) H 01/03/20 22:59 D-Dimer 3110 ug/L FEU (0-500) H* 01/03/20 22:59 Sodium 140 mmol/L (136-145) 01/09/20 06:54 Potassium 4.6 mmol/L (3.5-5.1) 01/09/20 06:54 Chloride 111 mmol/L (98-107) H 01/09/20 06:54 Carbon Dioxide 26 mmol/L (21-32) 01/09/20 06:54 Anion Gap 3.0 (3-11) 01/09/20 06:54 BUN 4 mg/dl (7-18) L 01/09/20 06:54 Creatinine 0.77 mg/dl (0.6-1.2) 01/09/20 06:54 Est Cr Clr Drug Dosing 98.8 ml/min 01/09/20 06:54 Est GFR ( Amer) 122.6 01/09/20 06:54 Est GFR (Non-Af Amer) 105.8 01/09/20 06:54 BUN/Creatinine Ratio 5.2 (10-20) L 01/09/20 06:54 Glucose 90 mg/dl (70-99) 01/09/20 06:54 POC Glucose 159 mg/dl (70-99) H 01/05/20 17:41 Lactate 1.5 mmol/L (0.4-2.0) 01/03/20 21:01 Calcium 7.8 mg/dl (8.5-10.1) L 01/09/20 06:54 Phosphorus 3.0 mg/dl (2.5-4.9) 01/07/20 05:59 Magnesium 1.9 mg/dl (1.8-2.4) 01/07/20 05:59 Total Bilirubin 0.2 mg/dl (0.2-1) 01/08/20 06:48 Direct Bilirubin 0.2 mg/dl (0-0.2) 01/06/20 04:22 AST 18 U/L (15-37) 01/08/20 06:48 ALT 24 U/L (12-78) 01/08/20 06:48 Alkaline Phosphatase 79 U/L (45-117) 01/08/20 06:48 Total Creatine Kinase 9 U/L (26-192) L 01/08/20 15:08 Troponin I < 0.015 ng/ml (0-0.045) 01/03/20 16:35 C-Reactive Protein 21.30 mg/dl (0-0.29) H 01/03/20 16:35 Total Protein 5.5 gm/dl (6.4-8.2) L 01/08/20 06:48 Albumin 1.5 gm/dl (3.4-5.0) L 01/08/20 06:48 Globulin 4.0 gm/dl (2.5-4.0) 01/08/20 06:48 Albumin/Globulin Ratio 0.4 (0.9-2) L 01/08/20 06:48 Procalcitonin 2.38 ng/ml (0-0.5) H 01/03/20 16:35 TSH 1.640 uIu/ml (0.300-4.500) 01/03/20 16:35 HCG, Qual Negative (Negative) 01/03/20 16:35 Random Cortisol 41.64 mcg/dl 01/03/20 19:41 Urine Color Yellow 01/03/20 20:15 Urine Appearance Slightly Cloudy (Clear) 01/03/20 20:15 Urine pH 6.5 (4.5-7.5) 01/03/20 20:15 Ur Specific Wiseman <= 1.005 (1.000-1.030) 01/03/20 20:15 Urine Protein Negative (Negative) 01/03/20 20:15 Urine Glucose (UA) Negative (Negative) 01/03/20 20:15 Urine Ketones Negative (Negative) 01/03/20 20:15 Urine Blood Trace (Negative) H 01/03/20 20:15 Urine Nitrite Negative (Negative) 01/03/20 20:15 Urine Bilirubin Negative (Negative) 01/03/20 20:15 Urine Urobilinogen Negative (Negative) 01/03/20 20:15 Ur Leukocyte Esterase 2+ (Negative) H 01/03/20 20:15 Urine RBC 0-4 /hpf (0-4) 01/03/20 20:15 Urine WBC >30 /hpf (0-5) H 01/03/20 20:15 Ur Epithelial Cells >30 /lpf (0-5) H 01/03/20 20:15 Urine Bacteria 2+ (Negative) H 01/03/20 20:15 Urine Trichomonas Present (None Prsent) H 01/03/20 20:15 Nasal Screen MRSA (PCR) Positive (Negative) A 01/03/20 22:00 Stl C. diff Tox B Gene Negative Cdiff Gene (Neg) 01/05/20 14:34 Vancomycin Trough 6.5 mcg/ml (See Comment) 01/05/20 05:24 Salicylates < 1.7 mg/dl (2.8-20) L 01/03/20 19:41 Urine Opiates Screen Pos (Neg) H 01/03/20 20:15 U Codeine Confrm GC/MS NEGATIVE ng/mL (<50) 01/03/20 20:15 Ur Morphine (GC/MS) 442 ng/mL (<50) H 01/03/20 20:15 Ur Hydrocodone (GC/MS) NEGATIVE ng/mL (<50) 01/03/20 20:15 Ur Norhydrocodone NEGATIVE ng/mL (<50) 01/03/20 20:15 Ur Noroxycodone NEGATIVE ng/mL (<50) 01/03/20 20:15 Urine Oxycodone (GC/MS) NEGATIVE ng/mL (<50) 01/03/20 20:15 U Oxymorphone GC/MS NEGATIVE ng/mL (<50) 01/03/20 20:15 Ur Methadone, Qual Neg (Neg) 01/03/20 20:15 Ur Hydromorphone (GC/MS) NEGATIVE ng/mL (<50) 01/03/20 20:15 Acetaminophen 6 ug/ml (10-30) L 01/03/20 19:41 Urine Barbiturates Neg (Neg) 01/03/20 20:15 Ur Phencyclidine (PCP) Neg (Neg) 01/03/20 20:15 U Amphetamines Confirm 318 ng/mL (<250) H 01/03/20 20:15 U Amphetamin/Meth Scrn Pos (Neg) H 01/03/20 20:15 U Methamphetamin Confrm 892 ng/mL (<250) H 01/03/20 20:15 MDMA (Ecstasy) Screen Neg (Neg) 01/03/20 20:15 U Benzodiazepines Scrn Neg (Neg) 01/03/20 20:15 Ur Cocaine Metabolite Neg (Neg) 01/03/20 20:15 U Marijuana (THC) Screen Neg (Neg) 01/03/20 20:15 Drug Screen Comment SEE NOTE 01/03/20 20:15 COVID-19 Eval Order Covid19 Done at [facility] 01/03/20 22:00 COVID-19 PCR NEGATIVE (Negative) 01/03/20 22:00 Hepatitis A IgM Ab NON-REACTIVE (NON-REACTIVE) 01/03/20 19:41 Hep Bs Antigen Neg (Neg) 01/03/20 19:41 Hep B Core IgM Ab NON-REACTIVE (NON-REACTIVE) 01/03/20 19:41 Hepatitis C Antibody Neg (Neg) 01/03/20 19:41 HIV 1&2 Ab/P24 Ag 4thGn Neg (Neg) 01/04/20 04:31 Bld Cult Staph aureus PCR Positive (Negative) A 01/03/20 16:35 Blood Culture MRSA PCR Positive (Negative) A* 01/03/20 16:35 Resident Activity Tracking Resident Involvement: Resident Care Provided Care Provided: Adult Hospital Medicine
[2020-01-09 07:41] LABS: BUN Creatinine Ratio 5.2 (10-20); Calcium 7.8 mg/dl (8.5-10.1); Creatinine Clr Calc Pharmacy 98.8 ml/min; Est GFR (African American) 122.6; Est GFR (Non-African American) 105.8; Potassium 4.6 mmol/L (3.5-5.1)
[2020-01-09] MEDS: NYSTATIN SUSP 500,000 U/5 ML UDC PO SCH ×4 (07:46→21:52)
[2020-01-09] MEDS: ESCITALOPRAM OXALATE 20 MG TAB PO SCH (07:46)
[2020-01-09] MEDS: PANTOprazole 40 MG TAB PO SCH (07:47)
[2020-01-09] MEDS: KETOROLAC TROMETHAMINE 15 MG/ML VIAL IV PRN ×2 (07:48→16:44)
[2020-01-09] MEDS: GABAPENTIN 300 MG CAP PO SCH (09:00)
[2020-01-09] MEDS: NICOTINE 7 MG/24 HR TDSY TD SCH (09:00)
[2020-01-09] MEDS: ENOXAPARIN INJ 40 MG/0.4 ML SYR SQ SCH (12:10)
[2020-01-09] MEDS: DAPTOmycin 575 MG in SYRINGE 0 ML IV SCH (14:46)
--- NOTE | 2020-01-09 14:58 | Electrocardiogram Report ---
Test Reason : Blood Pressure : / mmHG Vent. Rate : 070 BPM Atrial Rate : 070 BPM P-R Int : 148 ms QRS Dur : 086 ms QT Int : 368 ms P-R-T Axes : 035 047 050 degrees QTc Int : 397 ms Normal sinus rhythm with sinus arrhythmia Low voltage QRS RSR' or QR pattern in V1 suggests right ventricular conduction delay Borderline ECG When compared with ECG of 08-JAN-2020 12:45, Minimal criteria for Anterior infarct are no longer Present Confirmed by Paul Koehler ([id number]) on 01/09/2020 2:58:41 PM Referred By: REFERRED SELF Confirmed By:Paul Koehler
[2020-01-09] MEDS: LIDOCAINE 5% 1 PATCH TD SCH (17:47)
--- NOTE | 2020-01-09 19:25 | Billing Data ---
Date of Service January 09, 2020 Coding Level of Care Code 12015 Subseq Hosp Care Lvl 3
[2020-01-09] MEDS: GABAPENTIN 400 MG CAP PO SCH (21:52)
[2020-01-10] MEDS: METHADONE HCL 5 MG TAB PO SCH ×4 (00:02→18:18)
[2020-01-10] MEDS: ACETAMINOPHEN 500 MG TAB PO SCH ×3 (04:10→22:01)
[2020-01-10] MEDS: ONDANSETRON INJ 2 MG/ML 2 ML VIAL IV SCH ×4 (04:10→22:01)
[2020-01-10] MEDS: NSS + 20MEQ KCL 20 MEQ/1,000 ML BAG IV SCH (06:15)
[2020-01-10 08:08] LABS: Creatinine Clr Calc Pharmacy 111.8 ml/min; Est GFR (African American) 138.9; Est GFR (Non-African American) 119.9
--- NOTE | 2020-01-10 08:16 | Hospitalist Progress Note ---
Date of Service January 10, 2020 Assessment & Plan (1) Drug abuse, IV: 29-year-old female with history of prior Suboxone use and IV drug use with heroin presents with 2 weeks of fevers, chills, myalgias, hand and foot pain found to be in septic shock likely secondary to endocarditis with showering emboli. Pulmonary Septic Emboli - New evolving shortness of breath last night requiring 2L NC concerning for PNA/Effusion/worsening lung disease behind emboli. - CT Chest w/con ordered for evaluation of SOB. 1. Slight progression of the multifocal scattered pulmonary nodular opacities seen throughout the lungs, some of which demonstrate central cavitation. This favors septic emboli. This could also be due to an atypical infectious process such as a fungal infection or inflammatory etiology. Neoplasm is considered less likely but not entirely excluded. 2. Interval development of mild congestive change/pulmonary edema and small bilateral pleural effusions. The heart is also mildly enlarged. 3. Hepatic steatosis. 4. The spleen is enlarged but has improved in the interval. - morphine 2 mg IV Q8H for pain control on top of methadone, gabapentin, toradol, tylenol. Hold for sedation. Narcan ordered PRN for respiratory sedation. - 20 mg lasix IV x1 to relieve pulmonary edema Endocarditis with MRSA Bacteremia - Blood cultures from 01/08 positive in 1 bottle for G+ cocci - Bacteremia coverage with Daptomycin given previous low concern for pulmonary involvement outside of isolated septic emboli. Urinary incontinence/concern for epidural abscess - she describes worsening foot pain similar to the pain that initially brought her into the hospital for the endocarditis. - has noticed improving but still persistent urinary incontinence. Realizes that she urinated because she is wet rather than having felt herself urinate. Frequently feels the urge to urinate but will not make it to the bathroom on time, despite not feeling like she needs to urinate /that/ badly. - able to perform straight leg raise bilaterally however feels considerably weak again - no bowel incontinence. - MRI lumbar spine w/wo con: negative for epidural abscess, vertebral compr ession of spinal cord. L5/S1 disc bulging compressing root of nerves. IV Drug abuse - increased methadone to 15 mg Q12H, 20 mg Q12H [15 mg at 6 and 6, 20 mg at 12 and 12) to slowly titrate up without oversuppression of respiratory drive - Tylenol 1000 mg Q8H, Toradol 15 mg Q6H for pain control, 400 mg Gabapentin QHS + 200 mg daily -HIV testing negative, Hepatitis panel negative -Will need social work assistance, psych services, drug/alcohol rehab, etc following this admission. Appreciate CM assistance - she will likely need to be discharged to get dalbavancin to finish out antibiotic coverage. Given her lack of PCP coverage or local ID follow up, will see Dr. Han from [facility] for continuity and close follow up - following up with local methadone clinic on discharge, appointment 01/15, Anxiety - extensive history of difficult family situations, foster care, abandonment etc. - started on lexapro 20 mg daily - repeat EKG showing QTc of 429, low concern for QT prolongation FEN/GI: regular diet, zofran for nausea scheduled DVT prophylaxis: lovenox Full code Dispo: medsurg (2) Bacteremia due to Gram-positive bacteria: (3) Septic embolism: (4) Opiate withdrawal: (5) Endocarditis: (6) Abnormal LFTs: (7) Septic shock: (8) Coagulopathy: Admission and Anticipated Discharge Date Admission Date: January 03, 2020 Supervising Physician Co-Signing Physician Notes I personally examined the patient and verified all laura points of history and exam, discussed case, and agree with decision making with Dr Han CP was a little worse, breathing a little worse felt better with O2 vitals noted nad heent nc at mmm breathing unlabored. no accessory muscles good effort skin no rashes no pallor or icterus endocarditis -MRSA - continue dapto. case management working on dalvance; if this is unable to be set up, then dapto daily as backup plan. f[facility]. sl pulmonary edema worrisome - repeat TTE w [facility] if results not totally stable pulmonary edema - acute diastolic from valvulopathy. lasix x1 echo as above, follow bladder control loss - MRI Lspine reassuring, low threshold to check upper lesions (Tspine, brain, maybe Cspine) but since sx improving and could be explained by just fatigue from severity of illness. follow closely anxiety - empathy/support/goal setting/lexapro - overall doing better IVDA/heroin addiction/withdrawal - methadone here, setting herself up w the clinic otherwise as above Subjective Multiple complaints and issues this morning. 1) Foot pain: Concerned that the severe foot pain that caused her to come in is returning and worsening 2) Chest pain: having worsening chest pain, was placed on nasal cannula 2L overnight. Notes that she has had trouble sleeping during her stay and was essentially knocked out asleep with oxygen on because she was finally comfortable breathing. 3) Urinary Incontinence: present on admission and was improving, however she is unable to feel the sensation of urination and moreso notices when her legs are wet. has had multiple episodes of feeling urge to go to bathroom and urinating prior to getting there. Review of Systems Constitutional: + body aches, + weakness and + insomnia Respiratory: + pain on inspiration Cardiovascular: + chest pain; no edema Gastrointestinal: no nausea, no vomiting, no diarrhea/loose stools, no fecal incontinence and no blood in stools Genitourinary: + urinary urgency and + urinary incontinence; no dysuria Musculoskeletal: + body aches Integumentary: + lesions (painful Osler nodes) Neurologic: no unsteadiness, no localized weakness, no loss of sensation and n o tingling Psychiatric: + abnormal sleep pattern and + anxiety Physical Exam Constitutional: + thin Respiratory: normal respiratory effort, lungs clear to auscultation Skin: + Osler nodes, janeway lesions on hands and feet Results & Data Results & Data ([facility]) Vital Signs (Past 12 Hours) Vital Signs Temp Pulse Resp BP Pulse Ox 01/10/20 07:20 36.7 C 72 18 115/70 96 01/10/20 03:29 14 93 01/09/20 23:45 96 01/09/20 23:39 36.8 C 71 14 105/67 92 Laboratory Results WBC 5.77 K/uL (4.8-10.8) 01/09/20 06:54 RBC 3.34 M/uL (4.2-5.4) L 01/09/20 06:54 Hgb 9.1 g/dL (12.0-16.0) L 01/09/20 06:54 Hct 27.2 % (37-47) L 01/09/20 06:54 MCV 81.4 fL (80-100) 01/09/20 06:54 MCH 27.2 pg (25-34) 01/09/20 06:54 MCHC 33.5 g/dL (32-36) 01/09/20 06:54 RDW Std Deviation 48.8 fL (36.4-46.3) H 01/09/20 06:54 RDW Coeff of Liliya 16.6 % (11.5-14.5) H 01/09/20 06:54 Plt Count 267 K/uL (130-400) 01/09/20 06:54 MPV 10.0 fL (7.4-10.4) 01/09/20 06:54 Immature Gran % (Auto) 0.7 % 01/09/20 06:54 Neut % (Auto) 60.5 % 01/09/20 06:54 Lymph % (Auto) 30.3 % 01/09/20 06:54 Bennett % (Auto) 4.5 % 01/09/20 06:54 Eos % (Auto) 4.0 % 01/09/20 06:54 Baso % (Auto) 0.0 % 01/09/20 06:54 Neut # (Auto) 3.49 K/uL (1.4-6.5) 01/09/20 06:54 Lymph # (Auto) 1.75 K/uL (1.2-3.4) 01/09/20 06:54 Bennett # (Auto) 0.26 K/uL (0.11-0.59) 01/09/20 06:54 Eos # (Auto) 0.23 K/uL (0-0.5) 01/09/20 06:54 Baso # (Auto) 0.00 K/uL (0-0.2) 01/09/20 06:54 Immature Gran # (Auto) 0.04 K/uL (0.00-0.02) H 01/09/20 06:54 Toxic Granulation Occasional 01/06/20 04:22 Toxic Vacuolation 1+ 01/03/20 16:35 Dohle Bodies 1+ 01/05/20 05:24 Platelet Estimate Decreased (Normal) L 01/05/20 05:24 Echinocytes 1+ 01/06/20 04:22 ESR 73 mm/hr (0-21) H 01/03/20 16:35 PT 12.5 Seconds (9.0-12.0) H 01/06/20 04:22 INR 1.2 (0.9-1.1) H 01/06/20 04:22 APTT 33.6 Seconds (21.0-31.0) H 01/03/20 16:35 PTT Ratio 1.2 01/03/20 16:35 Fibrinogen 434 mg/dl (184-400) H 01/03/20 22:59 Fibrinogen Cancelled 01/03/20 22:59 Fibrin Degrad Products 10-40 mcg/ml (<10) H 01/03/20 22:59 D-Dimer 3110 ug/L FEU (0-500) H* 01/03/20 22:59 Sodium 140 mmol/L (136-145) 01/09/20 06:54 Potassium 4.6 mmol/L (3.5-5.1) 01/09/20 06:54 Chloride 111 mmol/L (98-107) H 01/09/20 06:54 Carbon Dioxide 26 mmol/L (21-32) 01/09/20 06:54 Anion Gap 3.0 (3-11) 01/09/20 06:54 BUN 4 mg/dl (7-18) L 01/09/20 06:54 Creatinine 0.68 mg/dl (0.6-1.2) 01/10/20 07:41 Est Cr Clr Drug Dosing 111.8 ml/min 01/10/20 07:41 Est GFR ( Amer) 138.9 01/10/20 07:41 Est GFR (Non-Af Amer) 119.9 01/10/20 07:41 BUN/Creatinine Ratio 5.2 (10-20) L 01/09/20 06:54 Glucose 90 mg/dl (70-99) 01/09/20 06:54 POC Glucose 159 mg/dl (70-99) H 01/05/20 17:41 Lactate 1.5 mmol/L (0.4-2.0) 01/03/20 21:01 Calcium 7.8 mg/dl (8.5-10.1) L 01/09/20 06:54 Phosphorus 3.0 mg/dl (2.5-4.9) 01/07/20 05:59 Magnesium 1.9 mg/dl (1.8-2.4) 01/07/20 05:59 Total Bilirubin 0.2 mg/dl (0.2-1) 01/08/20 06:48 Direct Bilirubin 0.2 mg/dl (0-0.2) 01/06/20 04:22 AST 18 U/L (15-37) 01/08/20 06:48 ALT 24 U/L (12-78) 01/08/20 06:48 Alkaline Phosphatase 79 U/L (45-117) 01/08/20 06:48 Total Creatine Kinase 9 U/L (26-192) L 01/08/20 15:08 Troponin I < 0.015 ng/ml (0-0.045) 01/03/20 16:35 C-Reactive Protein 21.30 mg/dl (0-0.29) H 01/03/20 16:35 Total Protein 5.5 gm/dl (6.4-8.2) L 01/08/20 06:48 Albumin 1.5 gm/dl (3.4-5.0) L 01/08/20 06:48 Globulin 4.0 gm/dl (2.5-4.0) 01/08/20 06:48 Albumin/Globulin Ratio 0.4 (0.9-2) L 01/08/20 06:48 Procalcitonin 2.38 ng/ml (0-0.5) H 01/03/20 16:35 TSH 1.640 uIu/ml (0.300-4.500) 01/03/20 16:35 HCG, Qual Negative (Negative) 01/03/20 16:35 Random Cortisol 41.64 mcg/dl 01/03/20 19:41 Urine Color Yellow 01/03/20 20:15 Urine Appearance Slightly Cloudy (Clear) 01/03/20 20:15 Urine pH 6.5 (4.5-7.5) 01/03/20 20:15 Ur Specific [place] <= 1.005 (1.000-1.030) 01/03/20 20:15 Urine Protein Negative (Negative) 01/03/20 20:15 Urine Glucose (UA) Negative (Negative) 01/03/20 20:15 Urine Ketones Negative (Negative) 01/03/20 20:15 Urine Blood Trace (Negative) H 01/03/20 20:15 Urine Nitrite Negative (Negative) 01/03/20 20:15 Urine Bilirubin Negative (Negative) 01/03/20 20:15 Urine Urobilinogen Negative (Negative) 01/03/20 20:15 Ur Leukocyte Esterase 2+ (Negative) H 01/03/20 20:15 Urine RBC 0-4 /hpf (0-4) 01/03/20 20:15 Urine WBC >30 /hpf (0-5) H 01/03/20 20:15 Ur Epithelial Cells >30 /lpf (0-5) H 01/03/20 20:15 Urine Bacteria 2+ (Negative) H 01/03/20 20:15 Urine Trichomonas Present (None Prsent) H 01/03/20 20:15 Nasal Screen MRSA (PCR) Positive (Negative) A 01/03/20 22:00 Stl C. diff Tox B Gene Negative Cdiff Gene (Neg) 01/05/20 14:34 Vancomycin Trough 6.5 mcg/ml (See Comment) 01/05/20 05:24 Salicylates < 1.7 mg/dl (2.8-20) L 01/03/20 19:41 Urine Opiates Screen Pos (Neg) H 01/03/20 20:15 U Codeine Confrm GC/MS NEGATIVE ng/mL (<50) 01/03/20 20:15 Ur Morphine (GC/MS) 442 ng/mL (<50) H 01/03/20 20:15 Ur Hydrocodone (GC/MS) NEGATIVE ng/mL (<50) 01/03/20 20:15 Ur Norhydrocodone NEGATIVE ng/mL (<50) 01/03/20 20:15 Ur Noroxycodone NEGATIVE ng/mL (<50) 01/03/20 20:15 Urine Oxycodone (GC/MS) NEGATIVE ng/mL (<50) 01/03/20 20:15 U Oxymorphone GC/MS NEGATIVE ng/mL (<50) 01/03/20 20:15 Ur Methadone, Qual Neg (Neg) 01/03/20 20:15 Ur Hydromorphone (GC/MS) NEGATIVE ng/mL (<50) 01/03/20 20:15 Acetaminophen 6 ug/ml (10-30) L 01/03/20 19:41 Urine Barbiturates Neg (Neg) 01/03/20 20:15 Ur Phencyclidine (PCP) Neg (Neg) 01/03/20 20:15 U Amphetamines Confirm 318 ng/mL (<250) H 01/03/20 20:15 U Amphetamin/Meth Scrn Pos (Neg) H 01/03/20 20:15 U Methamphetamin Confrm 892 ng/mL (<250) H 01/03/20 20:15 MDMA (Ecstasy) Screen Neg (Neg) 01/03/20 20:15 U Benzodiazepines Scrn Neg (Neg) 01/03/20 20:15 Ur Cocaine Metabolite Neg (Neg) 01/03/20 20:15 U Marijuana (THC) Screen Neg (Neg) 01/03/20 20:15 Drug Screen Comment SEE NOTE 01/03/20 20:15 COVID-19 Eval Order Covid19 Done at [facility] 01/03/20 22:00 COVID-19 PCR NEGATIVE (Negative) 01/03/20 22:00 Hepatitis A IgM Ab NON-REACTIVE (NON-REACTIVE) 01/03/20 19:41 Hep Bs Antigen Neg (Neg) 01/03/20 19:41 Hep B Core IgM Ab NON-REACTIVE (NON-REACTIVE) 01/03/20 19:41 Hepatitis C Antibody Neg (Neg) 01/03/20 19:41 HIV 1&2 Ab/P24 Ag 4thGn Neg (Neg) 01/04/20 04:31 Bld Cult Staph aureus PCR Positive (Negative) A 01/03/20 16:35 Blood Culture MRSA PCR Positive (Negative) A* 01/03/20 16:35 Resident Activity Tracking Resident Involvement: Resident Care Provided Care Provided: Adult Hospital Medicine
[2020-01-10] MEDS: PANTOprazole 40 MG TAB PO SCH (09:53)
[2020-01-10] MEDS: GABAPENTIN 300 MG CAP PO SCH (09:53)
[2020-01-10] MEDS: NYSTATIN SUSP 500,000 U/5 ML UDC PO SCH ×4 (09:54→19:56)
[2020-01-10] MEDS: NICOTINE 7 MG/24 HR TDSY TD SCH (09:54)
[2020-01-10] MEDS: ESCITALOPRAM OXALATE 20 MG TAB PO SCH (09:57)
[2020-01-10] MEDS: KETOROLAC TROMETHAMINE 15 MG/ML VIAL IV PRN ×2 (10:11→18:23)
[2020-01-10] MEDS ORDERED: NALOXONE HCL 0.4 MG/1 ML VIAL/CARP IV PRN (10:55)
[2020-01-10] MEDS ORDERED: MoRPHine SULFATE 2 MG/ML CARP IV STA (10:55)
[2020-01-10] MEDS ORDERED: IOVERSOL 100ml IV ONE (11:24)
--- NOTE | 2020-01-10 11:38 | CT Scan Report ---
CHEST CT WITH CONTRAST CT DOSE: 206.55 mGy.cm HISTORY: septic emboli, PNA? TECHNIQUE: Multiaxial CT images of the chest were performed following the intravenous administration of contrast. A dose lowering technique was utilized adhering to the principles of ALARA. COMPARISON: Chest CTA 01/03/2020. FINDINGS: Slight progression of the multiple scattered pulmonary nodular opacities seen throughout th e lungs. Some of these demonstrate central cavitation. These are both increased in size and number co mpared the prior study. There are now small bilateral pleural effusions and mild interlobular septal thickening consistent with mild congestive change. The central airways are patent. Severe hepatic faviola atosis. Heterogeneous enhancement of the spleen which is enlarged. However, this has slightly decreas ed in size in the interval. The main pulmonary arteries are patent. The distal pulmonary arteries are not well opacified. Normal caliber thoracic aorta with no evidence for dissection. The heart is mild ly enlarged. No mediastinal or hilar lymphadenopathy. Mild diffuse body wall edema. No fractures with in the visualized osseous structures. IMPRESSION: 1. Slight progression of the multifocal scattered pulmonary nodular opacities seen throughout the simón gs, some of which demonstrate central cavitation. This favors septic emboli. This could also be due t o an atypical infectious process such as a fungal infection or inflammatory etiology. Neoplasm is con sidered less likely but not entirely excluded. 2. Interval development of mild congestive change/pulmonary edema and small bilateral pleural effusio ns. The heart is also mildly enlarged. 3. Hepatic steatosis. 4. The spleen is enlarged but has improved in the interval. ACT 112: Negative or not required by law. Electronically signed by: Dwight Sommer M.D. 01/10/2020 11:36 AM
[2020-01-10] MEDS: ENOXAPARIN INJ 40 MG/0.4 ML SYR SQ SCH (12:16)
[2020-01-10] MEDS ORDERED: GADOBUTROL 30ML VIAL IV ONE (13:51)
--- NOTE | 2020-01-10 14:25 | Magnetic Resonance Report ---
LUMBAR SPINE MRI WITH AND WITHOUT CONTRAST HISTORY: concern for cord compression, urinary incontinence TECHNIQUE: Multiplanar multisequence MRI of the lumbar spine was performed both before and after the intravenous administration of contrast. COMPARISON: None. FINDINGS: For the purpose of the report the L5-S1 disc space will be located on axial image 23 of 25. Straightening of the lumbar spine. Alignment is intact. No fracture or subluxation. Disc space narrow ing and disc desiccation L4-L5 and moderate disc space narrowing at L5-S1. The conus terminates at th e L1 level. Paravertebral soft tissues are within normal limits. No abnormal enhancement. No epidural masses or fluid collections identified. Mild endplate degenerative changes at L4-L5 and L5-S1. L1-L2: No significant central canal or neural foraminal narrowing. L2-L3: No significant central canal or neural foraminal narrowing. L3-L4: No significant central canal or neural foraminal narrowing. L4-L5: Broad-based posterior disc bulge with a small focal central disc protrusion which abuts the bi lateral transiting L5 nerve roots without significant compression. There is minimal central canal nando rowing at this level. No significant neural foraminal narrowing. L5-S1: Broad-based posterior disc bulge with a focal central disc protrusion. This abuts the bilatera l transiting S1 nerve roots and likely compresses the transiting right S1 nerve root. This results in mild central canal narrowing. No significant neural foraminal narrowing. IMPRESSION: 1. Focal central disc protrusions at L4-L5 and L5-S1 which abuts the transiting nerve roots as descri bed above. 2. No fracture or subluxation within the lumbar spine. 3. No evidence for cauda equina compression. 4. No abnormal enhancement. ACT 112: Negative or not required by law. Electronically signed by: Dwight Sommer M.D. 01/10/2020 2:24 PM
[2020-01-10] MEDS: MoRPHine SULFATE 2 MG/ML CARP IV SCH ×2 (15:00→21:59)
[2020-01-10] MEDS: DAPTOmycin 575 MG in SYRINGE 0 ML IV SCH (15:21)
[2020-01-10] MEDS ORDERED: FUROSEMIDE 20 MG in SYRINGE 0 ML IV ONE (16:35)
[2020-01-10] MEDS: LIDOCAINE 5% 1 PATCH TD SCH (18:20)
--- NOTE | 2020-01-10 19:07 | Billing Data ---
Date of Service January 10, 2020 Coding Level of Care Code 57640 Subseq Hosp Care Lvl 3
[2020-01-10] MEDS: GABAPENTIN 400 MG CAP PO SCH (20:30)
[2020-01-11] MEDS: METHADONE HCL 5 MG TAB PO SCH ×4 (00:51→17:35)
[2020-01-11] MEDS: KETOROLAC TROMETHAMINE 15 MG/ML VIAL IV PRN ×3 (00:59→16:38)
[2020-01-11] MEDS: ACETAMINOPHEN 500 MG TAB PO SCH ×4 (03:51→21:06)
[2020-01-11] MEDS: ONDANSETRON INJ 2 MG/ML 2 ML VIAL IV SCH ×4 (03:51→21:07)
[2020-01-11] MEDS: MoRPHine SULFATE 2 MG/ML CARP IV SCH ×3 (06:35→21:07)
[2020-01-11] MEDS: ESCITALOPRAM OXALATE 20 MG TAB PO SCH (08:35)
[2020-01-11] MEDS: NYSTATIN SUSP 500,000 U/5 ML UDC PO SCH ×4 (08:35→20:57)
[2020-01-11] MEDS: PANTOprazole 40 MG TAB PO SCH (08:35)
[2020-01-11] MEDS: NICOTINE 7 MG/24 HR TDSY TD SCH (08:35)
[2020-01-11] MEDS: GABAPENTIN 300 MG CAP PO SCH (08:36)
--- NOTE | 2020-01-11 09:55 | Hospitalist Progress Note ---
Date of Service January 11, 2020 Assessment & Plan (1) Drug abuse, IV: 29-year-old female with history of prior Suboxone use and IV drug use with heroin presents with 2 weeks of fevers, chills, myalgias, hand and foot pain found to be in septic shock likely secondary to endocarditis with showering emboli. Pulmonary Septic Emboli - New evolving shortness of breath last night requiring 2L NC concerning for PNA/Effusion/worsening lung disease behind emboli. - CT Chest w/con ordered for evaluation of SOB. 1. Slight progression of the multifocal scattered pulmonary nodular opacities seen throughout the lungs, some of which demonstrate central cavitation. This f avors septic emboli. This could also be due to an atypical infectious process such as a fungal infection or inflammatory etiology. Neoplasm is considered less likely but not entirely excluded. 2. Interval development of mild congestive change/pulmonary edema and small bilateral pleural effusions. The heart is also mildly enlarged. 3. Hepatic steatosis. 4. The spleen is enlarged but has improved in the interval. - 20 mg IV lasix unhelpful in improving breathing difficulty Endocarditis with MRSA Bacteremia - Blood cultures from 01/08 positive in 1 bottle for G+ cocci, repeat cultures ordered todasy - Bacteremia coverage with Daptomycin given previous low concern for pulmonary involvement outside of isolated septic emboli as well as low MEL sensitivity to Dapto - Repeat TTE showin cm vegetation of anterior leaflet of mitral valve, moderate to severe tricuspid regurgitation, small vegetation of tricuspid valve, normal Left and right ventricular systolic pressures. - concern for progression of endocarditis despite continuous antibiotic therapy given original ECHO read of 2-3mm vegetation on mitral valve and mild-moderate tricuspid regurgitation - KILEY ordered for AM, may require transfer to tertiary center for evaluation of valves/CT Surgery Urinary incontinence/concern for epidural abscess - she describes worsening foot pain similar to the pain that initially brought her into the hospital for the endocarditis. - has noticed improving but still persistent urinary incontinence. Realizes that she urinated because she is wet rather than having felt herself urinate. Frequently feels the urge to urinate but will not make it to the bathroom on time, despite not feeling like she needs to urinate /that/ badly. - able to perform straight leg raise bilaterally however feels considerably weak again - no bowel incontinence. - MRI lumbar spine w/wo con: negative for epidural abscess, vertebral compression of spinal cord. L5/S1 disc bulging compressing root of nerves. IV Drug abuse - increased methadone to 15 mg Q12H, 20 mg Q12H [15 mg at 6 and 6, 20 mg at 12 and 12) to slowly titrate up without oversuppression of respiratory drive - Tylenol 1000 mg Q8H, Toradol 15 mg Q6H for pain control, 400 mg Gabapentin QHS + 200 mg daily -HIV testing negative, Hepatitis panel negative -Will need social work assistance, psych services, drug/alcohol rehab, etc following this admission. Appreciate CM assistance - she will likely need to be discharged to get dalbavancin to finish out antibiotic coverage. Given her lack of PCP coverage or local ID follow up, will see Dr. Han from [facility] for continuity and close follow up - following up with local methadone clinic on discharge, appointment 01/15, Anxiety - extensive history of difficult family situations, foster care, abandonment etc. - started on lexapro 20 mg daily - repeat EKG showing QTc of 429, low concern for QT prolongation FEN/GI: regular diet, zofran for nausea scheduled DVT prophylaxis: lovenox Full code Dispo: medsurg (2) Bacteremia due to Gram-positive bacteria: (3) Septic embolism: (4) Opiate withdrawal: (5) Endocarditis: (6) Abnormal LFTs: (7) Septic shock: (8) Coagulopathy: Admission and Anticipated Discharge Date Admission Date: January 03, 2020 Supervising Physician Co-Signing Physician Notes I personally examined the patient and verified all laura points of history and exam, discussed case, and agree with decision making with Dr Han feeling about the same as yesterday - ie CP still worse than it was a few days ago, breathing still a little off compared to a few days ago- not worsening since yesterday, but not better either. dr han led extensive discussion over the phone w pt's aunt as well (at bedside, aunt on speakerphone, pt part of the convesration as well) vitals noted nad heent nc at mmm breathing unlabored. no accessory muscles good effort skin no rashes no pallor or icterus endocarditis -MRSA - continue dapto. given her worsneing sx, yesterday's w/u showed some evidence of pulmonary edema, enlarging vegetations, and worse TR. since pulmonary edema would not be explained by this - KILEY to better eval MR, ?abscess/sinus tract type pathology. thus far, while certainly worrisome situation, is not fitting with surgical criteria. continue medical care. group home - would be treating to complete course of treatment with either dalvance or dapto. pulmonary edema - acute diastolic from valvulopathy. ignacio x1 on 01/09, echo as above, follow bladder control loss - MRI Lspine reassuring, low threshold to check upper lesions (Tspine, brain, maybe Cspine) but since sx improving and could be explained by just fatigue from severity of illness. follow closely, does not seem to be an issue today foot pain - certainly concern on septic arthritis - but no open lesions, nothing appearing to require surgery - medical Rx for endocarditis at this time, follow anxiety - empathy/support/goal setting/lexapro - overall doing better IVDA/heroin addiction/withdrawal - titrating methadone here, set herself up w the clinic (right now her first appt would be 01/14, provided she's out of the hospital) otherwise as above Subjective COntinuing to have pain in her chest this AM. describes it as being worst in her right lower chest under her breast. Didn't sleep well due to pain and restlessness all night. Review of Systems Constitutional: + body aches Respiratory: + dyspnea and + pain on inspiration Cardiovascular: + chest pain; no palpitations and no edema Gastrointestinal: no nausea, no vomiting, no constipation and no diarrhea/loose stools Genitourinary: no dysuria Physical Exam Constitutional: + thin and cooperative Eyes: PERRL, conjunctivae normal, anicteric sclerae Respiratory: normal respiratory effort, lungs clear to auscultation normal respiratory effort and able to speak in complete sentences; no respiratory distress, no labored breathing, no retractions, no cough and no audible wheezes Auscultation: lungs clear to auscultation bilaterally; no crackles, no rales, no rhonchi and no wheezes Cardiovascular: Rate/Rhythm: regular rate and regular rhythm Heart Sounds: normal S1 and normal S2; no gallop, no murmur and no cardiac rub Vessels: posterior tibial pulses present Extremities: no pedal edema and no edema Gastrointestinal (Abdomen): normal bowel sounds, soft, nontender, no hepatosplenomegaly Musculoskeletal: no cyanosis or clubbing, extremities motor strength 5/5 TTP of ribs and intercostal muscles Skin: +Osler node on right elbow, painful lesions on base of foot, janeway lesions on arms Neurologic: PERRL, EOMI, accommodation nl, no face palsy, no dysarthria Results & Data Results & Data ([facility]) Vital Signs (Past 12 Hours) Vital Signs Temp Pulse Resp BP Pulse Ox 01/11/20 08:19 36.7 C 67 18 118/79 99 01/10/20 22:11 36.7 C 72 16 110/75 94 Laboratory Results WBC 5.77 K/uL (4.8-10.8) 01/09/20 06:54 RBC 3.34 M/uL (4.2-5.4) L 01/09/20 06:54 Hgb 9.1 g/dL (12.0-16.0) L 01/09/20 06:54 Hct 27.2 % (37-47) L 01/09/20 06:54 MCV 81.4 fL (80-100) 01/09/20 06:54 MCH 27.2 pg (25-34) 01/09/20 06:54 MCHC 33.5 g/dL (32-36) 01/09/20 06:54 RDW Std Deviation 48.8 fL (36.4-46.3) H 01/09/20 06:54 RDW Coeff of Liliya 16.6 % (11.5-14.5) H 01/09/20 06:54 Plt Count 267 K/uL (130-400) 01/09/20 06:54 MPV 10.0 fL (7.4-10.4) 01/09/20 06:54 Immature Gran % (Auto) 0.7 % 01/09/20 06:54 Neut % (Auto) 60.5 % 01/09/20 06:54 Lymph % (Auto) 30.3 % 01/09/20 06:54 Preston % (Auto) 4.5 % 01/09/20 06:54 Eos % (Auto) 4.0 % 01/09/20 06:54 Baso % (Auto) 0.0 % 01/09/20 06:54 Neut # (Auto) 3.49 K/uL (1.4-6.5) 01/09/20 06:54 Lymph # (Auto) 1.75 K/uL (1.2-3.4) 01/09/20 06:54 Preston # (Auto) 0.26 K/uL (0.11-0.59) 01/09/20 06:54 Eos # (Auto) 0.23 K/uL (0-0.5) 01/09/20 06:54 Baso # (Auto) 0.00 K/uL (0-0.2) 01/09/20 06:54 Immature Gran # (Auto) 0.04 K/uL (0.00-0.02) H 01/09/20 06:54 Toxic Granulation Occasional 01/06/20 04:22 Toxic Vacuolation 1+ 01/03/20 16:35 Dohle Bodies 1+ 01/05/20 05:24 Platelet Estimate Decreased (Normal) L 01/05/20 05:24 Echinocytes 1+ 01/06/20 04:22 ESR 73 mm/hr (0-21) H 01/03/20 16:35 PT 12.5 Seconds (9.0-12.0) H 01/06/20 04:22 INR 1.2 (0.9-1.1) H 01/06/20 04:22 APTT 33.6 Seconds (21.0-31.0) H 01/03/20 16:35 PTT Ratio 1.2 01/03/20 16:35 Fibrinogen 434 mg/dl (184-400) H 01/03/20 22:59 Fibrinogen Cancelled 01/03/20 22:59 Fibrin Degrad Products 10-40 mcg/ml (<10) H 01/03/20 22:59 D-Dimer 3110 ug/L FEU (0-500) H* 01/03/20 22:59 Sodium 140 mmol/L (136-145) 01/09/20 06:54 Potassium 4.6 mmol/L (3.5-5.1) 01/09/20 06:54 Chloride 111 mmol/L (98-107) H 01/09/20 06:54 Carbon Dioxide 26 mmol/L (21-32) 01/09/20 06:54 Anion Gap 3.0 (3-11) 01/09/20 06:54 BUN 4 mg/dl (7-18) L 01/09/20 06:54 Creatinine 0.68 mg/dl (0.6-1.2) 01/10/20 07:41 Est Cr Clr Drug Dosing 111.8 ml/min 01/10/20 07:41 Est GFR ( Amer) 138.9 01/10/20 07:41 Est GFR (Non-Af Amer) 119.9 01/10/20 07:41 BUN/Creatinine Ratio 5.2 (10-20) L 01/09/20 06:54 Glucose 90 mg/dl (70-99) 01/09/20 06:54 POC Glucose 159 mg/dl (70-99) H 01/05/20 17:41 Lactate 1.5 mmol/L (0.4-2.0) 01/03/20 21:01 Calcium 7.8 mg/dl (8.5-10.1) L 01/09/20 06:54 Phosphorus 3.0 mg/dl (2.5-4.9) 01/07/20 05:59 Magnesium 1.9 mg/dl (1.8-2.4) 01/07/20 05:59 Total Bilirubin 0.2 mg/dl (0.2-1) 01/08/20 06:48 Direct Bilirubin 0.2 mg/dl (0-0.2) 01/06/20 04:22 AST 18 U/L (15-37) 01/08/20 06:48 ALT 24 U/L (12-78) 01/08/20 06:48 Alkaline Phosphatase 79 U/L (45-117) 01/08/20 06:48 Total Creatine Kinase 9 U/L (26-192) L 01/08/20 15:08 Troponin I < 0.015 ng/ml (0-0.045) 01/03/20 16:35 C-Reactive Protein 21.30 mg/dl (0-0.29) H 01/03/20 16:35 Total Protein 5.5 gm/dl (6.4-8.2) L 01/08/20 06:48 Albumin 1.5 gm/dl (3.4-5.0) L 01/08/20 06:48 Globulin 4.0 gm/dl (2.5-4.0) 01/08/20 06:48 Albumin/Globulin Ratio 0.4 (0.9-2) L 01/08/20 06:48 Procalcitonin 2.38 ng/ml (0-0.5) H 01/03/20 16:35 TSH 1.640 uIu/ml (0.300-4.500) 01/03/20 16:35 HCG, Qual Negative (Negative) 01/03/20 16:35 Random Cortisol 41.64 mcg/dl 01/03/20 19:41 Urine Color Yellow 01/03/20 20:15 Urine Appearance Slightly Cloudy (Clear) 01/03/20 20:15 Urine pH 6.5 (4.5-7.5) 01/03/20 20:15 Ur Specific Madill <= 1.005 (1.000-1.030) 01/03/20 20:15 Urine Protein Negative (Negative) 01/03/20 20:15 Urine Glucose (UA) Negative (Negative) 01/03/20 20:15 Urine Ketones Negative (Negative) 01/03/20 20:15 Urine Blood Trace (Negative) H 01/03/20 20:15 Urine Nitrite Negative (Negative) 01/03/20 20:15 Urine Bilirubin Negative (Negative) 01/03/20 20:15 Urine Urobilinogen Negative (Negative) 01/03/20 20:15 Ur Leukocyte Esterase 2+ (Negative) H 01/03/20 20:15 Urine RBC 0-4 /hpf (0-4) 01/03/20 20:15 Urine WBC >30 /hpf (0-5) H 01/03/20 20:15 Ur Epithelial Cells >30 /lpf (0-5) H 01/03/20 20:15 Urine Bacteria 2+ (Negative) H 01/03/20 20:15 Urine Trichomonas Present (None Prsent) H 01/03/20 20:15 Nasal Screen MRSA (PCR) Positive (Negative) A 01/03/20 22:00 Stl C. diff Tox B Gene Negative Cdiff Gene (Neg) 01/05/20 14:34 Vancomycin Trough 6.5 mcg/ml (See Comment) 01/05/20 05:24 Salicylates < 1.7 mg/dl (2.8-20) L 01/03/20 19:41 Urine Opiates Screen Pos (Neg) H 01/03/20 20:15 U Codeine Confrm GC/MS NEGATIVE ng/mL (<50) 01/03/20 20:15 Ur Morphine (GC/MS) 442 ng/mL (<50) H 01/03/20 20:15 Ur Hydrocodone (GC/MS) NEGATIVE ng/mL (<50) 01/03/20 20:15 Ur Norhydrocodone NEGATIVE ng/mL (<50) 01/03/20 20:15 Ur Noroxycodone NEGATIVE ng/mL (<50) 01/03/20 20:15 Urine Oxycodone (GC/MS) NEGATIVE ng/mL (<50) 01/03/20 20:15 U Oxymorphone GC/MS NEGATIVE ng/mL (<50) 01/03/20 20:15 Ur Methadone, Qual Neg (Neg) 01/03/20 20:15 Ur Hydromorphone (GC/MS) NEGATIVE ng/mL (<50) 01/03/20 20:15 Acetaminophen 6 ug/ml (10-30) L 01/03/20 19:41 Urine Barbiturates Neg (Neg) 01/03/20 20:15 Ur Phencyclidine (PCP) Neg (Neg) 01/03/20 20:15 U Amphetamines Confirm 318 ng/mL (<250) H 01/03/20 20:15 U Amphetamin/Meth Scrn Pos (Neg) H 01/03/20 20:15 U Methamphetamin Confrm 892 ng/mL (<250) H 01/03/20 20:15 MDMA (Ecstasy) Screen Neg (Neg) 01/03/20 20:15 U Benzodiazepines Scrn Neg (Neg) 01/03/20 20:15 Ur Cocaine Metabolite Neg (Neg) 01/03/20 20:15 U Marijuana (THC) Screen Neg (Neg) 01/03/20 20:15 Drug Screen Comment SEE NOTE 01/03/20 20:15 COVID-19 Eval Order Covid19 Done at [facility] 01/03/20 22:00 COVID-19 PCR NEGATIVE (Negative) 01/03/20 22:00 Hepatitis A IgM Ab NON-REACTIVE (NON-REACTIVE) 01/03/20 19:41 Hep Bs Antigen Neg (Neg) 01/03/20 19:41 Hep B Core IgM Ab NON-REACTIVE (NON-REACTIVE) 01/03/20 19:41 Hepatitis C Antibody Neg (Neg) 01/03/20 19:41 HIV 1&2 Ab/P24 Ag 4thGn Neg (Neg) 01/04/20 04:31 Bld Cult Staph aureus PCR Positive (Negative) A 01/03/20 16:35 Blood Culture MRSA PCR Positive (Negative) A* 01/03/20 16:35 Resident Activity Tracking Resident Involvement: Resident Care Provided Care Provided: Adult Hospital Medicine
--- NOTE | 2020-01-11 10:28 | XCELERA ---
[id number]
[2020-01-11] MEDS: ENOXAPARIN INJ 40 MG/0.4 ML SYR SQ SCH (11:43)
[2020-01-11] MEDS: DAPTOmycin 575 MG in SYRINGE 0 ML IV SCH (14:34)
[2020-01-11] MEDS: DICLOFENAC SOD 1% GEL 100 GM TUBE EXT SCH ×2 (17:34→20:57)
[2020-01-11] MEDS: LIDOCAINE 5% 1 PATCH TD SCH (17:34)
--- NOTE | 2020-01-11 19:37 | Billing Data ---
Date of Service January 11, 2020 Coding Level of Care Code 62881 Subseq Hosp Care Lvl 3
[2020-01-11] MEDS: GABAPENTIN 400 MG CAP PO SCH (21:28)
[2020-01-12] MEDS: METHADONE HCL 5 MG TAB PO SCH ×4 (00:01→18:03)
[2020-01-12] MEDS: ACETAMINOPHEN 500 MG TAB PO SCH ×3 (05:53→21:02)
[2020-01-12] MEDS: MoRPHine SULFATE 2 MG/ML CARP IV SCH ×3 (05:56→22:29)
[2020-01-12] MEDS: ONDANSETRON INJ 2 MG/ML 2 ML VIAL IV SCH ×4 (05:58→22:29)
[2020-01-12] MEDS ORDERED: PROPOFOL IV EMULSION 10 MG/ML 20 ML VIAL IV ONE (07:17)
[2020-01-12 08:45] LABS: BUN Creatinine Ratio 12.2 (10-20); Calcium 8.6 mg/dl (8.5-10.1); Creatinine Clr Calc Pharmacy 83.6 ml/min; Est GFR (African American) 100.2; Est GFR (Non-African American) 86.5; Potassium 4.7 mmol/L (3.5-5.1)
[2020-01-12 08:47] LABS: Basophils # (auto) 0.01 K/uL (0-0.2); Basophils % (auto) 0.2 %; Eosinophils # (auto) 0.12 K/uL (0-0.5); Eosinophils % (auto) 2.1 %; Hematocrit (blood only) 29.3 % (37-47); Hemoglobin 9.2 g/dL (12.0-16.0); Immature Granulocytes # (auto) 0.06 K/uL (0.00-0.02); Lymphocytes # (auto) 1.77 K/uL (1.2-3.4); Lymphocytes % (auto) 30.8 %; Mean Corpuscular Hemoglobin 27.2 pg (25-34); Mean Corpuscular Hgb Conc 31.4 g/dL (32-36); Mean Corpuscular Volume 86.7 fL (80-100); Mean Platelet Volume 9.6 fL (7.4-10.4); Monocytes # (auto) 0.34 K/uL (0.11-0.59); Monocytes % (auto) 5.9 %; Neutrophils # (auto) 3.45 K/uL (1.4-6.5); Platelet Count 363 K/uL (130-400); RDW Coefficient of Variation 17.1 % (11.5-14.5); RDW Standard Deviation 53.1 fL (36.4-46.3); Red Blood Count 3.38 M/uL (4.2-5.4); White Blood Count 5.75 K/uL (4.8-10.8)
[2020-01-12] MEDS: NICOTINE 7 MG/24 HR TDSY TD SCH ×2 (09:00→10:11)
[2020-01-12] MEDS: KETOROLAC TROMETHAMINE 15 MG/ML VIAL IV PRN ×2 (09:14)
[2020-01-12] MEDS: DICLOFENAC SOD 1% GEL 100 GM TUBE EXT SCH ×4 (09:23→21:04)
--- NOTE | 2020-01-12 09:57 | Hospitalist Progress Note ---
Date of Service January 12, 2020 Assessment & Plan (1) Drug abuse, IV: 29-year-old female with history of prior Suboxone use and IV drug use with heroin presents with 2 weeks of fevers, chills, myalgias, hand and foot pain found to be in septic shock secondary to endocarditis with showering emboli. Hypoxia secondary Pulmonary Septic Emboli - Requiring 2L NC - CT Chest w/con (01/10/2020)- progression of nodular opacities with interval development of small bilateral pleural effusion. Endocarditis with MRSA Bacteremia - Repeat Blood cultures from 01/08 positive in 1 bottle for G+ cocci, repeat cultures ordered today - Repeat TTE showin cm vegetation of anterior leaflet of mitral valve, moderate to severe tricuspid regurgitation, small vegetation of tricuspid valve, - Per cardiology - no concern for progression of endocarditis - No rise in WBC count. - No fever. - continue IV Daptomycin . IV Drug abuse - slowly titrating up methadone dose - increased to 20 mg Q6H - monitor for oversuppression of respiratory drive - Tylenol 1000 mg Q8H, Toradol 15 mg Q6H for pain control, 400 mg Gabapentin QHS + 300 mg daily -HIV testing negative, Hepatitis panel negative -Will need social work assistance, psych services, drug/alcohol rehab, etc following this admission. - she will likely need to be discharged to get dalbavancin to finish out antibiotic coverage. Given her lack of PCP coverage or local ID follow up, will see Dr. Han from [facility] for continuity and close follow up - following up with local methadone clinic on discharge, appointment 01/15, Anxiety - extensive history of difficult family situations, foster care, abandonment etc. - started on lexapro 20 mg daily - repeat EKG showing QTc of 429, low concern for QT prolongation Malnutrition - albumin 1.5 - ?anasarca sec to it. - mental health nurse practitioner consulted for nutrition recommendations - discussed with patient eating a higher calorie + high protein diet Urinary incontinence: improving -Gaining more control over urine stream and able to hold bladder until she gets to the bathroom. - no bowel incontinence. - MRI lumbar spine w/wo con: negative for epidural abscess, vertebral compression of spinal cord. L5/S1 disc bulging compressing root of nerves. FEN/GI: regular diet, zofran for nausea scheduled DVT prophylaxis: lovenox Full code Dispo: medsurg (2) Bacteremia due to Gram-positive bacteria: (3) Septic embolism: (4) Opiate withdrawal: (5) Endocarditis: (6) Abnormal LFTs: (7) Septic shock: (8) Coagulopathy: (9) Anxiety: Admission and Anticipated Discharge Date Admission Date: January 03, 2020 Supervising Physician Co-Signing Physician Notes Resident Physician Supervision Note: I independently interviewed and examined the patient and verified the laura history and physical, reviewed labs and image studies, discussed the case with the resident Dr. Han and agree with the findings and care plan. Subjective Worsening body wide pain today.. She states that her back and legs and feet all feel swollen and that she is having increased difficulty breathing despite not using her nasal cannula at the moment. She states that overnight she "lost her breath" as she was having difficulty breathing in to take a deep inspiration. She describes it as not being able to push through the pain to fully breathe in. Review of Systems Constitutional: + chills, + body aches and + weakness Respiratory: + dyspnea and + pain on inspiration; no cough Cardiovascular: + chest pain and + edema; no palpitations Gastrointestinal: no abdominal pain, no nausea, no vomiting and no diarrhea/loose stools Neurologic: + abnormal movements (describes hand and leg spasms that have started with hospital stay); no loss of sensation and no numbness Physical Exam Constitutional: + thin and cooperative Eyes: PERRL, conjunctivae normal, anicteric sclerae Neck: normal visual inspection Respiratory: normal respiratory effort, lungs clear to auscultation normal respiratory effort and able to speak in complete sentences; no respiratory dis tress, no labored breathing, no retractions, no cough and no audible wheezes Auscultation: lungs clear to auscultation bilaterally; no crackles, no rales, no rhonchi and no wheezes Cardiovascular: Rate/Rhythm: regular rate and regular rhythm Heart Sounds: normal S1 and normal S2; no gallop, no murmur and no cardiac rub Vessels: posterior tibial pulses present Extremities: no pedal edema and no edema Gastrointestinal (Abdomen): normal bowel sounds, soft, nontender, no hepatosplenomegaly Inspection/Auscultation: abdomen normal to inspection and normal bowel sounds; abdomen not distended Percussion/Palpation: + abdomen tender and abdomen soft; no guarding, abdomen not rigid and no abdominal mass Musculoskeletal: no cyanosis or clubbing, extremities motor strength 5/5 Skin: + Osler nodes and Janeway lesions present on hands and feet, elbows Psychiatric: Orientation: alert and oriented x 3 Affect: + tearful affect Mood: + depressed mood and + anxious mood Thought Content: + hopelessness and + loneliness Results & Data Results & Data ([facility]) Vital Signs (Past 12 Hours) Vital Signs Temp Pulse Resp BP Pulse Ox 01/12/20 07:51 36.8 C 66 16 111/72 98 01/12/20 06:10 64 13 98 01/11/20 23:41 36.6 C 76 14 120/81 99 Laboratory Results WBC 5.75 K/uL (4.8-10.8) 01/12/20 07:44 RBC 3.38 M/uL (4.2-5.4) L 01/12/20 07:44 Hgb 9.2 g/dL (12.0-16.0) L 01/12/20 07:44 Hct 29.3 % (37-47) L 01/12/20 07:44 MCV 86.7 fL (80-100) 01/12/20 07:44 MCH 27.2 pg (25-34) 01/12/20 07:44 MCHC 31.4 g/dL (32-36) L 01/12/20 07:44 RDW Std Deviation 53.1 fL (36.4-46.3) H 01/12/20 07:44 RDW Coeff of Liliya 17.1 % (11.5-14.5) H 01/12/20 07:44 Plt Count 363 K/uL (130-400) 01/12/20 07:44 MPV 9.6 fL (7.4-10.4) 01/12/20 07:44 Immature Gran % (Auto) 1.0 % 01/12/20 07:44 Neut % (Auto) 60.0 % 01/12/20 07:44 Lymph % (Auto) 30.8 % 01/12/20 07:44 [place] % (Auto) 5.9 % 01/12/20 07:44 Eos % (Auto) 2.1 % 01/12/20 07:44 Baso % (Auto) 0.2 % 01/12/20 07:44 Neut # (Auto) 3.45 K/uL (1.4-6.5) 01/12/20 07:44 Lymph # (Auto) 1.77 K/uL (1.2-3.4) 01/12/20 07:44 [place] # (Auto) 0.34 K/uL (0.11-0.59) 01/12/20 07:44 Eos # (Auto) 0.12 K/uL (0-0.5) 01/12/20 07:44 Baso # (Auto) 0.01 K/uL (0-0.2) 01/12/20 07:44 Immature Gran # (Auto) 0.06 K/uL (0.00-0.02) H 01/12/20 07:44 Toxic Granulation Occasional 01/06/20 04:22 Toxic Vacuolation 1+ 01/03/20 16:35 Dohle Bodies 1+ 01/05/20 05:24 Platelet Estimate Decreased (Normal) L 01/05/20 05:24 Echinocytes 1+ 01/06/20 04:22 ESR 73 mm/hr (0-21) H 01/03/20 16:35 PT 12.5 Seconds (9.0-12.0) H 01/06/20 04:22 INR 1.2 (0.9-1.1) H 01/06/20 04:22 APTT 33.6 Seconds (21.0-31.0) H 01/03/20 16:35 PTT Ratio 1.2 01/03/20 16:35 Fibrinogen 434 mg/dl (184-400) H 01/03/20 22:59 Fibrinogen Cancelled 01/03/20 22:59 Fibrin Degrad Products 10-40 mcg/ml (<10) H 01/03/20 22:59 D-Dimer 3110 ug/L FEU (0-500) H* 01/03/20 22:59 Sodium 141 mmol/L (136-145) 01/12/20 07:44 Potassium 4.7 mmol/L (3.5-5.1) 01/12/20 07:44 Chloride 106 mmol/L (98-107) 01/12/20 07:44 Carbon Dioxide 32 mmol/L (21-32) 01/12/20 07:44 Anion Gap 3.0 (3-11) 01/12/20 07:44 BUN 11 mg/dl (7-18) 01/12/20 07:44 Creatinine 0.91 mg/dl (0.6-1.2) 01/12/20 07:44 Est Cr Clr Drug Dosing 83.6 ml/min 01/12/20 07:44 Est GFR ( Amer) 100.2 01/12/20 07:44 Est GFR (Non-Af Amer) 86.5 01/12/20 07:44 BUN/Creatinine Ratio 12.2 (10-20) 01/12/20 07:44 Glucose 85 mg/dl (70-99) 01/12/20 07:44 POC Glucose 159 mg/dl (70-99) H 01/05/20 17:41 Lactate 1.5 mmol/L (0.4-2.0) 01/03/20 21:01 Calcium 8.6 mg/dl (8.5-10.1) 01/12/20 07:44 Phosphorus 3.0 mg/dl (2.5-4.9) 01/07/20 05:59 Magnesium 1.9 mg/dl (1.8-2.4) 01/07/20 05:59 Total Bilirubin 0.2 mg/dl (0.2-1) 01/08/20 06:48 Direct Bilirubin 0.2 mg/dl (0-0.2) 01/06/20 04:22 AST 18 U/L (15-37) 01/08/20 06:48 ALT 24 U/L (12-78) 01/08/20 06:48 Alkaline Phosphatase 79 U/L (45-117) 01/08/20 06:48 Total Creatine Kinase 9 U/L (26-192) L 01/08/20 15:08 Troponin I < 0.015 ng/ml (0-0.045) 01/03/20 16:35 C-Reactive Protein 21.30 mg/dl (0-0.29) H 01/03/20 16:35 Total Protein 5.5 gm/dl (6.4-8.2) L 01/08/20 06:48 Albumin 1.5 gm/dl (3.4-5.0) L 01/08/20 06:48 Globulin 4.0 gm/dl (2.5-4.0) 08/20/20 06:48 Albumin/Globulin Ratio 0.4 (0.9-2) L 01/08/20 06:48 Procalcitonin 2.38 ng/ml (0-0.5) H 01/03/20 16:35 TSH 1.640 uIu/ml (0.300-4.500) 01/03/20 16:35 HCG, Qual Negative (Negative) 01/03/20 16:35 Random Cortisol 41.64 mcg/dl 01/03/20 19:41 Urine Color Yellow 01/03/20 20:15 Urine Appearance Slightly Cloudy (Clear) 01/03/20 20:15 Urine pH 6.5 (4.5-7.5) 01/03/20 20:15 Ur Specific [place] <= 1.005 (1.000-1.030) 01/03/20 20:15 Urine Protein Negative (Negative) 01/03/20 20:15 Urine Glucose (UA) Negative (Negative) 01/03/20 20:15 Urine Ketones Negative (Negative) 01/03/20 20:15 Urine Blood Trace (Negative) H 01/03/20 20:15 Urine Nitrite Negative (Negative) 01/03/20 20:15 Urine Bilirubin Negative (Negative) 01/03/20 20:15 Urine Urobilinogen Negative (Negative) 01/03/20 20:15 Ur Leukocyte Esterase 2+ (Negative) H 01/03/20 20:15 Urine RBC 0-4 /hpf (0-4) 01/03/20 20:15 Urine WBC >30 /hpf (0-5) H 01/03/20 20:15 Ur Epithelial Cells >30 /lpf (0-5) H 01/03/20 20:15 Urine Bacteria 2+ (Negative) H 01/03/20 20:15 Urine Trichomonas Present (None Prsent) H 01/03/20 20:15 Nasal Screen MRSA (PCR) Positive (Negative) A 01/03/20 22:00 Stl C. diff Tox B Gene Negative Cdiff Gene (Neg) 01/05/20 14:34 Vancomycin Trough 6.5 mcg/ml (See Comment) 01/05/20 05:24 Salicylates < 1.7 mg/dl (2.8-20) L 01/03/20 19:41 Urine Opiates Screen Pos (Neg) H 01/03/20 20:15 U Codeine Confrm GC/MS NEGATIVE ng/mL (<50) 01/03/20 20:15 Ur Morphine (GC/MS) 442 ng/mL (<50) H 01/03/20 20:15 Ur Hydrocodone (GC/MS) NEGATIVE ng/mL (<50) 01/03/20 20:15 Ur Norhydrocodone NEGATIVE ng/mL (<50) 01/03/20 20:15 Ur Noroxycodone NEGATIVE ng/mL (<50) 01/03/20 20:15 Urine Oxycodone (GC/MS) NEGATIVE ng/mL (<50) 01/03/20 20:15 U Oxymorphone GC/MS NEGATIVE ng/mL (<50) 01/03/20 20:15 Ur Methadone, Qual Neg (Neg) 01/03/20 20:15 Ur Hydromorphone (GC/MS) NEGATIVE ng/mL (<50) 01/03/20 20:15 Acetaminophen 6 ug/ml (10-30) L 01/03/20 19:41 Urine Barbiturates Neg (Neg) 01/03/20 20:15 Ur Phencyclidine (PCP) Neg (Neg) 01/03/20 20:15 U Amphetamines Confirm 318 ng/mL (<250) H 01/03/20 20:15 U Amphetamin/Meth Scrn Pos (Neg) H 01/03/20 20:15 U Methamphetamin Confrm 892 ng/mL (<250) H 01/03/20 20:15 MDMA (Ecstasy) Screen Neg (Neg) 01/03/20 20:15 U Benzodiazepines Scrn Neg (Neg) 01/03/20 20:15 Ur Cocaine Metabolite Neg (Neg) 01/03/20 20:15 U Marijuana (THC) Screen Neg (Neg) 01/03/20 20:15 Drug Screen Comment SEE NOTE 01/03/20 20:15 COVID-19 Eval Order Covid19 Done at [facility] 01/03/20 22:00 COVID-19 PCR NEGATIVE (Negative) 01/03/20 22:00 Hepatitis A IgM Ab NON-REACTIVE (NON-REACTIVE) 01/03/20 19:41 Hep Bs Antigen Neg (Neg) 01/03/20 19:41 Hep B Core IgM Ab NON-REACTIVE (NON-REACTIVE) 01/03/20 19:41 Hepatitis C Antibody Neg (Neg) 01/03/20 19:41 HIV 1&2 Ab/P24 Ag 4thGn Neg (Neg) 01/04/20 04:31 Bld Cult Staph aureus PCR Positive (Negative) A 01/03/20 16:35 Blood Culture MRSA PCR Positive (Negative) A* 01/03/20 16:35 Resident Activity Tracking Resident Involvement: Resident Care Provided Care Provided: Adult Hospital Medicine
[2020-01-12] MEDS: NYSTATIN SUSP 500,000 U/5 ML UDC PO SCH ×4 (10:13→21:03)
[2020-01-12] MEDS: ESCITALOPRAM OXALATE 20 MG TAB PO SCH (10:13)
[2020-01-12] MEDS: GABAPENTIN 300 MG CAP PO SCH (10:13)
[2020-01-12] MEDS: PANTOprazole 40 MG TAB PO SCH (10:14)
[2020-01-12] MEDS: ENOXAPARIN INJ 40 MG/0.4 ML SYR SQ SCH (13:03)
[2020-01-12] MEDS: DAPTOmycin 575 MG in SYRINGE 0 ML IV SCH (17:26)
[2020-01-12] MEDS: LIDOCAINE 5% 1 PATCH TD SCH (18:03)
[2020-01-12] MEDS: GABAPENTIN 400 MG CAP PO SCH (22:29)
[2020-01-13] MEDS: METHADONE HCL 5 MG TAB PO SCH ×2 (00:06→06:02)
[2020-01-13] MEDS: ACETAMINOPHEN 500 MG TAB PO SCH ×3 (06:03→20:28)
[2020-01-13] MEDS: ONDANSETRON INJ 2 MG/ML 2 ML VIAL IV SCH ×4 (06:04→21:57)
[2020-01-13] MEDS: MoRPHine SULFATE 2 MG/ML CARP IV SCH ×3 (06:08→21:57)
[2020-01-13] MEDS: NICOTINE 7 MG/24 HR TDSY TD SCH (08:54)
[2020-01-13] MEDS: KETOROLAC TROMETHAMINE 15 MG/ML VIAL IV PRN (08:55)
[2020-01-13] MEDS: GABAPENTIN 300 MG CAP PO SCH (12:11)
[2020-01-13] MEDS: DICLOFENAC SOD 1% GEL 100 GM TUBE EXT SCH ×4 (12:12→20:35)
[2020-01-13] MEDS: NYSTATIN SUSP 500,000 U/5 ML UDC PO SCH ×3 (12:12→17:27)
--- NOTE | 2020-01-13 12:33 | Hospitalist Progress Note ---
Date of Service January 13, 2020 Assessment & Plan (1) Drug abuse, IV: 29-year-old female with history of prior Suboxone use and IV drug use with heroin presents with 2 weeks of fevers, chills, myalgias, hand and foot pain found to be in septic shock secondary to endocarditis with showering emboli. Hypoxia secondary to Pulmonary Septic Emboli - Requiring 2L NC - CT Chest w/con (01/10/2020)- progression of nodular opacities with interval development of small bilateral pleural effusion. Endocarditis with MRSA Bacteremia - Blood cultures from 01/10 negative at 48 hours - Blood cultures from 01/11 negative at 24 hours - Repeat TTE 01/10 showin cm vegetation of anterior leaflet of mitral valve, moderate to severe tricuspid regurgitation, small vegetation of tricuspid valve, - Per cardiology - no concern for progression of endocarditis - WBC stable, no rise in count. - No fever. - continue IV Daptomycin - isinger ID consult: 500 mg of Dalvance weekly with weekly CBC, CMP, CK for duration of treatment. IV Drug abuse/opiate withdrawal - slowly titrating up methadone dose - increased to 50 mg twice daily - monitor for oversuppression of respiratory drive - Tylenol 1000 mg Q8H, Toradol 15 mg Q6H for pain control, 400 mg Gabapentin QHS + 300 mg daily - Will need social work assistance, psych services, drug/alcohol rehab, etc following this admission. - following up with local methadone clinic on discharge, appointment 01/15 Anxiety - extensive history of difficult family situations, foster care, abandonment etc. - started on lexapro 20 mg daily - repeat EKG showing QTc of 429, low concern for QT prolongation Malnutrition - albumin 1.5 - ?secondary anasarca - shooting gallery operator consulted for nutrition recommendations - discussed with patient eating a higher calorie + high protein diet - added boost Urinary incontinence: improving - Gaining more control over urine stream and able to hold bladder until she gets to the bathroom. - no bowel incontinence. - MRI lumbar spine w/wo con: negative for epidural abscess, vertebral compression of spinal cord. L5/S1 disc bulging compressing root of nerves. FEN/GI: regular diet, DVT prophylaxis: lovenox Full code Dispo: medsurg (2) Bacteremia due to Gram-positive bacteria: (3) Septic embolism: (4) Opiate withdrawal: (5) Endocarditis: (6) Abnormal LFTs: (7) Septic shock: (8) Coagulopathy: (9) Anxiety: Admission and Anticipated Discharge Date Admission Date: January 03, 2020 Supervising Physician Co-Signing Physician Notes Resident Physician Supervision Note: I independently interviewed and examined the patient and verified the laura history and physical, reviewed labs and image studies, discussed the case with the resident Dr. Han and agree with the findings and care plan. Subjective Patient continues to complain of body wide pain this morning. She states that it is difficult for her to move in bed because it is so painful. She also is concerned that her back and legs are more swollen today. She is unsure why all of this is happening. She keeps attesting to having chest and rib pain however she does not want to use lidocaine patches or any topical medication to help with the muscle pain. She repeatedly states "I cannot do this anymore ". Review of Systems Constitutional: + body aches and + weakness Respiratory: + dyspnea and + pain on inspiration Cardiovascular: + chest pain and + edema; no palpitations Psychiatric: + hopelessness Physical Exam Constitutional: + acute distress, + thin and + frail appearing; + not well nourished, + not well groomed and + uncomfortable Neck: normal visual inspection Respiratory: normal respiratory effort, lungs clear to auscultation normal respiratory effort and able to speak in complete sentences; no respiratory distress and no labored breathing Cardiovascular: Rate/Rhythm: regular rate and regular rhythm Heart Sounds: normal S1 and normal S2; no gallop, no murmur and no cardiac rub Vessels: posterior tibial pulses present Extremities: no pedal edema and no edema Gastrointestinal (Abdomen): normal bowel sounds, soft, nontender, no hepatosplenomegaly Inspection/Auscultation: abdomen normal to inspection and normal bowel sounds; abdomen not distended Percussion/Palpation: + abdomen tender and abdomen soft; no guarding, abdomen not rigid and no abdominal mass Musculoskeletal: no cyanosis or clubbing, extremities motor strength 5/5 Skin: + Osler nodes and Jan[place]ay lesions present on hands and feet, elbows Neurologic: No TTP of cervical, thoracic vertebrae. No visible back edema. Psychiatric: Orientation: alert and oriented x 3 Affect: + tearful affect Mood: + depressed mood and + anxious mood Thought Content: + hopelessness and + loneliness Results & Data Results & Data ([facility]) Vital Signs (Past 12 Hours) Vital Signs Temp Pulse Resp BP Pulse Ox 01/13/20 07:42 37.0 C 77 16 116/70 93 Laboratory Results WBC 5.75 K/uL (4.8-10.8) 01/12/20 07:44 RBC 3.38 M/uL (4.2-5.4) L 01/12/20 07:44 Hgb 9.2 g/dL (12.0-16.0) L 01/12/20 07:44 Hct 29.3 % (37-47) L 01/12/20 07:44 MCV 86.7 fL (80-100) 01/12/20 07:44 MCH 27.2 pg (25-34) 01/12/20 07:44 MCHC 31.4 g/dL (32-36) L 01/12/20 07:44 RDW Std Deviation 53.1 fL (36.4-46.3) H 01/12/20 07:44 RDW Coeff of Liliya 17.1 % (11.5-14.5) H 01/12/20 07:44 Plt Count 363 K/uL (130-400) 01/12/20 07:44 MPV 9.6 fL (7.4-10.4) 01/12/20 07:44 Immature Gran % (Auto) 1.0 % 01/12/20 07:44 Neut % (Auto) 60.0 % 01/12/20 07:44 Lymph % (Auto) 30.8 % 01/12/20 07:44 [place] % (Auto) 5.9 % 01/12/20 07:44 Eos % (Auto) 2.1 % 01/12/20 07:44 Baso % (Auto) 0.2 % 01/12/20 07:44 Neut # (Auto) 3.45 K/uL (1.4-6.5) 01/12/20 07:44 Lymph # (Auto) 1.77 K/uL (1.2-3.4) 01/12/20 07:44 [place] # (Auto) 0.34 K/uL (0.11-0.59) 01/12/20 07:44 Eos # (Auto) 0.12 K/uL (0-0.5) 01/12/20 07:44 Baso # (Auto) 0.01 K/uL (0-0.2) 01/12/20 07:44 Immature Gran # (Auto) 0.06 K/uL (0.00-0.02) H 01/12/20 07:44 Toxic Granulation Occasional 01/06/20 04:22 Toxic Vacuolation 1+ 01/03/20 16:35 Dohle Bodies 1+ 01/05/20 05:24 Platelet Estimate Decreased (Normal) L 01/05/20 05:24 Echinocytes 1+ 01/06/20 04:22 ESR 73 mm/hr (0-21) H 01/03/20 16:35 PT 12.5 Seconds (9.0-12.0) H 01/06/20 04:22 INR 1.2 (0.9-1.1) H 01/06/20 04:22 APTT 33.6 Seconds (21.0-31.0) H 01/03/20 16:35 PTT Ratio 1.2 01/03/20 16:35 Fibrinogen 434 mg/dl (184-400) H 01/03/20 22:59 Fibrinogen Cancelled 01/03/20 22:59 Fibrin Degrad Products 10-40 mcg/ml (<10) H 01/03/20 22:59 D-Dimer 3110 ug/L FEU (0-500) H* 01/03/20 22:59 Sodium 141 mmol/L (136-145) 01/12/20 07:44 Potassium 4.7 mmol/L (3.5-5.1) 01/12/20 07:44 Chloride 106 mmol/L (98-107) 01/12/20 07:44 Carbon Dioxide 32 mmol/L (21-32) 01/12/20 07:44 Anion Gap 3.0 (3-11) 01/12/20 07:44 BUN 11 mg/dl (7-18) 01/12/20 07:44 Creatinine 0.91 mg/dl (0.6-1.2) 01/12/20 07:44 Est Cr Clr Drug Dosing 83.6 ml/min 01/12/20 07:44 Est GFR ( Amer) 100.2 01/12/20 07:44 Est GFR (Non-Af Amer) 86.5 01/12/20 07:44 BUN/Creatinine Ratio 12.2 (10-20) 01/12/20 07:44 Glucose 85 mg/dl (70-99) 01/12/20 07:44 POC Glucose 159 mg/dl (70-99) H 01/05/20 17:41 Lactate 1.5 mmol/L (0.4-2.0) 01/03/20 21:01 Calcium 8.6 mg/dl (8.5-10.1) 01/12/20 07:44 Phosphorus 3.0 mg/dl (2.5-4.9) 01/07/20 05:59 Magnesium 1.9 mg/dl (1.8-2.4) 01/07/20 05:59 Total Bilirubin 0.2 mg/dl (0.2-1) 01/08/20 06:48 Direct Bilirubin 0.2 mg/dl (0-0.2) 01/06/20 04:22 AST 18 U/L (15-37) 01/08/20 06:48 ALT 24 U/L (12-78) 01/08/20 06:48 Alkaline Phosphatase 79 U/L (45-117) 01/08/20 06:48 Total Creatine Kinase 9 U/L (26-192) L 01/08/20 15:08 Troponin I < 0.015 ng/ml (0-0.045) 01/03/20 16:35 C-Reactive Protein 21.30 mg/dl (0-0.29) H 01/03/20 16:35 Total Protein 5.5 gm/dl (6.4-8.2) L 01/08/20 06:48 Albumin 1.5 gm/dl (3.4-5.0) L 01/08/20 06:48 Globulin 4.0 gm/dl (2.5-4.0) 01/08/20 06:48 Albumin/Globulin Ratio 0.4 (0.9-2) L 01/08/20 06:48 Procalcitonin 2.38 ng/ml (0-0.5) H 01/03/20 16:35 TSH 1.640 uIu/ml (0.300-4.500) 01/03/20 16:35 HCG, Qual Negative (Negative) 01/03/20 16:35 Random Cortisol 41.64 mcg/dl 01/03/20 19:41 Urine Color Yellow 01/03/20 20:15 Urine Appearance Slightly Cloudy (Clear) 01/03/20 20:15 Urine pH 6.5 (4.5-7.5) 01/03/20 20:15 Ur Specific [place] <= 1.005 (1.000-1.030) 01/03/20 20:15 Urine Protein Negative (Negative) 01/03/20 20:15 Urine Glucose (UA) Negative (Negative) 01/03/20 20:15 Urine Ketones Negative (Negative) 01/03/20 20:15 Urine Blood Trace (Negative) H 01/03/20 20:15 Urine Nitrite Negative (Negative) 01/03/20 20:15 Urine Bilirubin Negative (Negative) 01/03/20 20:15 Urine Urobilinogen Negative (Negative) 01/03/20 20:15 Ur Leukocyte Esterase 2+ (Negative) H 01/03/20 20:15 Urine RBC 0-4 /hpf (0-4) 01/03/20 20:15 Urine WBC >30 /hpf (0-5) H 01/03/20 20:15 Ur Epithelial Cells >30 /lpf (0-5) H 01/03/20 20:15 Urine Bacteria 2+ (Negative) H 01/03/20 20:15 Urine Trichomonas Present (None Prsent) H 01/03/20 20:15 Nasal Screen MRSA (PCR) Positive (Negative) A 01/03/20 22:00 Stl C. diff Tox B Gene Negative Cdiff Gene (Neg) 01/05/20 14:34 Vancomycin Trough 6.5 mcg/ml (See Comment) 01/05/20 05:24 Salicylates < 1.7 mg/dl (2.8-20) L 01/03/20 19:41 Urine Opiates Screen Pos (Neg) H 01/03/20 20:15 U Codeine Confrm GC/MS NEGATIVE ng/mL (<50) 01/03/20 20:15 Ur Morphine (GC/MS) 442 ng/mL (<50) H 01/03/20 20:15 Ur Hydrocodone (GC/MS) NEGATIVE ng/mL (<50) 01/03/20 20:15 Ur Norhydrocodone NEGATIVE ng/mL (<50) 01/03/20 20:15 Ur Noroxycodone NEGATIVE ng/mL (<50) 01/03/20 20:15 Urine Oxycodone (GC/MS) NEGATIVE ng/mL (<50) 01/03/20 20:15 U Oxymorphone GC/MS NEGATIVE ng/mL (<50) 01/03/20 20:15 Ur Methadone, Qual Neg (Neg) 01/03/20 20:15 Ur Hydromorphone (GC/MS) NEGATIVE ng/mL (<50) 01/03/20 20:15 Acetaminophen 6 ug/ml (10-30) L 01/03/20 19:41 Urine Barbiturates Neg (Neg) 01/03/20 20:15 Ur Phencyclidine (PCP) Neg (Neg) 01/03/20 20:15 U Amphetamines Confirm 318 ng/mL (<250) H 01/03/20 20:15 U Amphetamin/Meth Scrn Pos (Neg) H 01/03/20 20:15 U Methamphetamin Confrm 892 ng/mL (<250) H 01/03/20 20:15 MDMA (Ecstasy) Screen Neg (Neg) 01/03/20 20:15 U Benzodiazepines Scrn Neg (Neg) 01/03/20 20:15 Ur Cocaine Metabolite Neg (Neg) 01/03/20 20:15 U Marijuana (THC) Screen Neg (Neg) 01/03/20 20:15 Drug Screen Comment SEE NOTE 01/03/20 20:15 COVID-19 Eval Order Covid19 Done at [facility] 01/03/20 22:00 COVID-19 PCR NEGATIVE (Negative) 01/03/20 22:00 Hepatitis A IgM Ab NON-REACTIVE (NON-REACTIVE) 01/03/20 19:41 Hep Bs Antigen Neg (Neg) 01/03/20 19:41 Hep B Core IgM Ab NON-REACTIVE (NON-REACTIVE) 01/03/20 19:41 Hepatitis C Antibody Neg (Neg) 01/03/20 19:41 HIV 1&2 Ab/P24 Ag 4thGn Neg (Neg) 01/04/20 04:31 Bld Cult Staph aureus PCR Positive (Negative) A 01/03/20 16:35 Blood Culture MRSA PCR Positive (Negative) A* 01/03/20 16:35 Resident Activity Tracking Resident Involvement: Resident Care Provided Care Provided: Adult [facility] Medicine
[2020-01-13] MEDS ORDERED: METHADONE HCL 5 MG TAB PO ONE (13:43)
[2020-01-13] MEDS: ENOXAPARIN INJ 40 MG/0.4 ML SYR SQ SCH (13:49)
[2020-01-13] MEDS: PANTOprazole 40 MG TAB PO SCH (13:49)
[2020-01-13] MEDS: ESCITALOPRAM OXALATE 20 MG TAB PO SCH (13:49)
[2020-01-13] MEDS: DAPTOmycin 575 MG in SYRINGE 0 ML IV SCH (15:05)
--- NOTE | 2020-01-13 16:30 | Communication Note ---
Date of Service: January 13, 2020 Called [employer] ID consult service to discuss Dalvance treatment, message was forwarded to Dr. Finley who relayed treatment recommendations via phone pramod burnett. Their service recommends 6 weeks of treatment from 1st negative blood culture with dalvance 500mg weekly IV dosing. Recommend weekly CBC, CMP, and CK for the duration of treatment.
[2020-01-13] MEDS: LACTOBACILLUS ACIDOPHILUS (FLORANEX) TAB PO SCH ×2 (17:26→20:33)
[2020-01-13] MEDS: LIDOCAINE 5% 1 PATCH TD SCH (17:27)
[2020-01-13] MEDS ORDERED: METHADONE HCL 5 MG TAB PO SCH ×2 (18:00→21:00)
[2020-01-13] MEDS: METHADONE HCL 10 MG TAB PO SCH (18:05)
[2020-01-13] MEDS: GABAPENTIN 400 MG CAP PO SCH (20:33)
[2020-01-13] MEDS ORDERED: METHADONE HCL 10 MG TAB PO SCH (21:00)
[2020-01-14] MEDS: ONDANSETRON INJ 2 MG/ML 2 ML VIAL IV SCH ×2 (04:02→10:06)
[2020-01-14] MEDS: ACETAMINOPHEN 500 MG TAB PO SCH ×2 (04:02→12:35)
[2020-01-14] MEDS: MoRPHine SULFATE 2 MG/ML CARP IV SCH (05:39)
--- NOTE | 2020-01-14 08:34 | Hospitalist Progress Note ---
Date of Service January 14, 2020 Assessment & Plan (1) Drug abuse, IV: 29-year-old female with history of prior Suboxone use and IV drug use with heroin presents with 2 weeks of fevers, chills, myalgias, hand and foot pain found to be in septic shock secondary to endocarditis with showering emboli. Hypoxia secondary to Pulmonary Septic Emboli - Requiring 2L NC - CT Chest w/con (01/10/2020)- progression of nodular opacities with interval development of small bilateral pleural effusion. Endocarditis with MRSA Bacteremia - Blood cultures from 01/10 negative at 48 hours - Blood cultures from 01/11 negative at 24 hours - Repeat TTE 01/10 showin cm vegetation of anterior leaflet of mitral valve, moderate to severe tricuspid regurgitation, small vegetation of tricuspid valve, - Per cardiology - no concern for progression of endocarditis - WBC stable, no rise in count. - No fever. - continue IV Daptomycin - [facility] consult: 500 mg of Dalvance weekly with weekly CBC, CMP, CK for duration of treatment. IV Drug abuse/opiate withdrawal - slowly titrating up methadone dose - increased to 50 mg twice daily - monitor for oversuppression of respiratory drive - Tylenol 1000 mg Q8H, Toradol 15 mg Q6H for pain control, 400 mg Gabapentin QHS + 300 mg daily - Will need social work assistance, psych services, drug/alcohol rehab, etc following this admission. - following up with local methadone clinic on discharge, appointment 01/15 Anxiety - extensive history of difficult family situations, foster care, abandonment etc. - started on lexapro 20 mg daily - repeat EKG showing QTc of 429, low concern for QT prolongation Malnutrition - albumin 1.5 - ?secondary anasarca - cosmetics demonstrator consulted for nutrition recommendations - discussed with patient eating a higher calorie + high protein diet - added boost Urinary incontinence: improving - Gaining more control over urine stream and able to hold bladder until she gets to the bathroom. - no bowel incontinence. - MRI lumbar spine w/wo con: negative for epidural abscess, vertebral compression of spinal cord. L5/S1 disc bulging compressing root of nerves. FEN/GI: regular diet, DVT prophylaxis: lovenox Full code Dispo: medsur Admission and Anticipated Discharge Date Admission Date: January 03, 2020 Results & Data Results & Data ([facility]) Vital Signs (Past 12 Hours) Vital Signs Temp Pulse Resp BP Pulse Ox 01/14/20 07:25 36.7 C 76 16 108/73 95 01/13/20 23:07 36.8 C 86 18 106/66 98 01/13/20 22:03 36.9 C 76 16 116/77 92
[2020-01-14] MEDS: METHADONE HCL 10 MG TAB PO SCH ×2 (09:09→14:17)
[2020-01-14] MEDS: NICOTINE 7 MG/24 HR TDSY TD SCH (09:10)
[2020-01-14] MEDS: DICLOFENAC SOD 1% GEL 100 GM TUBE EXT SCH ×2 (09:11→13:13)
[2020-01-14] MEDS: GABAPENTIN 300 MG CAP PO SCH (09:11)
[2020-01-14] MEDS: PANTOprazole 40 MG TAB PO SCH (09:11)
[2020-01-14] MEDS: LACTOBACILLUS ACIDOPHILUS (FLORANEX) TAB PO SCH ×2 (09:11→12:34)
[2020-01-14] MEDS: ESCITALOPRAM OXALATE 20 MG TAB PO SCH (09:12)
[2020-01-14] MEDS: KETOROLAC TROMETHAMINE 15 MG/ML VIAL IV PRN (10:06)
[2020-01-14] MEDS: ENOXAPARIN INJ 40 MG/0.4 ML SYR SQ SCH (10:07)
[2020-01-14] MEDS ORDERED: DEXTROSE 5% IV ONE (14:00)
[2020-01-14] MEDS ORDERED: DALBAVANCIN IV ONE (14:00)
--- NOTE | 2020-01-14 14:39 | Discharge Summary ---
Date of Service January 14, 2020 Admission HPI Per Admitting Provider 29yo female with h/o prior suboxone use and recent IV drug abuse (heroin) presents with 2+ weeks of fevers to 104 degrees, chills, diffuse myalgias, severe foot and hand pain starting 2 days ago, "bruises" on her hands/feet also starting 2 days ago, headache, pleuritic chest pain for several days, very poor appetite, dizziness/lightheadedness, and simply feeling unwell. She openly admits to IV drug abuse starting in the last couple of months. She states that she had run out of her suboxone and thus turned to street drugs. She admits to using IV heroin, typically injecting in the arms. She denies sick contacts or travel. Sometime about 2 weeks ago she was tested for COVID-19 in [place] and her test was negative. Denies loss of taste or smell; denies ear pain, sore throat, nasal congestion, abdominal pain, vomiting or diarrhea. She verbally consents to have HIV testing as well as hepatitis testing. Admission Exam Per Admitting Provider Constitutional: + acute distress (in body-wide pain ), + ill appearing and + frail appearing; no altered mental status Eyes: + anicteric sclerae and PERRL ENMT: Mouth: + tongue abnormality (thick residue - thrush? ) and + dry oral mucous membranes Neck: trachea midline, no thyromegaly Respiratory: + tachypneic Auscultation: + crackles (b/l bases ) Cardiovascular: Rate/Rhythm: regular rhythm and + tachycardic Heart Sounds: normal S1 and normal S2; no murmur Vessels: posterior tibial pulses present and dorsalis pedis pulses present; no JVD Extremities: no edema Gastrointestinal (Abdomen): Inspection/Auscultation: normal bowel sounds Percussion/Palpation: + abdomen tender (RUQ), abdomen soft and + hepatosplenomegaly; no guarding Musculoskeletal: Extremities: + clubbing Skin: suspected Osler's nodes and Janeway lesions on soles of feet b/l, palms of hands, and in between first/2nd toes of left foot Psychiatric: Orientation: alert and oriented x 3 Lymphatic: no cervical lymphadenopathy Principal Diagnosis Septic shock, MRSA endocarditis, MRSA bacteremia Discharge Exam Constitutional: Well-appearing sitting in bed, in no acute distress Cardiac: Regular rate and rhythm no audible murmur, no gallops or rubs Pulmonary: No labored respirations, no muscle retractions, good movement of air throughout, no wheezes rhonchi or crackles noted Back: No costovertebral tenderness bilaterally Extremities: Healing Osler node of the right elbow, developing bruise between first and second digit of left foot, Janeway lesions and smaller Osler nodes present on the basis of both feet and palms of the hands Neuro: No numbness or tingling, moves all extremities, no focal weakness Discharge Data Allergies Allergy/AdvReac Type Severity Reaction Status Date / Time No Known Allergies Allergy Unverified 01/03/20 17:16 Consultations 01/03/20 18:17 ED Decision to Admit Stat 01/03/20 21:36 Consult Case Management - Discharge Planning Routine Consult Metal Expediter Routine 01/05/20 09:44 Consult Cardiology Routine 01/07/20 10:26 Consult Infectious Diseases Routine 01/07/20 11:50 Consult Case Management - Discharge Planning Routine 01/12/20 08:41 Consult Cardiology Routine Procedures Performed Operation Date: 01/12/20 07:30 <No data on this case meets the specified criteria> Ordered Studies 01/03/20 16:12 US point of care ultrasound Stat 01/03/20 16:24 CT angio chest PE protocol Stat 01/03/20 21:32 US point of care ultrasound Stat 01/10/20 10:47 MR lumbar spine wo/w con Stat 01/10/20 10:49 CT chest w con Urgent Hospital Course (1) Drug abuse, IV: 29-year-old female with history of prior Suboxone use and IV drug use with heroin presents with 2 weeks of fevers, chills, myalgias, hand and foot pain found to be in septic shock secondary to endocarditis with showering emboli. Endocarditis with MRSA Bacteremia First blood cultures on 01/02 grew MRSA sensitive to vancomycin and daptomycin. Initially treated with vancomycin IV. Transition from vancomycin to ceftaroline due to Vanco troughs being persistently low due to high clearance of Vanco through kidneys. Transition to daptomycin daily on 01/07. Blood cultures from 01/10 and 01/11 were the first negative cultures at 48 hours each to start treatment window of 6 weeks of IV antibiotics for endocarditis treatment. Transthoracic echocardiogram from 01/03 showing EF of 55-60, thickening of mitral valve anterior leaflet greater than posterior, visualized small 2 to 3 mm vegeta tion on mitral valve, no perivalvular abscess. Trace mitral regurg and moderate tricuspid regurg visualized as well as moderate thickening of tricuspid valve leaflets though no distinct vegetations visualized. Transthoracic echocardiogram repeated on 01/10 due to concerns of worsening subjective findings. Echo read as trace mitral regurg with mitral valve vegetation just under 1 cm at greatest dimension, moderate to severe tricuspid regurg with small vegetation on tricuspid valve. Cardiology was consulted regarding utility of performing a KILEY; they opined that a KILEY was not necessary at this juncture since on re-reviewing the TTE echo findings didn't show any worsening of vegetation. [facility] infectious disease consulted for assistance with comanagement of endocarditis and bacteremia in the setting of repeated positive MRSA blood cultures. They agreed with transition from ceftaroline to daptomycin and suggested KILEY. Regarding discharge medication to avoid sending patient home wi th an active IV site or having to come in daily for IV medications, they suggested a dose of 500 mg of Dalvance weekly with a weekly CBC CMP and CK trended for the duration of 6 weeks of treatment. Patient did receive a dose of Dalvance on discharge. No fever or elevated white blood cell count at discharge. Pulmonary Septic Emboli Diagnosed by CT chest on admission, repeat imaging on January 09 performed due to new oxygen requirement of 2 L nasal cannula. New image showed progression of nodular opacities with interval development of small bilateral pleural effusion. Effusions likely from malnutrition. No oxygen need on discharge. IV Drug abuse/opiate withdrawal Patient has a history of prior Suboxone use and after getting off of Suboxone had gone back to injecting up to 10 bags of heroin per day. After stabilization of her condition she expressed desire to stay off of drugs and at that point was placed on methadone. Methadone was titrated up to 50 mg twice daily at discharge with plan for patient to follow-up with methadone clinic the following day and received 100 mg daily starting on 01/14 at the methadone clinic. Patient also sent home with 400 mg of gabapentin at nighttime and 300 mg of gabapentin in the morning as well as 15 mg of oral ketorolac every 8 hours to assist with pain control and Tylenol 1000 every 8 hours p.o. I discussed with Dr. Marie at the healthcare or medical of the local methadone clinic that she would be following at their clinic the following day and would require first-aid dosing of methadone. Anxiety Extensive history of difficult family situations, foster care, abandonment etc. Started on lexapro 20 mg daily during stay. EKG showing no concern for QT prolo ngation. Malnutrition Patient is very thin and had an albumin of 1.5. At one point during the stay she was complaining of swelling in her legs and back. This may be anasarca secondary to the low albumin and poor diet. Dietitian consult was placed to discuss eating higher calorie and higher protein dense diet. Urinary incontinence Patient did have a few days of concerning urinary incontinence episodes. She at the same time was describing weakness on one side of her body that was concerning for a spinal abscess or vertebral cord compression. MRI of the lumbar spine with and without contrast was negative for an epidural abscess, vertebral compression of the spinal cord. L5 and S1 disc bulge with compression of the roots of the nerves was found. In the following day she reported improvement in her urinary continence. Most likely attributable to improving strength and decreasing mental fog with appropriate pain medication regimen. Total Time Total Time Spent Total Time Spent (In Minutes): See attending attestation Discharge Plan Discharge Items Patient Disposition: Home - Self-Care Reason For Visit: SEPTIC SHOCK Discharge Diagnosis: Septic shock, Septic pulmonary emboli, Endocarditis, Gram Positive Bacteremia Activity: Resume your previous activity Non-emergency contact: Primary Care Provider Call non-emergency contact if: your symptoms worsen and you have a fever Follow-up/Referrals: PCP,NO [Primary Care Provider] - Diet: Regular Addtl Attending Provider Instructions: You were treated for Endocarditis (infection of your heart valves) in the hospital. You also had a bloodstream infection with MRSA. You required treatment with Iv antibiotics (daptomycin) for full treatment. You will need to continue getting iv antibiotics (dalbavancin) through the hospital [facility] once a week for the next 6 weeks. You will also have a weekly CBC, CMP, CK drawn for monitoring. You have been scheduled for a follow up with Dr. Han on 01/21/2020 at 9:15 AM at [address] [facility] [address]. Keep your appointment with the Methadone clinic on 01/15/20. It is crucial that you are able to keep taking the antibiotics to ensure that this infection does not return or cause more damage. Pending Studies at Discharge: No Stand-Alone Forms: My [facility], Smoking Cessation Medications and DC Order Prescriptions: New gabapentin 400 mg Capsule 400 mg PO HS 30 Days Qty: 30 RF: 0 acetaminophen 500 mg Tablet 1,000 mg PO Q8H Qty: 60 RF: 0 gabapentin 300 mg Capsule 300 mg PO QAM 30 Days Qty: 30 RF: 0 nicotine 7 mg/24 hr Patch 24 Hour 7 mg transdermal QAM 30 Days RF: 0 escitalopram oxalate 20 mg Tablet 20 mg PO QAM 30 Days Qty: 30 RF: 0 diclofenac sodium [Voltaren] 1 % Gel 4 g EXT QID 30 Days RF: 0 ketorolac 10 mg tablet 10 mg PO Q8H PRN (Reason: pain) 5 Days Qty: 15 RF: 0 No Action No Known Home Medications RF: 0 Discharge Orders: Discharge Order (Routine); Ordered 01/14/20 Ordered By: Cait Han Admission Data Admit Date/Time: 01/03/20 19:21 Attending Provider: Myriam Vargas Admit Provider: Laz Henry Primary Care Provider: PCP,NO Other Providers: Cait Han ; Jules Escobar ; Juan Rowell ; Laz Henry ; Aquiles Flores ; Wilmer Zelaya ; Jaxson Nichols ; Charlene Huff ; Romero Shah I. ; Marcelino Zafar II ; Arlette Temple ; Jerzy Segura ; Michael Parikh ; Baljinder Breen Other Interventions: Discharge Summary Assessment (RN) Last Done: 01/14/20 13:58 Supervising Physician Co-Signing Physician Notes Resident Physician Supervision Note: I independently interviewed and examined the patient and verified the laura history and physical, reviewed labs and image studies, discussed the case with the resident Dr. Han and agree with the findings and care plan. Time spent in discharge 40 min Resident Activity Tracking Resident Involvement: Resident Care Provided Care Provided: Adult Hospital Medicine
[2020-01-14] MEDS: DAPTOmycin 575 MG in SYRINGE 0 ML IV SCH (14:54)
== END 2020-01-14 17:05 | disposition home or self-care (01) | DRG 871 ==
LOC: ED 16:03 → SUATTDRO 19:21 → 1E 19:21 → 2S 01-06 15:12 → 3E 01-07 18:54